=== PATIENT | female | born 1955 | race African-American/Black ===

== ENCOUNTER 2020-07-01 09:44 | Inpatient (IN) | payer MEDICARE, OTHER ==
--- NOTE | 2020-07-01 10:01 | BHS.RME ---
Substance Use & Tx History - Substance Use History Alcohol Substance amount: 2 pints liquor and 5 beers Frequency of use: Daily Substance route: Oral Date of Last Use: 07/01/20 Marijuana/Hashish Substance amount: $40 Frequency of use: Daily Substance route: Smoking Date of Last Use: 06/30/20 Nicotine Substance amount: 1 pack Frequency of use: Daily Substance route: Smoking Date of Last Use: 07/01/20 Physical/Psych/Mental Status - Behavior General Behavior: Increased activity (restlessness, agitation) Eye Contact: Normal - Cooperativeness Cooperativeness: Cooperative - Thinking Thought Processes: Tight, Logical, Goal Directed - Physical Health Problems Is patient presently having any pain?: No Does patient presently have any injuries (include location): No Does patient currently have a fever: No Is patient : No CIWA Nausea/Vomitin Muscle Tremors: 2 Anxiety: 2 Agitation: 2 Paroxysmal Sweats: 2 Orientation: 0-Oriented Tacttile Disturbances: 0-None Auditory Disturbances: 0-None Visual Disturbances: 0-None Headache: 2-Mild CIWA-Ar Total Score: 12
--- NOTE | 2020-07-01 12:49 | HP ---
CIWA Score Nausea/Vomitin Muscle Tremors: 2 Anxiety: 2 Agitation: 2 Paroxysmal Sweats: 2 Orientation: 0-Oriented Tacttile Disturbances: 0-None Auditory Disturbances: 0-None Visual Disturbances: 0-None Headache: 2-Mild CIWA-Ar Total Score: 12 - Admission Criteria OASAS Guidelines: Admission for Medically Managed Detox: Requires at least one of the followin. CIWA greater than 12 2. Seizures within the past 24 hours 3. Delirium tremens within the past 24 hours 4. Hallucinations within the past 24 hours 5. Acute intervention needed for co occurring medical disorder 6. Acute intervention needed for co occurring psychiatric disorder 7. Severe withdrawal that cannot be handled at a lower level of care (continued vomiting, continued diarrhea, abnormal vital signs) requiring intravenous medication and/or fluids 8. Admitting History and Physical - Admission Chief Complaint: Ms. Sanchez presents to [facility] stating "I need help, I'm drinking myself to ". History of Present Illness: Ms. Sanchez presents to [facility] stating "I need help, I'm drinking myself to ". She was last here in 2011. Her longest sobriety was less than one week. PMH: DM, hypothyroid, COPD PSH: ovarian tumor Psych: bipolar on gabapentin, risperdone and Seroquel SOC: own place in [place] Legal: none - Substance Use History Alcohol Substance amount: 2 pints liquor and 5 beers Frequency of use: Daily Substance route: Oral Date of Last Use: 07/01/20 First use age 14 y No seizure Blackouts: yes, last was 2 mos ago Admits to an eye printer machine Marijuana/Hashish Substance amount: $40 Frequency of use: Daily Substance route: Smoking Date of Last Use: 06/30/20 First use age 13 y Nicotine Substance amount: 1 pack Frequency of use: Daily Substance route: Smoking Date of Last Use: 07/01/20 First use age 13 y History Source: Patient Limitations to Obtaining History: No Limitations - Past Medical History ...LMP: 07/31/95 - Smoking History Smoking history: Current every day smoker Have you smoked in the past 12 months: Yes Aproximately how many cigarettes per day: 20 - Alcohol/Substance Use Hx Alcohol Use: Yes Admission ROS S - HPI Allergies/Adverse Reactions: Allergies Allergy/AdvReac Type Severity Reaction Status Date / Time chlorpromazine HCl Allergy Severe Verified 10/08/12 17:11 [From Thorazine] haloperidol [From Haldol] Allergy Severe Verified 10/08/12 17:11 haloperidol lactate Allergy Severe Verified 10/08/12 17:11 [From Haldol] thioridazine HCl Allergy Severe Verified 10/08/12 17:11 [From Mellaril] Exam Limitations: No Limitations - Ebola screening Have you traveled outside of the country in the last 21 days: No Have you been sick,other than usual withdrawal symptoms: No Do you have a fever: No - Review of Systems Constitutional: Unintentional Wgt. Loss (15 lbs in the past few mos she attributes to drinking alcohol) EENT: reports: No Symptoms Reported Respiratory: reports: No Symptoms reported Cardiac: reports: No Symptoms Reported GI: reports: No Symptoms Reported : reports: No Symptoms Reported Musculoskeletal: reports: No Symptoms Reported Integumentary: reports: No Symptoms Reported Neuro: reports: No Symptoms reported Endocrine: reports: Other (has DM, home glucose avg am glucose is 215) Psychiatric: reports: Anxious Patient History - Patient Medical History Hx Anemia: No Hx Asthma: No Hx Chronic Obstructive Pulmonary Disease (COPD): No Hx Cancer: No Hx Cardiac Disorders: Yes (UNSTABLE ANGINA) Hx Congestive Heart Failure: No Hx Hypertension: Yes (on medication) Hx Hypercholesterolemia: Yes (on medication) Hx Pacemaker: No HX Cerebrovascular Accident: No Hx Seizures: No Hx Dementia: No Hx Diabetes: Yes (on Insulin) Hx Gastrointestinal Disorders: Yes (Acid Reflux) Hx Genitourinary Disorders: No Hx Sexually Transmitted Disorders: Yes (unsure of name of disease) Hx Renal Disease (ESRD): No Hx Thyroid Disease: Yes (hypothyroidism) Hx Human Immunodeficiency Virus (HIV): No Hx Hepatitis C: No Hx Depression: Yes Hx Suicide Attempt: No Hx Bipolar Disorder: Yes (on medication) Hx Schizophrenia: No - Patient Surgical History Past Surgical History: Yes Hx Neurologic Surgery: No Hx Cataract Extraction: No Hx Cardiac Surgery: No Hx Lung Surgery: No Hx Breast Surgery: No Hx Breast Biopsy: No Hx Abdominal Surgery: No Hx Appendectomy: No Hx Cholecystectomy: No Hx Genitourinary Surgery: No Hx Section: No Hx Orthopedic Surgery: No Other Surgical History: Cyst removed from both ovaries in 1991 Anesthesia Reaction: No - PPD History Date: 08/02/12 - Reproductive History Last Menstrual Period: 07/31/95 - Smoking Cessation Smoking history: Current every day smoker Have you smoked in the past 12 months: Yes Aproximately how many cigarettes per day: 20 Hx Chewing Tobacco Use: No Initiated information on smoking cessation: Yes 'Breaking Loose' booklet given: 07/01/20 Admission Physical Exam [facility] - Vital Signs Vital Signs: 119/78, HR 124, RR 19, temp 97.0 - Physical General Appearance: Yes: No Apparent Distress, Nourished HEENTM: Yes: EOMI, Hearing grossly Normal, Normocephalic, Normal Voice Respiratory: Yes: Lungs Clear, Normal Breath Sounds, No Respiratory Distress, No Accessory Muscle Use Neck: Yes: Within Normal Limits, Supple Breast: Yes: Breast Exam Deferred Cardiology: Yes: Regular Rhythm, Regular Rate, S1, S2 Abdominal: Yes: Normal Bowel Sounds, Non Tender, Soft, Protuberent Back: Yes: Normal Inspection Musculoskeletal: Yes: full range of Motion, Gait Steady Extremities: Yes: Normal Inspection, Non-Tender Neurological: Yes: Alert, Normal Response Integumentary: Yes: Normal Color, Dry, Warm - Diagnostic (1) Alcohol dependence with withdrawal, uncomplicated Current Visit: Yes Status: Acute (2) Cannabis abuse Current Visit: Yes Status: Acute (3) Nicotine dependence Current Visit: Yes Status: Acute Qualifiers: Nicotine product type: cigarettes Substance use status: uncomplicated Qualified Code(s): F17.210 - Nicotine dependence, cigarettes, uncomplicated (4) Bipolar 1 disorder Current Visit: Yes Status: Chronic (5) DM Diabetes mellitus type 2 Current Visit: Yes Status: Acute (6) Hypothyroidism Current Visit: No Status: Chronic Cleared for Admission [facility] - Detox or Rehab [facility] Level of Care: Medically Managed Detox Regimen/Protocol: Librium Breathalyzer - Breathalyzer Breathalyzer: 0 Urine Drug Screen - Test Device Lot number: [id number] Expiration date: 06/28/22 - Control Is test valid?: Yes - Results Drug screen NEGATIVE: No Urine drug screen results: THC-Marijuana Inpatient Rehab Admission - Rehab Decision to Admit Inpatient rehab admission?: No
[2020-07-01] MEDS ORDERED: ASPIRIN COATED PO SCH (13:00)
[2020-07-01] MEDS ORDERED: LEVOTHYROXINE PO SCH (13:00)
[2020-07-01] MEDS ORDERED: ENALAPRIL MALEATE PO SCH (13:00)
[2020-07-01] MEDS ORDERED: MAGNESIUM CITRATE 300 ML BOTTLE PO PRN (13:01)
[2020-07-01] MEDS ORDERED: IBUPROFEN 400 MG TABLET (FP) PO PRN (13:01)
[2020-07-01] MEDS ORDERED: ACETAMINOPHEN 325 MG TABLET (FP) PO PRN (13:01)
[2020-07-01] MEDS ORDERED: METHOCARBAMOL 500 MG TABLET PO PRN (13:01)
[2020-07-01] MEDS ORDERED: NICOTINE POLACRILEX 2 MG GUM BUC PRN (13:01)
[2020-07-01] MEDS ORDERED: BISMUTH SUBSALICYLATE 262 MG/15 ML BTL PO PRN (13:01)
[2020-07-01] MEDS ORDERED: ONDANSETRON *ODT* 4 MG TABLET SL ONE (13:01)
[2020-07-01] MEDS ORDERED: MENTHOL/PHENOL 1 EACH UD MM PRN (13:01)
[2020-07-01] MEDS ORDERED: chlordiazePOXIDE HCL 25 MG CAPSULE PO PRN (13:01)
[2020-07-01 13:35] VITALS: BMI 29.5
[2020-07-01] MEDS: ENALAPRIL MALEATE 10 MG TABLET (FP) PO SCH (15:07)
[2020-07-01] MEDS: hydrOXYzine PAMOATE 25 MG CAPSULE (FP) PO SCH ×3 (15:07→22:25)
[2020-07-01] MEDS ORDERED: INSULIN SLIDING SCALE (NOVOLOG) 1 VIAL SQ ONE (16:58)
[2020-07-01 17:02] LABS: HEMATOCRIT 46.2 % (32.4-45.2); HEMOGLOBIN 15.6 GM/dL (10.7-15.3); MCHC 33.7 g/dl (32.0-36.0); PLATELET COUNT 303 K/MM3 (134-434); RBC 5.18 M/mm3 (3.60-5.2); RDW 15.1 % (11.6-15.6); WHITE BLOOD COUNT 9.4 K/mm3 (4.0-10.0)
[2020-07-01] MEDS: chlordiazePOXIDE HCL 25 MG CAPSULE PO SCH ×2 (17:24→22:26)
[2020-07-01] MEDS: INSULIN SLIDING SCALE (NOVOLOG) 1 VIAL SQ SCH ×2 (17:25→22:31)
[2020-07-01 17:33] LABS: ALBUMIN 3.4 g/dl (3.4-5.0); BILIRUBIN,TOTAL 0.6 mg/dL (0.2-1); CALCIUM 9.2 mg/dL (8.5-10.1); CREATININE 0.8 mg/dL (0.55-1.3); POTASSIUM 4.2 mmol/L (3.5-5.1); TOT PROT 7.4 g/dl (6.4-8.2)
[2020-07-01] MEDS: ATORVASTATIN CA 10 MG TABLET (FP) PO SCH (22:25)
[2020-07-01] MEDS: metFORMIN HCL 500 MG TABLET (FP) PO SCH (22:26)
[2020-07-01] MEDS: MELATONIN 5 MG TABLETS PO SCH (22:26)
[2020-07-01] MEDS: MAG HYDROX/AL HYDROX/SIMETH 30 ML UNIT-DOSE CUP PO PRN (22:26)
[2020-07-01] MEDS: INSULIN (LEVEMIR) 100 UNITS/ML UNITS SQ SCH (22:30)
[2020-07-01] MEDS: THIAMINE HCL 100 MG TABLET (FP) PO SCH (22:32)
[2020-07-02] MEDS: hydrOXYzine PAMOATE 25 MG CAPSULE (FP) PO SCH ×5 (05:39→22:37)
[2020-07-02] MEDS: chlordiazePOXIDE HCL 25 MG CAPSULE PO SCH ×4 (05:39→22:37)
[2020-07-02] MEDS: metFORMIN HCL 500 MG TABLET (FP) PO SCH ×3 (06:24→22:43)
[2020-07-02] MEDS: INSULIN SLIDING SCALE (NOVOLOG) 1 VIAL SQ SCH ×4 (07:02→22:43)
[2020-07-02] MEDS: LEVOTHYROXINE NA 25 MCG TABLET (FP) PO SCH (07:06)
[2020-07-02] MEDS ORDERED: PATIENT'S OWN MEDICATION (NON-FORMULARY) (Simvastatin [Zocor] 20 MG) PO SCH (10:00)
[2020-07-02] MEDS: PRENATAL VITAMINS W/ FOLIC ACID TABLET (FP) PO SCH (10:04)
[2020-07-02] MEDS: ENALAPRIL MALEATE 10 MG TABLET (FP) PO SCH (10:04)
[2020-07-02] MEDS: NICOTINE 7 MG/24 HOURS TOPICAL PATCH TD SCH (10:04)
[2020-07-02] MEDS: ASPIRIN COATED 81 MG TABLET.EC PO SCH (10:04)
--- NOTE | 2020-07-02 11:10 | CONSULT ---
[facility] Psychiatric Consult - Data Date of interview: 07/02/20 Admission source: [facility] Identifying data: Revisit to [facility] and admission to [address] [place] [address] for this 65 y/o AA female self-referred for detoxification treatment. SHAKIRA issues : alcohol, cannabis, nicotine. Patient is , mother of two, domiciled, unemployed and supported on SSI benefits. Substance Abuse History: Discussed with the patient. SHAKIRA profile as follows : Alcohol. Substance amount: 2 pints liquor and 5 beers. Frequency of use: Daily. Substance route: Oral. Date of Last Use: 07/01/20. First use age 14 y. No seizure. Blackouts: yes, last was 2 mos ago. 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 Marijuana/Hashish. Substance amount: $40. Frequency of use: Daily. Substance route: Smoking. Date of Last Use: 06/30/20. First use age 13 y. Nicotine. Substance amount: 1 pack. Frequency of use: Daily. Substance route: Smoking. Date of Last Use: 07/01/20. First use age 13 y. History Source: Patient. Limitations to Obtaining History: No Limitations Medical History: Medical profile is remarkable for hypothyroidism, dyslipidemia, diabetes mellitus, COPD, hypertension and history of surgery (excision of ovarian cysts : both ovaries). Psychiatric History: Patient presents with a history of multiple psychiatric hospitalizations ([facility] + [facility] + [facility] + [facility] + [facility]). Onset of psychiatric disturbances : age 14. Diagnosed with Bipolar Disorder. Ms Sanchez states that she sees a psychiatrist for medication management at the [facility] in [facility]. She endorses compliance with her medications and she insists on their continuation dyring this hospital course. Patient admits to a distant history of two suicide attempts (hanging + overdose with pills). Physical/Sexual Abuse/Trauma History: Not discussed. Patient declines. Additional Comment: Urine drug screen results: THC-Marijuana. Noted. Mental Status Exam - Mental Status Exam Alert and Oriented to: Time, Place, Person Cognitive Function: Good Patient Appearance: Disheveled Mood: Nervous, Withdrawn Affect: Mood Congruent, Constricted Patient Behavior: Fatigued, Appropriate, Cooperative Speech Pattern: Clear, Appropriate Voice Loudness: Normal Thought Process: Goal Oriented Thought Disorder: Not Present Hallucinations: Denies Suicidal Ideation: Denies Homicidal Ideation: Denies Insight/Judgement: Poor Sleep: Poorly, Difficulty falling asleep Appetite: Good Gait/Station: Other (not observed; in bed during interview) Psychiatric Findings - Problem List ([place] 1, 2,3) (1) Alcohol dependence with withdrawal, uncomplicated Current Visit: Yes Status: Acute (2) Cannabis abuse Current Visit: Yes Status: Chronic (3) Nicotine dependence Current Visit: Yes Status: Chronic Qualifiers: Nicotine product type: cigarettes Substance use status: uncomplicated Qualified Code(s): F17.210 - Nicotine dependence, cigarettes, uncomplicated (4) History of bipolar disorder Current Visit: Yes Status: Chronic (5) Substance induced mood disorder Current Visit: Yes Status: Chronic (6) Insomnia Current Visit: Yes Status: Chronic - Initial Treatment Plan Initial Treatment Plan: Psychoeducation. Sleep hygiene. Support. Detoxification in progress. Contact made with pharmacist, at [facility] ([phone]), for verification of medications : refills on file for seroquel 50 mg/am and 300 mg/hs + gabapentin 400 mg/bid + risperdal 3 mg/hs + vistaril 25 mg prn (picked up on 06/22/20). As per pharmacist, the patient will not need refills at discharge from [facility] (she has refills already available from [facility] provider). Will resume medications as follows (doses reduced in view of potential for oversedation + falls) : seroquel 50 mg po daily + 100 mg po hs + risperdal 1 mg po hs. Side effects/benefits of these molecules are discussed with the patient. Full doses to be restored upon completion of detoxification treatment. Patient is in agreement with this plan of care. Informed consent (verbal) granted to MD. Summers.
--- NOTE | 2020-07-02 12:59 | PN ---
[facility] CIWA - CIWA Score Nausea/Vomitin-No Nausea/No Vomiting Muscle Tremors: 2 Anxiety: 3 Agitation: 1-Slight > Activity Paroxysmal Sweats: 3 Orientation: 0-Oriented Tacttile Disturbances: 0-None Auditory Disturbances: 0-None Visual Disturbances: 0-None Headache: 0-None Present CIWA-Ar Total Score: 9 S Progress Note (SOAP) Subjective: c/o sweats, shakes, anxiety, headache, and irritability. Objective: 07/02/20 12:57 Vital Signs 07/02/20 07/02/20 06:49 08:40 Temperature 97.1 F L 98.4 F Pulse Rate 96 H 92 H Respiratory 16 18 Rate Blood Pressure 108/76 122/81 O2 Sat by Pulse 99 99 Oximetry (%) Laboratory Last Values WBC 9.4 K/mm3 (4.0-10.0) 07/01/20 12:15 RBC 5.18 M/mm3 (3.60-5.2) 07/01/20 12:15 Hgb 15.6 GM/dL (10.7-15.3) H 07/01/20 12:15 Hct 46.2 % (32.4-45.2) H D 07/01/20 12:15 MCV 89.0 fl (80-96) 07/01/20 12:15 MCH 30.0 pg (25.7-33.7) 07/01/20 12:15 MCHC 33.7 g/dl (32.0-36.0) 07/01/20 12:15 RDW 15.1 % (11.6-15.6) 07/01/20 12:15 Plt Count 303 K/MM3 (134-434) 07/01/20 12:15 MPV 10.0 fl (7.5-11.1) 07/01/20 12:15 Sodium 141 mmol/L (136-145) 07/01/20 12:15 Potassium 4.2 mmol/L (3.5-5.1) 07/01/20 12:15 Chloride 106 mmol/L (98-107) 07/01/20 12:15 Carbon Dioxide 23 mmol/L (21-32) 07/01/20 12:15 Anion Gap 12 MMOL/L (8-16) 07/01/20 12:15 BUN 4.0 mg/dL (7-18) L 07/01/20 12:15 Creatinine 0.8 mg/dL (0.55-1.3) 07/01/20 12:15 Est GFR (CKD-EPI)AfAm 88.42 07/01/20 12:15 Est GFR (CKD-EPI)NonAf 76.29 07/01/20 12:15 POC Glucometer 319 UNITS (80-120) 07/02/20 11:22 Random Glucose 114 mg/dL (74-106) H 07/01/20 12:15 Calcium 9.2 mg/dL (8.5-10.1) 07/01/20 12:15 Total Bilirubin 0.6 mg/dL (0.2-1) 07/01/20 12:15 AST 36 U/L (15-37) 07/01/20 12:15 ALT 30 U/L (13-61) 07/01/20 12:15 Alkaline Phosphatase 123 U/L (45-117) H 07/01/20 12:15 Total Protein 7.4 g/dl (6.4-8.2) 07/01/20 12:15 Albumin 3.4 g/dl (3.4-5.0) 07/01/20 12:15 Syphilis Serology Non-reactive (NONREACTIVE) 07/01/20 12:15 Labs noted. Assessment: 07/02/20 12:58 AOX3 and in no acute respiratory distress. Full ROM, ambulating in the unit. Withdrawal symptoms. Plan: continue detox.
[2020-07-02] MEDS ORDERED: INSULIN SLIDING SCALE (NOVOLOG) 1 VIAL SQ ONE ×2 (17:50→22:18)
[2020-07-02] MEDS: MAG HYDROX/AL HYDROX/SIMETH 30 ML UNIT-DOSE CUP PO PRN (18:19)
[2020-07-02] MEDS: THIAMINE HCL 100 MG TABLET (FP) PO SCH (22:37)
[2020-07-02] MEDS: QUEtiapine FUMARATE 100 MG TABLET (FP) PO SCH (22:37)
[2020-07-02] MEDS: ATORVASTATIN CA 10 MG TABLET (FP) PO SCH (22:37)
[2020-07-02] MEDS: MELATONIN 5 MG TABLETS PO SCH (22:38)
[2020-07-02] MEDS: risperiDONE 1 MG TABLET PO SCH (22:38)
[2020-07-02] MEDS: INSULIN (LEVEMIR) 100 UNITS/ML UNITS SQ SCH (22:43)
[2020-07-03] MEDS: chlordiazePOXIDE HCL 25 MG CAPSULE PO SCH ×2 (05:40→10:06)
[2020-07-03] MEDS: hydrOXYzine PAMOATE 25 MG CAPSULE (FP) PO SCH ×2 (05:40→10:05)
[2020-07-03] MEDS: INSULIN SLIDING SCALE (NOVOLOG) 1 VIAL SQ SCH ×4 (06:00→21:43)
[2020-07-03] MEDS ORDERED: INSULIN SLIDING SCALE (NOVOLOG) 1 VIAL SQ ONE ×2 (06:01→10:57)
[2020-07-03] MEDS: LEVOTHYROXINE NA 25 MCG TABLET (FP) PO SCH (06:06)
[2020-07-03] MEDS: metFORMIN HCL 500 MG TABLET (FP) PO SCH ×2 (06:06→21:42)
[2020-07-03] MEDS ORDERED: MASKS NR ONE (08:23)
[2020-07-03] MEDS: QUEtiapine FUMARATE 25 MG TABLET PO SCH (10:06)
[2020-07-03] MEDS: PRENATAL VITAMINS W/ FOLIC ACID TABLET (FP) PO SCH (10:07)
[2020-07-03] MEDS: ENALAPRIL MALEATE 10 MG TABLET (FP) PO SCH (10:07)
[2020-07-03] MEDS: NICOTINE 7 MG/24 HOURS TOPICAL PATCH TD SCH (10:08)
[2020-07-03] MEDS: ASPIRIN COATED 81 MG TABLET.EC PO SCH (10:08)
--- NOTE | 2020-07-03 11:33 | PN ---
[facility] CIWA - CIWA Score Nausea/Vomitin-No Nausea/No Vomiting Muscle Tremors: 3 Anxiety: 1-Mildly Anxious Agitation: 1-Slight > Activity Paroxysmal Sweats: 1-Minimal Palms Moist Orientation: 2-Disoriented Date<2 days (to days of month) Tacttile Disturbances: 0-None Auditory Disturbances: 0-None Visual Disturbances: 0-None Headache: 0-None Present CIWA-Ar Total Score: 8 BHS Progress Note (SOAP) Subjective: 65 years old obese female admitted on 07/01/20 for alcohol withdrawal sx management treating with librium detox regiment sitting on the edge of the bed eating breakfast no trouble chewing or swallowing slow self feeding hand to mouth motion speech slow disoriented to days of month discontinue vistaril ammonia level hcv tsh papcid 20 mg po bid discontinue motrin cane for ambulation Objective: 07/03/20 11:33 Vital Signs - 24 hr 07/02/20 07/02/20 07/02/20 13:00 16:52 20:35 Temperature 96.8 F L 96.9 F L 97.3 F L Pulse Rate 60 88 100 H Respiratory 18 18 16 Rate Blood Pressure 100/65 108/89 109/68 O2 Sat by Pulse 99 98 Oximetry (%) 07/03/20 07/03/20 05:43 08:35 Temperature 96.8 F L 96.1 F L Pulse Rate 88 90 Respiratory 20 18 Rate Blood Pressure 114/75 111/77 O2 Sat by Pulse 98 98 Oximetry (%) Laboratory Tests 07/01/20 07/01/20 07/01/20 12:15 12:15 12:15 WBC 9.4 RBC 5.18 Hgb 15.6 H Hct 46.2 H D MCV 89.0 MCH 30.0 MCHC 33.7 RDW 15.1 Plt Count 303 MPV 10.0 Sodium 141 Potassium 4.2 Chloride 106 Carbon Dioxide 23 Anion Gap 12 BUN 4.0 L Creatinine 0.8 Est GFR (CKD-EPI)AfAm 88.42 Est GFR (CKD-EPI)NonAf 76.29 POC Glucometer Random Glucose 114 H Calcium 9.2 Total Bilirubin 0.6 AST 36 ALT 30 Alkaline Phosphatase 123 H Total Protein 7.4 Albumin 3.4 Syphilis Serology Non-reactive COVID-19 (DAIJA) 07/01/20 07/01/2020 13:55 14:00 16:39 WBC RBC Hgb Hct MCV MCH MCHC RDW Plt Count MPV Sodium Potassium Chloride Carbon Dioxide Anion Gap BUN Creatinine Est GFR (CKD-EPI)AfAm Est GFR (CKD-EPI)NonAf POC Glucometer 131 211 Random Glucose Calcium Total Bilirubin AST ALT Alkaline Phosphatase Total Protein Albumin Syphilis Serology COVID-19 (DAIJA) Not detected 07/01/20 07/02/20 07/02/20 21:08 05:38 11:22 WBC RBC Hgb Hct MCV MCH MCHC RDW Plt Count MPV Sodium Potassium Chloride Carbon Dioxide Anion Gap BUN Creatinine Est GFR (CKD-EPI)AfAm Est GFR (CKD-EPI)NonAf POC Glucometer 88 103 319 Random Glucose Calcium Total Bilirubin AST ALT Alkaline Phosphatase Total Protein Albumin Syphilis Serology COVID-19 (DAIJA) 07/02/20 07/02/20 07/03/20 16:31 20:43 05:39 WBC RBC Hgb Hct MCV MCH MCHC RDW Plt Count MPV Sodium Potassium Chloride Carbon Dioxide Anion Gap BUN Creatinine Est GFR (CKD-EPI)AfAm Est GFR (CKD-EPI)NonAf POC Glucometer 106 217 248 Random Glucose Calcium Total Bilirubin AST ALT Alkaline Phosphatase Total Protein Albumin Syphilis Serology COVID-19 (DAIJA) 07/03/20 10:44 WBC RBC Hgb Hct MCV MCH MCHC RDW Plt Count MPV Sodium Potassium Chloride Carbon Dioxide Anion Gap BUN Creatinine Est GFR (CKD-EPI)AfAm Est GFR (CKD-EPI)NonAf POC Glucometer 168 Random Glucose Calcium Total Bilirubin AST ALT Alkaline Phosphatase Total Protein Albumin Syphilis Serology COVID-19 (DAIJA) 07/03/20 11:33 hold lisinopril if systolic below 110 insulin dependent diabetes II with insulin coverage Assessment: 07/03/20 11:35 alcohol withdrawal 07/03/20 11:35 hypothyroidism Plan: librium regiment
[2020-07-03] MEDS: FAMOTIDINE 20 MG TABLET PO SCH ×2 (12:06→21:43)
[2020-07-03] MEDS: MAG HYDROX/AL HYDROX/SIMETH 30 ML UNIT-DOSE CUP PO PRN (13:50)
[2020-07-03] MEDS ORDERED: ONDANSETRON *ODT* 4 MG TABLET SL ONE (15:02)
[2020-07-03] MEDS ORDERED: DICYCLOMINE HCL 20 MG TABLET PO ONE (15:04)
[2020-07-03] MEDS ORDERED: DICYCLOMINE HCL 10 MG CAPSULE PO ONE (16:00)
[2020-07-03] MEDS: chlordiazePOXIDE HCL 10 MG CAPSULE PO SCH ×2 (16:37→22:38)
[2020-07-03] MEDS: INSULIN (LEVEMIR) 100 UNITS/ML UNITS SQ SCH (21:42)
[2020-07-03] MEDS: THIAMINE HCL 100 MG TABLET (FP) PO SCH (21:42)
[2020-07-03] MEDS: ATORVASTATIN CA 10 MG TABLET (FP) PO SCH (21:42)
[2020-07-03] MEDS: MELATONIN 5 MG TABLETS PO SCH (21:43)
[2020-07-03] MEDS: risperiDONE 1 MG TABLET PO SCH ×2 (21:44→23:31)
[2020-07-03] MEDS: QUEtiapine FUMARATE 100 MG TABLET (FP) PO SCH (21:44)
[2020-07-04] MEDS ORDERED: chlordiazePOXIDE HCL 10 MG CAPSULE PO PRN
[2020-07-04] MEDS: ACETAMINOPHEN 325 MG TABLET (FP) PO PRN (03:52)
[2020-07-04] MEDS ORDERED: chlordiazePOXIDE HCL 10 MG CAPSULE PO SCH (05:00)
[2020-07-04] MEDS: metFORMIN HCL 500 MG TABLET (FP) PO SCH ×2 (06:06→22:14)
[2020-07-04] MEDS: LEVOTHYROXINE NA 25 MCG TABLET (FP) PO SCH (06:06)
[2020-07-04] MEDS: chlordiazePOXIDE 5 MG CAPSULE PO SCH ×3 (06:06→22:14)
[2020-07-04] MEDS ORDERED: INSULIN SLIDING SCALE (NOVOLOG) 1 VIAL SQ ONE ×4 (06:08→16:50)
[2020-07-04] MEDS: INSULIN SLIDING SCALE (NOVOLOG) 1 VIAL SQ SCH ×4 (08:03→22:27)
[2020-07-04] MEDS: QUEtiapine FUMARATE 25 MG TABLET PO SCH (09:35)
[2020-07-04] MEDS: PRENATAL VITAMINS W/ FOLIC ACID TABLET (FP) PO SCH (09:35)
[2020-07-04] MEDS: NICOTINE 7 MG/24 HOURS TOPICAL PATCH TD SCH (09:35)
[2020-07-04] MEDS: ENALAPRIL MALEATE 10 MG TABLET (FP) PO SCH (09:36)
[2020-07-04] MEDS: FAMOTIDINE 20 MG TABLET PO SCH ×2 (09:36→22:15)
[2020-07-04] MEDS: ASPIRIN COATED 81 MG TABLET.EC PO SCH (09:36)
--- NOTE | 2020-07-04 12:19 | PN ---
S CIWA - CIWA Score Nausea/Vomitin-Mild Nausea/No Vomiting Muscle Tremors: 2 Anxiety: 1-Mildly Anxious Agitation: 0-Normal Activity Paroxysmal Sweats: 1-Minimal Palms Moist Orientation: 0-Oriented Tacttile Disturbances: 0-None Auditory Disturbances: 0-None Visual Disturbances: 0-None Headache: 0-None Present CIWA-Ar Total Score: 5 BHS Progress Note (SOAP) Subjective: 65 years old female admitted on 07/01/20 for alcohol withdrawal sx management treating with librium detox regiment ms paulson is chronic alcoholism states that feeling dizziness and incoordination denies visual field loss but tired prefers to close eyes and resting in bed pupils size regular, equal, reaction to light, unable to complete accommodation weak masseter muscles clenches upper and lower eye lids edematous ms rodriguez seems sedated psychiatric referral for possible seroquel dosage adjustment Objective: 07/04/20 15:17 Vital Signs - 24 hr 07/03/20 07/03/20 07/04/20 16:49 21:10 07:37 Temperature 97.3 F L 97.1 F L 98 F Pulse Rate 98 H 101 H 88 Respiratory 16 16 18 Rate Blood Pressure 122/64 136/84 133/85 O2 Sat by Pulse 95 97 Oximetry (%) 07/04/20 07/04/20 07/04/20 08:40 12:35 14:52 Temperature 96.8 F L 96.8 F L Pulse Rate 89 102 H 94 H Respiratory 16 16 Rate Blood Pressure 128/78 162/96 120/76 O2 Sat by Pulse 98 Oximetry (%) Laboratory Tests 07/01/20 07/01/20 07/01/20 12:15 12:15 12:15 WBC 9.4 RBC 5.18 Hgb 15.6 H Hct 46.2 H D MCV 89.0 MCH 30.0 MCHC 33.7 RDW 15.1 Plt Count 303 MPV 10.0 Sodium 141 Potassium 4.2 Chloride 106 Carbon Dioxide 23 Anion Gap 12 BUN 4.0 L Creatinine 0.8 Est GFR (CKD-EPI)AfAm 88.42 Est GFR (CKD-EPI)NonAf 76.29 POC Glucometer Random Glucose 114 H Calcium 9.2 Total Bilirubin 0.6 AST 36 ALT 30 Alkaline Phosphatase 123 H Ammonia Total Protein 7.4 Albumin 3.4 Syphilis Serology Non-reactive COVID-19 (DAIJA) 07/01/20 07/01/20 07/01/20 13:55 14:00 16:39 WBC RBC Hgb Hct MCV MCH MCHC RDW Plt Count MPV Sodium Potassium Chloride Carbon Dioxide Anion Gap BUN Creatinine Est GFR (CKD-EPI)AfAm Est GFR (CKD-EPI)NonAf POC Glucometer 131 211 Random Glucose Calcium Total Bilirubin AST ALT Alkaline Phosphatase Ammonia Total Protein Albumin Syphilis Serology COVID-19 (DAIJA) Not detected 07/01/20 07/02/20 07/02/20 21:08 05:38 11:22 WBC RBC Hgb Hct MCV MCH MCHC RDW Plt Count MPV Sodium Potassium Chloride Carbon Dioxide Anion Gap BUN Creatinine Est GFR (CKD-EPI)AfAm Est GFR (CKD-EPI)NonAf POC Glucometer 88 103 319 Random Glucose Calcium Total Bilirubin AST ALT Alkaline Phosphatase Ammonia Total Protein Albumin Syphilis Serology COVID-19 (DAIJA) 07/02/20 07/02/20 07/03/20 16:31 20:43 05:39 WBC RBC Hgb Hct MCV MCH MCHC RDW Plt Count MPV Sodium Potassium Chloride Carbon Dioxide Anion Gap BUN Creatinine Est GFR (CKD-EPI)AfAm Est GFR (CKD-EPI)NonAf POC Glucometer 106 217 248 Random Glucose Calcium Total Bilirubin AST ALT Alkaline Phosphatase Ammonia Total Protein Albumin Syphilis Serology COVID-19 (DAIJA) 07/03/20 07/03/20 07/03/20 10:44 16:40 21:12 WBC RBC Hgb Hct MCV MCH MCHC RDW Plt Count MPV Sodium Potassium Chloride Carbon Dioxide Anion Gap BUN Creatinine Est GFR (CKD-EPI)AfAm Est GFR (CKD-EPI)NonAf POC Glucometer 168 216 206 Random Glucose Calcium Total Bilirubin AST ALT Alkaline Phosphatase Ammonia Total Protein Albumin Syphilis Serology COVID-19 (DAIJA) 07/04/20 07/04/20 07/04/20 06:05 08:30 11:50 WBC RBC Hgb Hct MCV MCH MCHC RDW Plt Count MPV Sodium Potassium Chloride Carbon Dioxide Anion Gap BUN Creatinine Est GFR (CKD-EPI)AfAm Est GFR (CKD-EPI)NonAf POC Glucometer 276 260 Random Glucose Calcium Total Bilirubin AST ALT Alkaline Phosphatase Ammonia 71.90 H Total Protein Albumin Syphilis Serology COVID-19 (DAIJA) ammonia level elevation lactulose 20 grams po repeat ammonia Assessment: 07/04/20 15:25 alcohol withdrawal hyperammonia Plan: librium regiment lactulose 20 grams repeat ammonia serum level
[2020-07-04] MEDS ORDERED: LACTULOSE 20 GM/30 ML UDC (FOR ORAL USE ONLY) PO ONE (14:18)
[2020-07-04] MEDS ORDERED: ALBUTEROL SO4 HFA INHALER IH PRN (14:32)
--- NOTE | 2020-07-04 14:57 | PN ---
Psychiatric Progress Note Vital Signs: Vital Signs Period Temp Pulse Resp BP Sys/Hinkle Pulse Ox Last 24 Hr 96.8 F-98 F 88-102 16-18 122-162/64-96 95-98 Date of Session: 07/04/20 Chief Complaint:: " I feel better today than yesterday. " HPI: Seen by Psychiatry on 07/02/20. Patient is a 65 y/o AA female with Bipolar Disorder co-morbid with SHAKIRA issues (alcohol + cannabis). Sedation is the reason for this psychiatric re-evaluation. ROS: Patient is alert and fully oriented on examination. Conversant. Admits to feeling less drowsy today than yesterday. Current Medications: Active Medications Generic Name Dose Route Start Last Admin Trade Name Freq PRN Reason Stop Dose Admin Acetaminophen 650 mg 07/01/20 13:01 07/04/20 03:52 Tylenol - PO 650 mg Q6H PRN Administration PAIN LEVEL 4 - 6 Acetaminophen 650 mg 07/01/20 13:01 Tylenol - PO Q6H PRN FEVER Al Hydroxide/Mg Hydroxide 30 ml 07/01/20 13:01 07/03/20 13:50 Mylanta Oral Suspension - PO 30 ml Q6H PRN Administration DYSPEPSIA Albuterol Sulfate 2 puff 07/04/20 14:32 Ventolin Hfa Inhaler - IH Q4H PRN SHORT OF BREATH/WHEEZING Aspirin 81 mg 07/02/20 10:00 07/04/20 09:36 Ecotrin - PO 81 mg DAILY JANELL Administration Atorvastatin Calcium 10 mg 07/01/20 22:00 07/03/20 21:42 Lipitor - PO 10 mg HS JANELL Administration Bismuth Subsalicylate 30 ml 07/01/20 13:01 Pepto-Bismol Liquid - PO Q1H PRN DIARRHEA Chlordiazepoxide HCl 10 mg 07/04/20 00:00 Librium - PO 07/05/20 00:00 Q4H PRN WITHDRAWAL(CONT SUBST) Chlordiazepoxide HCl 5 mg 07/06/20 05:00 Librium - PO 07/06/20 05:01 ONCE@0500 ONE Chlordiazepoxide HCl 5 mg 07/05/20 05:00 Librium - PO 07/05/20 17:01 Q12H JANELL Chlordiazepoxide HCl 5 mg 07/04/20 05:00 07/04/20 13:48 Librium - PO 07/04/20 21:01 5 mg Q8H JANELL Administration Enalapril Maleate 10 mg 07/03/20 11:33 07/04/20 09:36 Vasotec - PO 10 mg DAILY JANELL Administration Eucalyptus/Menthol/Phenol/Sorbitol 1 each 07/01/20 13:01 Cepastat Lozenge - MM 07/07/20 13:01 Q4H PRN SORE THROAT Famotidine 20 mg 07/03/20 11:30 07/04/20 09:36 Pepcid - PO 20 mg BID JANELL Administration Insulin Aspart 0 vial 07/01/20 16:30 07/04/20 11:53 Novolog Vial Sliding Scale - SQ 6 units ACHS [facility] Administration Protocol Insulin Detemir 50 units 07/01/20 22:00 07/03/20 21:42 Levemir Vial SQ Not Given HS [facility] Lactulose 20 gm 07/04/20 18:00 Cephulac (Oral Use) PO QID [facility] Levothyroxine Sodium 25 mcg 07/02/20 07:00 07/04/20 06:06 Synthroid - PO 25 mcg ACBK [facility] Administration Magnesium Citrate 300 ml 07/01/20 13:01 Citroma - PO Q48H PRN CONSTIPATION Magnesium Hydroxide 30 ml 07/01/20 13:01 Milk Of Magnesia - PO PRN PRN CONSTIPATION Melatonin 5 mg 07/01/20 22:00 07/03/20 21:43 Melatonin PO Not Given HS [facility] Metformin HCl 500 mg 07/01/20 22:00 07/04/20 06:06 Glucophage - PO 500 mg BID@0700,2200 [facility] Administration Methocarbamol 500 mg 07/01/20 13:01 Robaxin - PO 07/07/20 13:01 Q6H PRN MUSCLE SPASMS Nicotine 7 mg 07/02/20 10:00 07/04/20 09:35 Nicoderm Patch - TD 7 mg DAILY JANELL Administration Nicotine Polacrilex 2 mg 07/01/20 13:01 07/02/20 05:45 Nicorette Gum - BUC 2 mg Q2H PRN Administration NICOTINE REPLACEMENT RX Multivit/Folic Acid/Iron 1 tab 07/02/20 10:00 07/04/20 09:35 Vitamins (Sjr) - PO 1 tab DAILY JANELL Administration Thiamine HCl 100 mg 07/01/20 22:00 07/03/20 21:42 Vitamin B1 - PO 100 mg HS JANELL Administration Medication(s) Change(s): Seroquel + risperdal are discontinued until further orders. Psychiatry-Liaison will follow. Current Side Effect: Yes (oversedation reported over past two days; improved mentation today) Lab tests ordered: No Lab tests reviewed: Yes (elevated ammonia level : 71.9) Provider note:: Chart reviewed. Case discussed with referring source, Isabelle Wright. Patient has been observed as sedated, unsteady in the course of the preceding two days. Consequently, some medications were put on hold (seroquel, librium). Labs reveal hyperammonemia (71.9). On this examination, the patient is more related, alert, fully aware of her surroundings and cooperative. She is coherent and goal-directed. " I am feeling much beter today and I hope that they will get me a bed in rehab. I am tired of running in the streets after drugs and alcohol. I am spending so much money on these things." Personal hygiene is adequate. Mentation has significantly improved. Seroquel and risperdal are temporarily held. Psychiatry-Liaison will follow. Mental status is stable. Refer to MSE report for details. Recommend falls precautions and close observation for safety. Total face to face time:: 35 Mental Status Exam - Mental Status Exam Alert and Oriented to: Time, Place, Person Cognitive Function: Good Patient Appearance: Well Groomed Mood: Withdrawn Affect: Appropriate, Normal Range Patient Behavior: Fatigued, Appropriate, Cooperative Speech Pattern: Clear, Appropriate Voice Loudness: Normal Thought Process: Goal Oriented Thought Disorder: Not Present Hallucinations: Denies Suicidal Ideation: Denies Homicidal Ideation: Denies Insight/Judgement: Fair Sleep: Well Appetite: Fair, Weight loss Gait/Station: Other (unsteady) Psychiatric Treatment Plan - Problem List (1) Alcohol dependence with withdrawal, uncomplicated Current Visit: Yes Comment: . (2) Cannabis abuse Current Visit: Yes Comment: . (3) Nicotine dependence Current Visit: Yes Qualifiers: Nicotine product type: cigarettes Substance use status: uncomplicated Qualified Code(s): F17.210 - Nicotine dependence, cigarettes, uncomplicated Comment: . (4) History of bipolar disorder Current Visit: Yes Comment: . (5) Substance induced mood disorder Current Visit: Yes Comment: . (6) Insomnia Current Visit: Yes Comment: .
[2020-07-04] MEDS: LACTULOSE 20 GM/30 ML UDC (FOR ORAL USE ONLY) PO SCH ×2 (17:11→22:15)
[2020-07-04] MEDS: THIAMINE HCL 100 MG TABLET (FP) PO SCH (22:14)
[2020-07-04] MEDS: ATORVASTATIN CA 10 MG TABLET (FP) PO SCH (22:14)
[2020-07-04] MEDS: MELATONIN 5 MG TABLETS PO SCH (22:15)
[2020-07-04] MEDS: INSULIN (LEVEMIR) 100 UNITS/ML UNITS SQ SCH (22:26)
[2020-07-05] MEDS ORDERED: chlordiazePOXIDE HCL 10 MG CAPSULE PO SCH (05:00)
[2020-07-05] MEDS: chlordiazePOXIDE 5 MG CAPSULE PO SCH ×2 (05:41→16:37)
[2020-07-05] MEDS: metFORMIN HCL 500 MG TABLET (FP) PO SCH ×2 (06:14→21:48)
[2020-07-05] MEDS: LEVOTHYROXINE NA 25 MCG TABLET (FP) PO SCH (06:14)
[2020-07-05] MEDS ORDERED: INSULIN SLIDING SCALE (NOVOLOG) 1 VIAL SQ ONE ×3 (06:15→22:45)
[2020-07-05] MEDS: INSULIN SLIDING SCALE (NOVOLOG) 1 VIAL SQ SCH ×4 (07:06→21:48)
--- NOTE | 2020-07-05 08:37 | PN ---
S CIWA - CIWA Score Nausea/Vomitin-No Nausea/No Vomiting Muscle Tremors: 1-None Visible, but [place] Anxiety: 1-Mildly Anxious Agitation: 0-Normal Activity Paroxysmal Sweats: No Perspiration Orientation: 0-Oriented Tacttile Disturbances: 0-None Auditory Disturbances: 0-None Visual Disturbances: 0-None Headache: 0-None Present CIWA-Ar Total Score: 2 [facility] Progress Note (SOAP) Subjective: 65 years old female admitted on 07/01/20 for alcohol withdrawal sx management treating with librium detox regiment feeling better today ambulating with cane slow steady from room to day room to counselor's office and nurse's station ms paulson states that she is allergic to thorazine currently, denies trouble breathing no shortness of breath her edematous of facial soft tissue is gradually subsided cause is unknown however, ms paulson dose not please about the swelling of the face one dose prednision 20mg po x 1 no added salt + no concentrated sugar diet as per school transportation director recommended Objective: 07/05/20 10:59 Vital Signs - 24 hr 07/04/20 07/04/20 07/04/20 12:35 14:52 16:21 Temperature 96.8 F L 97.4 F L Pulse Rate 102 H 94 H 95 H Respiratory 16 18 Rate Blood Pressure 162/96 120/76 125/79 O2 Sat by Pulse 98 96 Oximetry (%) 07/04/20 07/05/20 07/05/20 20:29 06:22 08:42 Temperature 97.1 F L 97.5 F L 97.1 F L Pulse Rate 86 100 H 88 Respiratory 18 18 20 Rate Blood Pressure 116/71 140/90 140/83 O2 Sat by Pulse 100 96 Oximetry (%) Laboratory Tests 07/01/20 07/01/20 07/01/20 12:15 12:15 12:15 WBC 9.4 RBC 5.18 Hgb 15.6 H Hct 46.2 H D MCV 89.0 MCH 30.0 MCHC 33.7 RDW 15.1 Plt Count 303 MPV 10.0 Sodium 141 Potassium 4.2 Chloride 106 Carbon Dioxide 23 Anion Gap 12 BUN 4.0 L Creatinine 0.8 Est GFR (CKD-EPI)AfAm 88.42 Est GFR (CKD-EPI)NonAf 76.29 POC Glucometer Random Glucose 114 H Calcium 9.2 Total Bilirubin 0.6 AST 36 ALT 30 Alkaline Phosphatase 123 H Ammonia Total Protein 7.4 Albumin 3.4 TSH Syphilis Serology Non-reactive COVID-19 (DAIJA) 07/01/20 07/01/20 07/01/20 13:55 14:00 16:39 WBC RBC Hgb Hct MCV MCH MCHC RDW Plt Count MPV Sodium Potassium Chloride Carbon Dioxide Anion Gap BUN Creatinine Est GFR (CKD-EPI)AfAm Est GFR (CKD-EPI)NonAf POC Glucometer 131 211 Random Glucose Calcium Total Bilirubin AST ALT Alkaline Phosphatase Ammonia Total Protein Albumin TSH Syphilis Serology COVID-19 (DAIJA) Not detected 07/01/20 07/02/20 07/02/20 21:08 05:38 11:22 WBC RBC Hgb Hct MCV MCH MCHC RDW Plt Count MPV Sodium Potassium Chloride Carbon Dioxide Anion Gap BUN Creatinine Est GFR (CKD-EPI)AfAm Est GFR (CKD-EPI)NonAf POC Glucometer 88 103 319 Random Glucose Calcium Total Bilirubin AST ALT Alkaline Phosphatase Ammonia Total Protein Albumin TSH Syphilis Serology COVID-19 (DAIJA) 07/02/20 07/02/20 07/03/20 16:31 20:43 05:39 WBC RBC Hgb Hct MCV MCH MCHC RDW Plt Count MPV Sodium Potassium Chloride Carbon Dioxide Anion Gap BUN Creatinine Est GFR (CKD-EPI)AfAm Est GFR (CKD-EPI)NonAf POC Glucometer 106 217 248 Random Glucose Calcium Total Bilirubin AST ALT Alkaline Phosphatase Ammonia Total Protein Albumin TSH Syphilis Serology COVID-19 (DAIJA) 07/03/20 07/03/20 07/03/20 10:44 16:40 21:12 WBC RBC Hgb Hct MCV MCH MCHC RDW Plt Count MPV Sodium Potassium Chloride Carbon Dioxide Anion Gap BUN Creatinine Est GFR (CKD-EPI)AfAm Est GFR (CKD-EPI)NonAf POC Glucometer 168 216 206 Random Glucose Calcium Total Bilirubin AST ALT Alkaline Phosphatase Ammonia Total Protein Albumin TSH Syphilis Serology COVID-19 (DAIJA) 07/04/20 07/04/20 07/04/20 06:05 08:30 08:30 WBC RBC Hgb Hct MCV MCH MCHC RDW Plt Count MPV Sodium Potassium Chloride Carbon Dioxide Anion Gap BUN Creatinine Est GFR (CKD-EPI)AfAm Est GFR (CKD-EPI)NonAf POC Glucometer 276 Random Glucose Calcium Total Bilirubin AST ALT Alkaline Phosphatase Ammonia 71.90 H Total Protein Albumin TSH 2.55 Syphilis Serology COVID-19 (DAIJA) 07/04/20 07/04/20 07/04/20 11:50 16:28 20:39 WBC RBC Hgb Hct MCV MCH MCHC RDW Plt Count MPV Sodium Potassium Chloride Carbon Dioxide Anion Gap BUN Creatinine Est GFR (CKD-EPI)AfAm Est GFR (CKD-EPI)NonAf POC Glucometer 260 239 116 Random Glucose Calcium Total Bilirubin AST ALT Alkaline Phosphatase Ammonia Total Protein Albumin TSH Syphilis Serology COVID-19 (DAIJA) 07/05/20 07/05/20 05:40 07:50 WBC RBC Hgb Hct MCV MCH MCHC RDW Plt Count MPV Sodium Potassium Chloride Carbon Dioxide Anion Gap BUN Creatinine Est GFR (CKD-EPI)AfAm Est GFR (CKD-EPI)NonAf POC Glucometer 263 Random Glucose Calcium Total Bilirubin AST ALT Alkaline Phosphatase Ammonia 61.10 H Total Protein Albumin TSH Syphilis Serology COVID-19 (DAIJA) ammonia serum reduction through lactulose appears to be effective continue lactulose 07/05/20 11:02 repeat ammonia Assessment: 07/05/20 11:02 alcohol withdrawal Plan: librium regiment
[2020-07-05] MEDS ORDERED: predniSONE 20 MG TABLET (UD) PO ONE (09:52)
[2020-07-05] MEDS: PRENATAL VITAMINS W/ FOLIC ACID TABLET (FP) PO SCH (10:05)
[2020-07-05] MEDS: LACTULOSE 20 GM/30 ML UDC (FOR ORAL USE ONLY) PO SCH ×4 (10:06→21:47)
[2020-07-05] MEDS: FAMOTIDINE 20 MG TABLET PO SCH ×2 (10:06→21:50)
[2020-07-05] MEDS: NICOTINE 7 MG/24 HOURS TOPICAL PATCH TD SCH (10:06)
[2020-07-05] MEDS: ENALAPRIL MALEATE 10 MG TABLET (FP) PO SCH (10:06)
[2020-07-05] MEDS: ASPIRIN COATED 81 MG TABLET.EC PO SCH (10:06)
[2020-07-05] MEDS: ACETAMINOPHEN 325 MG TABLET (FP) PO PRN ×2 (10:10→20:08)
--- NOTE | 2020-07-05 10:26 | EKG ---
Test Reason : Blood Pressure : / mmHG Vent. Rate : 089 BPM Atrial Rate : 089 BPM P-R Int : 152 ms QRS Dur : 066 ms QT Int : 356 ms P-R-T Axes : -10 044 029 degrees QTc Int : 433 ms NORMAL SINUS RHYTHM LOW VOLTAGE QRS BORDERLINE ECG WHEN COMPARED WITH ECG OF 04-JUL-2020 08:26, NO SIGNIFICANT CHANGE WAS FOUND Confirmed by MD North Edward ([id number]) on 07/05/2020 10:26:08 AM Referred By: Confirmed By:Bharathi North MD
--- NOTE | 2020-07-05 10:28 | EKG ---
Test Reason : Blood Pressure : / mmHG Vent. Rate : 088 BPM Atrial Rate : 088 BPM P-R Int : 150 ms QRS Dur : 064 ms QT Int : 358 ms P-R-T Axes : 073 019 029 degrees QTc Int : 433 ms NORMAL SINUS RHYTHM LOW VOLTAGE QRS BORDERLINE ECG NO PREVIOUS ECGS AVAILABLE Confirmed by MD Mary Anne, Bharathi ([id number]) on 07/05/2020 10:28:32 AM Referred By: Confirmed By:Bharathi North MD
--- NOTE | 2020-07-05 17:55 | PN ---
[facility] Progress Note Note: Psychiatry Attending's note : Hatchery Laborer went to see patient. Follow-up visit. With HALIE Amanda. In attendance. Patient found asleep. No evidence of distress. Examination deferred.
[2020-07-05] MEDS: THIAMINE HCL 100 MG TABLET (FP) PO SCH (21:47)
[2020-07-05] MEDS: INSULIN (LEVEMIR) 100 UNITS/ML UNITS SQ SCH (21:48)
[2020-07-05] MEDS: ATORVASTATIN CA 10 MG TABLET (FP) PO SCH (21:48)
[2020-07-05] MEDS: MELATONIN 5 MG TABLETS PO SCH (21:50)
[2020-07-06] MEDS ORDERED: chlordiazePOXIDE 5 MG CAPSULE PO ONE (05:00)
[2020-07-06] MEDS ORDERED: chlordiazePOXIDE HCL 10 MG CAPSULE PO ONE (05:00)
[2020-07-06] MEDS: metFORMIN HCL 500 MG TABLET (FP) PO SCH ×2 (06:23→21:04)
[2020-07-06] MEDS: LEVOTHYROXINE NA 25 MCG TABLET (FP) PO SCH (06:23)
[2020-07-06] MEDS: INSULIN SLIDING SCALE (NOVOLOG) 1 VIAL SQ SCH ×4 (06:27→21:11)
--- NOTE | 2020-07-06 09:01 | HP ---
[facility] Rehab Assess/Revision - Admission History Admitted to Rehab from: [facility] Date of Admission to Rehab: 07/06/20 - Vital signs Vital Signs: Vital Signs Period Temp Pulse Resp BP Sys/Hinkle Pulse Ox Last 24 Hr 97.1 F-97.7 F 92-95 16-20 118-164/80-97 95-99 - Findings Detox History & Physical reviewed: Yes Concur with findings: Yes Comments/Additional Findings: transferred from detox to rehab admission as per protocol Inpatient Rehab Admission - Rehab Decision to Admit Inpatient rehab admission?: Yes - Initial Determination Are CD services needed?: Yes Free of communicable disease: Yes Not in need of hospitalization: Yes - Rehab Admission Criteria Previous failed treatment: Yes Poor recovery environment: Yes Comorbidities: Yes Lacks judgement: Yes Patient is meeting Inpatient Rehab admission criteria:: Yes
[2020-07-06] MEDS: PRENATAL VITAMINS W/ FOLIC ACID TABLET (FP) PO SCH (10:04)
[2020-07-06] MEDS: FAMOTIDINE 20 MG TABLET PO SCH ×2 (10:04→21:04)
[2020-07-06] MEDS: LACTULOSE 20 GM/30 ML UDC (FOR ORAL USE ONLY) PO SCH ×4 (10:04→21:04)
[2020-07-06] MEDS: NICOTINE 7 MG/24 HOURS TOPICAL PATCH TD SCH (10:04)
[2020-07-06] MEDS: ASPIRIN COATED 81 MG TABLET.EC PO SCH (10:04)
[2020-07-06] MEDS: ENALAPRIL MALEATE 10 MG TABLET (FP) PO SCH (10:04)
--- NOTE | 2020-07-06 15:33 | CONSULT ---
[facility] Psychiatric Consult - Data Date of interview: 07/06/20 Admission source: Transfer from [address] [place] [address]. Identifying data: Detoxification completed at [address] [place] [address]. Patient has just entered rehabilitation treatment at [facility] for maintenance of sobriety + management of co-morbid schizoaffective disorder, bipolar type. Patient is a 65 y/o AA female, , mother of two, domiciled, unemployed and supported on SSI benefits. Substance Abuse History: Re-discussed with the patient. SHAKIRA profile as follows : Alcohol. Substance amount: 2 pints liquor and 5 beers. Frequency of use: Daily. Substance route: Oral. Date of Last Use: 07/01/20. First use age 14 y. No seizure. Blackouts: yes, last was 2 mos ago. Admits to an eye price clerk. Marijuana/Hashish. Substance amount: $40. Frequency of use: Daily. Substance route: Smoking. Date of Last Use: 06/30/20. First use age 13 y. Nicotine. Substance amount: 1 pack. Frequency of use: Daily. Substance route: Smoking. Date of Last Use: 07/01/20. First use age 13 y. History Source: Patient. Limitations to Obtaining History: No Limitations. Medical History: Medical profile is remarkable for hypothyroidism, dyslipidemia, diabetes mellitus, COPD, hypertension and history of surgery (excision of ovarian cysts : both ovaries). Psychiatric History: No change in longitudinal history since encounter at [address] [place] [address]. History as follows : antecedent of multiple psychiatric hospitalizations ([facility] + [facility] + [facility] + [facility] + [facility]). Onset of psychiatric disturbances : age 14. Diagnosed with Bipolar Disorder. Ms Sanchez states that she sees a psychiatrist for medication management at the [facility] in [facility]. She endorses compliance with her medications and she insists on their continuation dyring this hospital course. Patient admits to a distant history of two suicide attempts (hanging + overdose with pills). Physical/Sexual Abuse/Trauma History: Patient denies. Additional Comment: Urine drug screen results: THC-Marijuana. Noted. Mental Status Exam - Mental Status Exam Alert and Oriented to: Time, Place, Person Cognitive Function: Good Patient Appearance: Well Groomed Mood: Hopeful, Euthymic Affect: Appropriate, Normal Range Patient Behavior: Appropriate, Cooperative Speech Pattern: Clear, Appropriate Voice Loudness: Normal Thought Process: Intact, Goal Oriented Thought Disorder: Not Present Hallucinations: Denies Suicidal Ideation: Denies Homicidal Ideation: Denies Insight/Judgement: Fair Sleep: Well Appetite: Good Gait/Station: Normal Psychiatric Findings - Problem List ([place] 1, 2,3) (1) Alcohol use disorder Current Visit: Yes Status: Chronic Comment: . (2) Cannabis abuse Current Visit: Yes Status: Chronic Comment: . (3) Nicotine dependence Current Visit: Yes Status: Chronic Qualifiers: Nicotine product type: cigarettes Substance use status: uncomplicated Qualified Code(s): F17.210 - Nicotine dependence, cigarettes, uncomplicated Comment: . (4) History of bipolar disorder Current Visit: Yes Status: Chronic Comment: . (5) Substance induced mood disorder Current Visit: Yes Status: Chronic Comment: . (6) Insomnia Current Visit: Yes Status: Chronic Comment: . - Initial Treatment Plan Initial Treatment Plan: Continue psychoeducation. Sleep hygiene. Support. Resumed : seroquel 100 mg po hs + risperdal 1 mg po daily. Hold gabapentin for now (risk of falls). Met with the patient and discussed side effects/benefits. Consent (verbal) granted to MD. Summers.
[2020-07-06] MEDS: ATORVASTATIN CA 10 MG TABLET (FP) PO SCH (21:04)
[2020-07-06] MEDS: MELATONIN 5 MG TABLETS PO SCH (21:04)
[2020-07-06] MEDS: THIAMINE HCL 100 MG TABLET (FP) PO SCH (21:04)
[2020-07-06] MEDS: QUEtiapine FUMARATE 100 MG TABLET (FP) PO SCH (21:06)
[2020-07-06] MEDS ORDERED: INSULIN SLIDING SCALE (NOVOLOG) 1 VIAL SQ ONE (21:08)
[2020-07-06] MEDS: INSULIN (LEVEMIR) 100 UNITS/ML UNITS SQ SCH (21:11)
[2020-07-07] MEDS: LEVOTHYROXINE NA 25 MCG TABLET (FP) PO SCH (06:29)
[2020-07-07] MEDS: metFORMIN HCL 500 MG TABLET (FP) PO SCH ×2 (06:29→21:03)
[2020-07-07] MEDS: INSULIN SLIDING SCALE (NOVOLOG) 1 VIAL SQ SCH ×4 (06:30→21:00)
[2020-07-07] MEDS: ASPIRIN COATED 81 MG TABLET.EC PO SCH (09:28)
[2020-07-07] MEDS: FAMOTIDINE 20 MG TABLET PO SCH ×2 (09:28→21:03)
[2020-07-07] MEDS: PRENATAL VITAMINS W/ FOLIC ACID TABLET (FP) PO SCH (09:28)
[2020-07-07] MEDS: LACTULOSE 20 GM/30 ML UDC (FOR ORAL USE ONLY) PO SCH ×4 (09:28→21:02)
[2020-07-07] MEDS: ENALAPRIL MALEATE 10 MG TABLET (FP) PO SCH (09:28)
[2020-07-07] MEDS: NICOTINE 7 MG/24 HOURS TOPICAL PATCH TD SCH (09:29)
[2020-07-07] MEDS ORDERED: risperiDONE 1 MG TABLET PO SCH (10:00)
[2020-07-07] MEDS ORDERED: INSULIN SLIDING SCALE (NOVOLOG) 1 VIAL SQ ONE ×2 (11:34→18:50)
--- NOTE | 2020-07-07 15:10 | PN ---
[facility] Progress Note Note: Patient with elevated ammonia level. On Lactulose. Patient is stable, oriented x4, with steady gait. Ammonia level ordered for 07/08/20
[2020-07-07] MEDS: INSULIN (LEVEMIR) 100 UNITS/ML UNITS SQ SCH (21:01)
[2020-07-07] MEDS: THIAMINE HCL 100 MG TABLET (FP) PO SCH (21:03)
[2020-07-07] MEDS: MELATONIN 5 MG TABLETS PO SCH (21:03)
[2020-07-07] MEDS: QUEtiapine FUMARATE 100 MG TABLET (FP) PO SCH (21:03)
[2020-07-07] MEDS: ATORVASTATIN CA 10 MG TABLET (FP) PO SCH (21:03)
[2020-07-08] MEDS: LEVOTHYROXINE NA 25 MCG TABLET (FP) PO SCH (06:02)
[2020-07-08] MEDS: INSULIN SLIDING SCALE (NOVOLOG) 1 VIAL SQ SCH ×4 (07:04→22:06)
[2020-07-08] MEDS: metFORMIN HCL 500 MG TABLET (FP) PO SCH ×2 (07:04→22:02)
[2020-07-08] MEDS: ENALAPRIL MALEATE 10 MG TABLET (FP) PO SCH (09:39)
[2020-07-08] MEDS: ASPIRIN COATED 81 MG TABLET.EC PO SCH (09:39)
[2020-07-08] MEDS: PRENATAL VITAMINS W/ FOLIC ACID TABLET (FP) PO SCH (09:39)
[2020-07-08] MEDS: FAMOTIDINE 20 MG TABLET PO SCH ×2 (09:39→22:04)
[2020-07-08] MEDS: NICOTINE 7 MG/24 HOURS TOPICAL PATCH TD SCH (09:40)
[2020-07-08] MEDS: LACTULOSE 20 GM/30 ML UDC (FOR ORAL USE ONLY) PO SCH ×4 (09:40→22:02)
--- NOTE | 2020-07-08 15:51 | PN ---
[facility] Progress Note Note: Laboratory Tests 07/01/20 07/01/20 07/01/20 12:15 12:15 12:15 WBC 9.4 RBC 5.18 Hgb 15.6 H Hct 46.2 H D MCV 89.0 MCH 30.0 MCHC 33.7 RDW 15.1 Plt Count 303 MPV 10.0 Sodium 141 Potassium 4.2 Chloride 106 Carbon Dioxide 23 Anion Gap 12 BUN 4.0 L Creatinine 0.8 Est GFR (CKD-EPI)AfAm 88.42 Est GFR (CKD-EPI)NonAf 76.29 POC Glucometer Random Glucose 114 H Calcium 9.2 Total Bilirubin 0.6 AST 36 ALT 30 Alkaline Phosphatase 123 H Ammonia Total Protein 7.4 Albumin 3.4 TSH Syphilis Serology Non-reactive COVID-19 (DAIJA) Hep C Ab Diagnostic HCV RNA PCR w/Genot Rflx Liver Fibrosis Interp 07/01/20 07/01/20 07/01/20 13:55 14:00 16:39 WBC RBC Hgb Hct MCV MCH MCHC RDW Plt Count MPV Sodium Potassium Chloride Carbon Dioxide Anion Gap BUN Creatinine Est GFR (CKD-EPI)AfAm Est GFR (CKD-EPI)NonAf POC Glucometer 131 211 Random Glucose Calcium Total Bilirubin AST ALT Alkaline Phosphatase Ammonia Total Protein Albumin TSH Syphilis Serology COVID-19 (DAIJA) Not detected Hep C Ab Diagnostic HCV RNA PCR w/Genot Rflx Liver Fibrosis Interp 07/01/20 07/02/20 07/02/20 21:08 05:38 11:22 WBC RBC Hgb Hct MCV MCH MCHC RDW Plt Count MPV Sodium Potassium Chloride Carbon Dioxide Anion Gap BUN Creatinine Est GFR (CKD-EPI)AfAm Est GFR (CKD-EPI)NonAf POC Glucometer 88 103 319 Random Glucose Calcium Total Bilirubin AST ALT Alkaline Phosphatase Ammonia Total Protein Albumin TSH Syphilis Serology COVID-19 (DAIJA) Hep C Ab Diagnostic HCV RNA PCR w/Genot Rflx Liver Fibrosis Interp 07/02/20 07/02/20 07/03/20 16:31 20:43 05:39 WBC RBC Hgb Hct MCV MCH MCHC RDW Plt Count MPV Sodium Potassium Chloride Carbon Dioxide Anion Gap BUN Creatinine Est GFR (CKD-EPI)AfAm Est GFR (CKD-EPI)NonAf POC Glucometer 106 217 248 Random Glucose Calcium Total Bilirubin AST ALT Alkaline Phosphatase Ammonia Total Protein Albumin TSH Syphilis Serology COVID-19 (DAIJA) Hep C Ab Diagnostic HCV RNA PCR w/Genot Rflx Liver Fibrosis Interp 07/03/20 07/03/20 07/03/20 10:44 16:40 21:12 WBC RBC Hgb Hct MCV MCH MCHC RDW Plt Count MPV Sodium Potassium Chloride Carbon Dioxide Anion Gap BUN Creatinine Est GFR (CKD-EPI)AfAm Est GFR (CKD-EPI)NonAf POC Glucometer 168 216 206 Random Glucose Calcium Total Bilirubin AST ALT Alkaline Phosphatase Ammonia Total Protein Albumin TSH Syphilis Serology COVID-19 (DAIJA) Hep C Ab Diagnostic HCV RNA PCR w/Genot Rflx Liver Fibrosis Interp 07/04/20 07/04/20 07/04/20 06:05 07:50 08:30 WBC RBC Hgb Hct MCV MCH MCHC RDW Plt Count MPV Sodium Potassium Chloride Carbon Dioxide Anion Gap BUN Creatinine Est GFR (CKD-EPI)AfAm Est GFR (CKD-EPI)NonAf POC Glucometer 276 Random Glucose Calcium Total Bilirubin AST ALT Alkaline Phosphatase Ammonia 71.90 H Total Protein Albumin TSH Syphilis Serology COVID-19 (DAIJA) Hep C Ab Diagnostic 3.1 H HCV RNA PCR w/Genot Rflx Hcv not detected Liver Fibrosis Interp 07/04/20 07/04/20 07/04/20 08:30 11:50 16:28 WBC RBC Hgb Hct MCV MCH MCHC RDW Plt Count MPV Sodium Potassium Chloride Carbon Dioxide Anion Gap BUN Creatinine Est GFR (CKD-EPI)AfAm Est GFR (CKD-EPI)NonAf POC Glucometer 260 239 Random Glucose Calcium Total Bilirubin AST ALT Alkaline Phosphatase Ammonia Total Protein Albumin TSH 2.55 Syphilis Serology COVID-19 (DAIJA) Hep C Ab Diagnostic HCV RNA PCR w/Genot Rflx Liver Fibrosis Interp 07/04/20 07/05/20 07/05/20 20:39 05:40 07:50 WBC RBC Hgb Hct MCV MCH MCHC RDW Plt Count MPV Sodium Potassium Chloride Carbon Dioxide Anion Gap BUN Creatinine Est GFR (CKD-EPI)AfAm Est GFR (CKD-EPI)NonAf POC Glucometer 116 263 Random Glucose Calcium Total Bilirubin AST ALT Alkaline Phosphatase Ammonia 61.10 H Total Protein Albumin TSH Syphilis Serology COVID-19 (DAIJA) Hep C Ab Diagnostic HCV RNA PCR w/Genot Rflx Liver Fibrosis Interp 07/05/20 07/05/20 07/05/20 11:47 16:33 21:27 WBC RBC Hgb Hct MCV MCH MCHC RDW Plt Count MPV Sodium Potassium Chloride Carbon Dioxide Anion Gap BUN Creatinine Est GFR (CKD-EPI)AfAm Est GFR (CKD-EPI)NonAf POC Glucometer 233 267 285 Random Glucose Calcium Total Bilirubin AST ALT Alkaline Phosphatase Ammonia Total Protein Albumin TSH Syphilis Serology COVID-19 (DAIJA) Hep C Ab Diagnostic HCV RNA PCR w/Genot Rflx Liver Fibrosis Interp 07/06/20 07/06/20 07/06/20 06:25 08:10 12:10 WBC RBC Hgb Hct MCV MCH MCHC RDW Plt Count MPV Sodium Potassium Chloride Carbon Dioxide Anion Gap BUN Creatinine Est GFR (CKD-EPI)AfAm Est GFR (CKD-EPI)NonAf POC Glucometer 79 106 Random Glucose Calcium Total Bilirubin AST ALT Alkaline Phosphatase Ammonia 50.90 H Total Protein Albumin TSH Syphilis Serology COVID-19 (DAIJA) Hep C Ab Diagnostic HCV RNA PCR w/Genot Rflx Liver Fibrosis Interp 07/06/20 07/06/20 07/07/20 16:23 21:07 06:28 WBC RBC Hgb Hct MCV MCH MCHC RDW Plt Count MPV Sodium Potassium Chloride Carbon Dioxide Anion Gap BUN Creatinine Est GFR (CKD-EPI)AfAm Est GFR (CKD-EPI)NonAf POC Glucometer 133 275 84 Random Glucose Calcium Total Bilirubin AST ALT Alkaline Phosphatase Ammonia Total Protein Albumin TSH Syphilis Serology COVID-19 (DAIJA) Hep C Ab Diagnostic HCV RNA PCR w/Genot Rflx Liver Fibrosis Interp 07/07/20 07/07/20 07/07/20 11:31 16:17 20:57 WBC RBC Hgb Hct MCV MCH MCHC RDW Plt Count MPV Sodium Potassium Chloride Carbon Dioxide Anion Gap BUN Creatinine Est GFR (CKD-EPI)AfAm Est GFR (CKD-EPI)NonAf POC Glucometer 198 143 289 Random Glucose Calcium Total Bilirubin AST ALT Alkaline Phosphatase Ammonia Total Protein Albumin TSH Syphilis Serology COVID-19 (DAIJA) Hep C Ab Diagnostic HCV RNA PCR w/Genot Rflx Liver Fibrosis Interp 07/08/20 07/08/20 07/08/20 06:01 08:00 11:45 WBC RBC Hgb Hct MCV MCH MCHC RDW Plt Count MPV Sodium Potassium Chloride Carbon Dioxide Anion Gap BUN Creatinine Est GFR (CKD-EPI)AfAm Est GFR (CKD-EPI)NonAf POC Glucometer 119 94 Random Glucose Calcium Total Bilirubin AST ALT Alkaline Phosphatase Ammonia 74.40 H Total Protein Albumin TSH Syphilis Serology COVID-19 (DAIJA) Hep C Ab Diagnostic HCV RNA PCR w/Genot Rflx Liver Fibrosis Interp Vital Signs Temperature 97.7 F 07/08/20 08:30 Pulse Rate 93 H 07/08/20 08:30 Respiratory Rate 18 07/08/20 08:30 Blood Pressure 148/85 07/08/20 08:30 O2 Sat by Pulse Oximetry (%) 95 07/08/20 15:12 Patient continues with Lactulose QID. Ammonia level toda 74.40. Will continue same dose and repeat ammonia level 07/11/2020.
[2020-07-08] MEDS: QUEtiapine FUMARATE 100 MG TABLET (FP) PO SCH (22:03)
[2020-07-08] MEDS: ATORVASTATIN CA 10 MG TABLET (FP) PO SCH (22:04)
[2020-07-08] MEDS: THIAMINE HCL 100 MG TABLET (FP) PO SCH (22:04)
[2020-07-08] MEDS: MELATONIN 5 MG TABLETS PO SCH (22:04)
[2020-07-08] MEDS ORDERED: INSULIN SLIDING SCALE (NOVOLOG) 1 VIAL SQ ONE (22:06)
[2020-07-08] MEDS: INSULIN (LEVEMIR) 100 UNITS/ML UNITS SQ SCH (22:08)
[2020-07-09] MEDS: INSULIN SLIDING SCALE (NOVOLOG) 1 VIAL SQ SCH ×4 (06:19→21:03)
[2020-07-09] MEDS: metFORMIN HCL 500 MG TABLET (FP) PO SCH ×2 (06:20→21:07)
[2020-07-09] MEDS: LEVOTHYROXINE NA 25 MCG TABLET (FP) PO SCH (06:21)
[2020-07-09] MEDS: ENALAPRIL MALEATE 10 MG TABLET (FP) PO SCH (10:23)
[2020-07-09] MEDS: NICOTINE 7 MG/24 HOURS TOPICAL PATCH TD SCH (10:23)
[2020-07-09] MEDS: PRENATAL VITAMINS W/ FOLIC ACID TABLET (FP) PO SCH (10:23)
[2020-07-09] MEDS: LACTULOSE 20 GM/30 ML UDC (FOR ORAL USE ONLY) PO SCH ×4 (10:23→21:06)
[2020-07-09] MEDS: FAMOTIDINE 20 MG TABLET PO SCH ×2 (10:23→21:07)
[2020-07-09] MEDS: ASPIRIN COATED 81 MG TABLET.EC PO SCH (10:23)
[2020-07-09] MEDS ORDERED: INSULIN SLIDING SCALE (NOVOLOG) 1 VIAL SQ ONE ×2 (11:52→19:49)
[2020-07-09] MEDS: INSULIN (LEVEMIR) 100 UNITS/ML UNITS SQ SCH (21:05)
[2020-07-09] MEDS: QUEtiapine FUMARATE 100 MG TABLET (FP) PO SCH (21:06)
[2020-07-09] MEDS: THIAMINE HCL 100 MG TABLET (FP) PO SCH (21:06)
[2020-07-09] MEDS: MELATONIN 5 MG TABLETS PO SCH (21:07)
[2020-07-09] MEDS: ATORVASTATIN CA 10 MG TABLET (FP) PO SCH (21:08)
[2020-07-10] MEDS: LEVOTHYROXINE NA 25 MCG TABLET (FP) PO SCH (06:35)
[2020-07-10] MEDS: INSULIN SLIDING SCALE (NOVOLOG) 1 VIAL SQ SCH ×4 (06:36→21:55)
[2020-07-10] MEDS: metFORMIN HCL 500 MG TABLET (FP) PO SCH ×2 (06:36→21:44)
[2020-07-10] MEDS: ENALAPRIL MALEATE 10 MG TABLET (FP) PO SCH (10:53)
[2020-07-10] MEDS: LACTULOSE 20 GM/30 ML UDC (FOR ORAL USE ONLY) PO SCH ×4 (10:53→21:44)
[2020-07-10] MEDS: ASPIRIN COATED 81 MG TABLET.EC PO SCH (10:53)
[2020-07-10] MEDS: PRENATAL VITAMINS W/ FOLIC ACID TABLET (FP) PO SCH (10:53)
[2020-07-10] MEDS: FAMOTIDINE 20 MG TABLET PO SCH ×2 (10:53→21:45)
[2020-07-10] MEDS: NICOTINE 7 MG/24 HOURS TOPICAL PATCH TD SCH (10:54)
[2020-07-10] MEDS ORDERED: INSULIN SLIDING SCALE (NOVOLOG) 1 VIAL SQ ONE (11:49)
[2020-07-10] MEDS: ATORVASTATIN CA 10 MG TABLET (FP) PO SCH (21:44)
[2020-07-10] MEDS: THIAMINE HCL 100 MG TABLET (FP) PO SCH (21:44)
[2020-07-10] MEDS: MELATONIN 5 MG TABLETS PO SCH (21:44)
[2020-07-10] MEDS: QUEtiapine FUMARATE 100 MG TABLET (FP) PO SCH (21:45)
[2020-07-10] MEDS: INSULIN (LEVEMIR) 100 UNITS/ML UNITS SQ SCH (21:50)
[2020-07-11] MEDS: LEVOTHYROXINE NA 25 MCG TABLET (FP) PO SCH (06:43)
[2020-07-11] MEDS: INSULIN SLIDING SCALE (NOVOLOG) 1 VIAL SQ SCH ×4 (07:30→21:27)
[2020-07-11] MEDS: metFORMIN HCL 500 MG TABLET (FP) PO SCH ×2 (07:30→21:24)
[2020-07-11] MEDS: PRENATAL VITAMINS W/ FOLIC ACID TABLET (FP) PO SCH (10:39)
[2020-07-11] MEDS: FAMOTIDINE 20 MG TABLET PO SCH ×2 (10:39→21:23)
[2020-07-11] MEDS: ENALAPRIL MALEATE 10 MG TABLET (FP) PO SCH (10:39)
[2020-07-11] MEDS: ASPIRIN COATED 81 MG TABLET.EC PO SCH (10:40)
[2020-07-11] MEDS: LACTULOSE 20 GM/30 ML UDC (FOR ORAL USE ONLY) PO SCH ×4 (10:40→21:21)
[2020-07-11] MEDS: NICOTINE 7 MG/24 HOURS TOPICAL PATCH TD SCH (10:40)
--- NOTE | 2020-07-11 10:45 | PN ---
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 Patient has alcohol dependence and hx of DM. She is currently on Levemir 50 Units SQ HS, Metformin 500mg BID. ROS: patient denies shakes, sweats, headache and anxiety Laboratory Tests 07/01/20 07/01/20 07/01/20 12:15 12:15 12:15 WBC 9.4 RBC 5.18 Hgb 15.6 H Hct 46.2 H D MCV 89.0 MCH 30.0 MCHC 33.7 RDW 15.1 Plt Count 303 MPV 10.0 Sodium 141 Potassium 4.2 Chloride 106 Carbon Dioxide 23 Anion Gap 12 BUN 4.0 L Creatinine 0.8 Est GFR (CKD-EPI)AfAm 88.42 Est GFR (CKD-EPI)NonAf 76.29 POC Glucometer Random Glucose 114 H Calcium 9.2 Total Bilirubin 0.6 AST 36 ALT 30 Alkaline Phosphatase 123 H Ammonia Total Protein 7.4 Albumin 3.4 TSH Syphilis Serology Non-reactive COVID-19 (DAIJA) Hep C Ab Diagnostic HCV RNA PCR w/Genot Rflx Liver Fibrosis Interp 07/01/20 07/01/20 07/01/20 13:55 14:00 16:39 WBC RBC Hgb Hct MCV MCH MCHC RDW Plt Count MPV Sodium Potassium Chloride Carbon Dioxide Anion Gap BUN Creatinine Est GFR (CKD-EPI)AfAm Est GFR (CKD-EPI)NonAf POC Glucometer 131 211 Random Glucose Calcium Total Bilirubin AST ALT Alkaline Phosphatase Ammonia Total Protein Albumin TSH Syphilis Serology COVID-19 (DAIJA) Not detected Hep C Ab Diagnostic HCV RNA PCR w/Genot Rflx Liver Fibrosis Interp 07/01/20 07/02/20 07/02/20 21:08 05:38 11:22 WBC RBC Hgb Hct MCV MCH MCHC RDW Plt Count MPV Sodium Potassium Chloride Carbon Dioxide Anion Gap BUN Creatinine Est GFR (CKD-EPI)AfAm Est GFR (CKD-EPI)NonAf POC Glucometer 88 103 319 Random Glucose Calcium Total Bilirubin AST ALT Alkaline Phosphatase Ammonia Total Protein Albumin TSH Syphilis Serology COVID-19 (DAIJA) Hep C Ab Diagnostic HCV RNA PCR w/Genot Rflx Liver Fibrosis Interp 07/02/20 07/02/20 07/03/20 16:31 20:43 05:39 WBC RBC Hgb Hct MCV MCH MCHC RDW Plt Count MPV Sodium Potassium Chloride Carbon Dioxide Anion Gap BUN Creatinine Est GFR (CKD-EPI)AfAm Est GFR (CKD-EPI)NonAf POC Glucometer [phone] Random Glucose Calcium Total Bilirubin AST ALT Alkaline Phosphatase Ammonia Total Protein Albumin TSH Syphilis Serology COVID-19 (DAIJA) Hep C Ab Diagnostic HCV RNA PCR w/Genot Rflx Liver Fibrosis Interp 07/03/20 07/03/20 07/03/20 10:44 16:40 21:12 WBC RBC Hgb Hct MCV MCH MCHC RDW Plt Count MPV Sodium Potassium Chloride Carbon Dioxide Anion Gap BUN Creatinine Est GFR (CKD-EPI)AfAm Est GFR (CKD-EPI)NonAf POC Glucometer [phone] Random Glucose Calcium Total Bilirubin AST ALT Alkaline Phosphatase Ammonia Total Protein Albumin TSH Syphilis Serology COVID-19 (DAIJA) Hep C Ab Diagnostic HCV RNA PCR w/Genot Rflx Liver Fibrosis Interp 07/04/20 07/04/20 07/04/20 06:05 07:50 08:30 WBC RBC Hgb Hct MCV MCH MCHC RDW Plt Count MPV Sodium Potassium Chloride Carbon Dioxide Anion Gap BUN Creatinine Est GFR (CKD-EPI)AfAm Est GFR (CKD-EPI)NonAf POC Glucometer 276 Random Glucose Calcium Total Bilirubin AST ALT Alkaline Phosphatase Ammonia 71.90 H Total Protein Albumin TSH Syphilis Serology COVID-19 (DAIJA) Hep C Ab Diagnostic 3.1 H HCV RNA PCR w/Genot Rflx Hcv not detected Liver Fibrosis Interp 07/04/20 07/04/20 07/04/20 08:30 11:50 16:28 WBC RBC Hgb Hct MCV MCH MCHC RDW Plt Count MPV Sodium Potassium Chloride Carbon Dioxide Anion Gap BUN Creatinine Est GFR (CKD-EPI)AfAm Est GFR (CKD-EPI)NonAf POC Glucometer 260 239 Random Glucose Calcium Total Bilirubin AST ALT Alkaline Phosphatase Ammonia Total Protein Albumin TSH 2.55 Syphilis Serology COVID-19 (DAIJA) Hep C Ab Diagnostic HCV RNA PCR w/Genot Rflx Liver Fibrosis Interp 07/04/20 07/05/20 07/05/20 20:39 05:40 07:50 WBC RBC Hgb Hct MCV MCH MCHC RDW Plt Count MPV Sodium Potassium Chloride Carbon Dioxide Anion Gap BUN Creatinine Est GFR (CKD-EPI)AfAm Est GFR (CKD-EPI)NonAf POC Glucometer 116 263 Random Glucose Calcium Total Bilirubin AST ALT Alkaline Phosphatase Ammonia 61.10 H Total Protein Albumin TSH Syphilis Serology COVID-19 (DAIJA) Hep C Ab Diagnostic HCV RNA PCR w/Genot Rflx Liver Fibrosis Interp 07/05/20 07/05/20 07/05/20 11:47 16:33 21:27 WBC RBC Hgb Hct MCV MCH MCHC RDW Plt Count MPV Sodium Potassium Chloride Carbon Dioxide Anion Gap BUN Creatinine Est GFR (CKD-EPI)AfAm Est GFR (CKD-EPI)NonAf POC Glucometer [phone] Random Glucose Calcium Total Bilirubin AST ALT Alkaline Phosphatase Ammonia Total Protein Albumin TSH Syphilis Serology COVID-19 (DAIJA) Hep C Ab Diagnostic HCV RNA PCR w/Genot Rflx Liver Fibrosis Interp 07/06/20 07/06/20 07/06/20 06:25 08:10 12:10 WBC RBC Hgb Hct MCV MCH MCHC RDW Plt Count MPV Sodium Potassium Chloride Carbon Dioxide Anion Gap BUN Creatinine Est GFR (CKD-EPI)AfAm Est GFR (CKD-EPI)NonAf POC Glucometer 79 106 Random Glucose Calcium Total Bilirubin AST ALT Alkaline Phosphatase Ammonia 50.90 H Total Protein Albumin TSH Syphilis Serology COVID-19 (DAIJA) Hep C Ab Diagnostic HCV RNA PCR w/Genot Rflx Liver Fibrosis Interp 07/06/20 07/06/20 07/07/20 16:23 21:07 06:28 WBC RBC Hgb Hct MCV MCH MCHC RDW Plt Count MPV Sodium Potassium Chloride Carbon Dioxide Anion Gap BUN Creatinine Est GFR (CKD-EPI)AfAm Est GFR (CKD-EPI)NonAf POC Glucometer 133 275 84 Random Glucose Calcium Total Bilirubin AST ALT Alkaline Phosphatase Ammonia Total Protein Albumin TSH Syphilis Serology COVID-19 (DAIJA) Hep C Ab Diagnostic HCV RNA PCR w/Genot Rflx Liver Fibrosis Interp 07/07/20 07/07/20 07/07/20 11:31 16:17 20:57 WBC RBC Hgb Hct MCV MCH MCHC RDW Plt Count MPV Sodium Potassium Chloride Carbon Dioxide Anion Gap BUN Creatinine Est GFR (CKD-EPI)AfAm Est GFR (CKD-EPI)NonAf POC Glucometer 198 143 289 Random Glucose Calcium Total Bilirubin AST ALT Alkaline Phosphatase Ammonia Total Protein Albumin TSH Syphilis Serology COVID-19 (DAIJA) Hep C Ab Diagnostic HCV RNA PCR w/Genot Rflx Liver Fibrosis Interp 07/08/20 07/08/20 07/08/20 06:01 08:00 11:45 WBC RBC Hgb Hct MCV MCH MCHC RDW Plt Count MPV Sodium Potassium Chloride Carbon Dioxide Anion Gap BUN Creatinine Est GFR (CKD-EPI)AfAm Est GFR (CKD-EPI)NonAf POC Glucometer 119 94 Random Glucose Calcium Total Bilirubin AST ALT Alkaline Phosphatase Ammonia 74.40 H Total Protein Albumin TSH Syphilis Serology COVID-19 (DAIJA) Hep C Ab Diagnostic HCV RNA PCR w/Genot Rflx Liver Fibrosis Interp 07/08/20 07/08/20 07/09/20 16:54 22:04 06:19 WBC RBC Hgb Hct MCV MCH MCHC RDW Plt Count MPV Sodium Potassium Chloride Carbon Dioxide Anion Gap BUN Creatinine Est GFR (CKD-EPI)AfAm Est GFR (CKD-EPI)NonAf POC Glucometer 100 216 61 Random Glucose Calcium Total Bilirubin AST ALT Alkaline Phosphatase Ammonia Total Protein Albumin TSH Syphilis Serology COVID-19 (DAIJA) Hep C Ab Diagnostic HCV RNA PCR w/Genot Rflx Liver Fibrosis Interp 07/09/20 07/09/20 07/09/20 11:50 16:52 21:02 WBC RBC Hgb Hct MCV MCH MCHC RDW Plt Count MPV Sodium Potassium Chloride Carbon Dioxide Anion Gap BUN Creatinine Est GFR (CKD-EPI)AfAm Est GFR (CKD-EPI)NonAf POC Glucometer 243 114 255 Random Glucose Calcium Total Bilirubin AST ALT Alkaline Phosphatase Ammonia Total Protein Albumin TSH Syphilis Serology COVID-19 (DAIJA) Hep C Ab Diagnostic HCV RNA PCR w/Genot Rflx Liver Fibrosis Interp 07/10/20 07/10/20 07/10/20 05:14 11:46 16:46 WBC RBC Hgb Hct MCV MCH MCHC RDW Plt Count MPV Sodium Potassium Chloride Carbon Dioxide Anion Gap BUN Creatinine Est GFR (CKD-EPI)AfAm Est GFR (CKD-EPI)NonAf POC Glucometer 57 190 92 Random Glucose Calcium Total Bilirubin AST ALT Alkaline Phosphatase Ammonia Total Protein Albumin TSH Syphilis Serology COVID-19 (DAIJA) Hep C Ab Diagnostic HCV RNA PCR w/Genot Rflx Liver Fibrosis Interp 07/10/20 07/11/20 07/11/20 21:48 06:09 07:17 WBC RBC Hgb Hct MCV MCH MCHC RDW Plt Count MPV Sodium Potassium Chloride Carbon Dioxide Anion Gap BUN Creatinine Est GFR (CKD-EPI)AfAm Est GFR (CKD-EPI)NonAf POC Glucometer 289 57 92 Random Glucose Calcium Total Bilirubin AST ALT Alkaline Phosphatase Ammonia Total Protein Albumin TSH Syphilis Serology COVID-19 (DAIJA) Hep C Ab Diagnostic HCV RNA PCR w/Genot Rflx Liver Fibrosis Interp Vital Signs Temperature 96.9 F L 07/11/20 05:53 Pulse Rate 91 H 07/11/20 05:53 Respiratory Rate 18 07/11/20 05:53 Blood Pressure 125/71 07/11/20 05:53 O2 Sat by Pulse Oximetry (%) 97 07/11/20 05:53 PE alert and oriented x 3 skin warm and dry ext no visible tremors exam limited as patient sleeping and uncooperative with exam A/P DM Hypoglycemic episodes in the morning Will reduce Levemir to 40 u sq hs continue metformin NCS diet maintained continue to monitor clinically
[2020-07-11] MEDS ORDERED: INSULIN SLIDING SCALE (NOVOLOG) 1 VIAL SQ ONE ×2 (12:04→22:19)
[2020-07-11] MEDS: THIAMINE HCL 100 MG TABLET (FP) PO SCH (21:18)
[2020-07-11] MEDS: QUEtiapine FUMARATE 100 MG TABLET (FP) PO SCH (21:23)
[2020-07-11] MEDS: ATORVASTATIN CA 10 MG TABLET (FP) PO SCH (21:24)
[2020-07-11] MEDS: INSULIN (LEVEMIR) 100 UNITS/ML UNITS SQ SCH (21:24)
[2020-07-11] MEDS: MELATONIN 5 MG TABLETS PO SCH (21:24)
[2020-07-12] MEDS: LEVOTHYROXINE NA 25 MCG TABLET (FP) PO SCH (06:50)
[2020-07-12] MEDS: INSULIN SLIDING SCALE (NOVOLOG) 1 VIAL SQ SCH ×4 (07:08→21:58)
[2020-07-12] MEDS: metFORMIN HCL 500 MG TABLET (FP) PO SCH ×2 (07:08→22:01)
[2020-07-12] MEDS: ENALAPRIL MALEATE 10 MG TABLET (FP) PO SCH (10:08)
[2020-07-12] MEDS: NICOTINE 7 MG/24 HOURS TOPICAL PATCH TD SCH (10:08)
[2020-07-12] MEDS: PRENATAL VITAMINS W/ FOLIC ACID TABLET (FP) PO SCH (10:08)
[2020-07-12] MEDS: ASPIRIN COATED 81 MG TABLET.EC PO SCH (10:08)
[2020-07-12] MEDS: FAMOTIDINE 20 MG TABLET PO SCH ×2 (10:08→22:01)
[2020-07-12] MEDS: LACTULOSE 20 GM/30 ML UDC (FOR ORAL USE ONLY) PO SCH ×4 (10:08→22:01)
[2020-07-12] MEDS ORDERED: INSULIN SLIDING SCALE (NOVOLOG) 1 VIAL SQ ONE ×3 (12:06→22:20)
[2020-07-12] MEDS ORDERED: PT OWN MED DRAWER 7, Y5N ONE (18:57)
[2020-07-12] MEDS: INSULIN (LEVEMIR) 100 UNITS/ML UNITS SQ SCH (21:59)
[2020-07-12] MEDS: ATORVASTATIN CA 10 MG TABLET (FP) PO SCH (22:01)
[2020-07-12] MEDS: THIAMINE HCL 100 MG TABLET (FP) PO SCH (22:01)
[2020-07-12] MEDS: QUEtiapine FUMARATE 100 MG TABLET (FP) PO SCH (22:01)
[2020-07-12] MEDS: MELATONIN 5 MG TABLETS PO SCH (22:02)
[2020-07-12] MEDS ORDERED: INSULIN (LEVEMIR) 100 UNITS/ML UNITS SQ ONE (22:20)
[2020-07-13] MEDS: LEVOTHYROXINE NA 25 MCG TABLET (FP) PO SCH (06:15)
[2020-07-13] MEDS: metFORMIN HCL 500 MG TABLET (FP) PO SCH ×2 (07:07→21:25)
[2020-07-13] MEDS: INSULIN SLIDING SCALE (NOVOLOG) 1 VIAL SQ SCH ×4 (07:07→21:20)
--- NOTE | 2020-07-13 09:26 | PN ---
[facility] Progress Note Note: patient with low fingersticks in AM. asymptomatic. Adjusted insulin sliding scale and reduced levimir. Will continue to monitor. CBC, BMP 07/01/20 12:15 07/01/20 12:15 Laboratory Last Values WBC 9.4 K/mm3 (4.0-10.0) 07/01/20 12:15 RBC 5.18 M/mm3 (3.60-5.2) 07/01/20 12:15 Hgb 15.6 GM/dL (10.7-15.3) H 07/01/20 12:15 Hct 46.2 % (32.4-45.2) H D 07/01/20 12:15 MCV 89.0 fl (80-96) 07/01/20 12:15 MCH 30.0 pg (25.7-33.7) 07/01/20 12:15 MCHC 33.7 g/dl (32.0-36.0) 07/01/20 12:15 RDW 15.1 % (11.6-15.6) 07/01/20 12:15 Plt Count 303 K/MM3 (134-434) 07/01/20 12:15 MPV 10.0 fl (7.5-11.1) 07/01/20 12:15 Sodium 141 mmol/L (136-145) 07/01/20 12:15 Potassium 4.2 mmol/L (3.5-5.1) 07/01/20 12:15 Chloride 106 mmol/L (98-107) 07/01/20 12:15 Carbon Dioxide 23 mmol/L (21-32) 07/01/20 12:15 Anion Gap 12 MMOL/L (8-16) 07/01/20 12:15 BUN 4.0 mg/dL (7-18) L 07/01/20 12:15 Creatinine 0.8 mg/dL (0.55-1.3) 07/01/20 12:15 Est GFR (CKD-EPI)AfAm 88.42 07/01/20 12:15 Est GFR (CKD-EPI)NonAf 76.29 07/01/20 12:15 POC Glucometer 62 UNITS (80-120) 07/13/20 06:15 Random Glucose 114 mg/dL (74-106) H 07/01/20 12:15 Calcium 9.2 mg/dL (8.5-10.1) 07/01/20 12:15 Total Bilirubin 0.6 mg/dL (0.2-1) 07/01/20 12:15 AST 36 U/L (15-37) 07/01/20 12:15 ALT 30 U/L (13-61) 07/01/20 12:15 Alkaline Phosphatase 123 U/L (45-117) H 07/01/20 12:15 Ammonia 63.70 umol/L (11-32) H 07/11/20 08:30 Total Protein 7.4 g/dl (6.4-8.2) 07/01/20 12:15 Albumin 3.4 g/dl (3.4-5.0) 07/01/20 12:15 TSH 2.55 uIU/ml (0.358-3.74) 07/04/20 08:30 Syphilis Serology Non-reactive (NONREACTIVE) 07/01/20 12:15 COVID-19 (DAIJA) Not detected (Not Detected) 07/01/20 14:00 Hep C Ab Diagnostic 3.1 s/co ratio (0.0-0.9) H 07/04/20 07:50 HCV RNA PCR w/Genot Rflx Hcv not detected IU/mL (.) 07/04/20 07:50 Liver Fibrosis Interp (.) 07/04/20 07:50
[2020-07-13] MEDS: PRENATAL VITAMINS W/ FOLIC ACID TABLET (FP) PO SCH (10:36)
[2020-07-13] MEDS: NICOTINE 7 MG/24 HOURS TOPICAL PATCH TD SCH (10:36)
[2020-07-13] MEDS: ENALAPRIL MALEATE 10 MG TABLET (FP) PO SCH (10:37)
[2020-07-13] MEDS: ASPIRIN COATED 81 MG TABLET.EC PO SCH (10:37)
[2020-07-13] MEDS: LACTULOSE 20 GM/30 ML UDC (FOR ORAL USE ONLY) PO SCH ×4 (10:37→21:24)
[2020-07-13] MEDS: FAMOTIDINE 20 MG TABLET PO SCH ×2 (10:37→21:25)
[2020-07-13] MEDS ORDERED: INSULIN SLIDING SCALE (NOVOLOG) 1 VIAL SQ ONE (12:00)
[2020-07-13] MEDS ORDERED: INSULIN (LEVEMIR) 100 UNITS/ML UNITS SQ ONE (18:50)
[2020-07-13] MEDS: INSULIN (LEVEMIR) 100 UNITS/ML UNITS SQ SCH (21:22)
[2020-07-13] MEDS: THIAMINE HCL 100 MG TABLET (FP) PO SCH (21:25)
[2020-07-13] MEDS: MELATONIN 5 MG TABLETS PO SCH (21:25)
[2020-07-13] MEDS: QUEtiapine FUMARATE 100 MG TABLET (FP) PO SCH (21:25)
[2020-07-13] MEDS: ATORVASTATIN CA 10 MG TABLET (FP) PO SCH (21:25)
[2020-07-14] MEDS: LEVOTHYROXINE NA 25 MCG TABLET (FP) PO SCH (06:16)
[2020-07-14] MEDS: metFORMIN HCL 500 MG TABLET (FP) PO SCH ×2 (06:59→21:16)
[2020-07-14] MEDS: INSULIN SLIDING SCALE (NOVOLOG) 1 VIAL SQ SCH ×4 (07:00→21:47)
[2020-07-14] MEDS: ASPIRIN COATED 81 MG TABLET.EC PO SCH (10:21)
[2020-07-14] MEDS: LACTULOSE 20 GM/30 ML UDC (FOR ORAL USE ONLY) PO SCH ×4 (10:21→21:16)
[2020-07-14] MEDS: PRENATAL VITAMINS W/ FOLIC ACID TABLET (FP) PO SCH (10:21)
[2020-07-14] MEDS: ENALAPRIL MALEATE 10 MG TABLET (FP) PO SCH (10:21)
[2020-07-14] MEDS: FAMOTIDINE 20 MG TABLET PO SCH ×2 (10:22→21:17)
[2020-07-14] MEDS: NICOTINE 7 MG/24 HOURS TOPICAL PATCH TD SCH (10:22)
[2020-07-14] MEDS ORDERED: INSULIN SLIDING SCALE (NOVOLOG) 1 VIAL SQ ONE (12:05)
[2020-07-14] MEDS: MELATONIN 5 MG TABLETS PO SCH (21:17)
[2020-07-14] MEDS: THIAMINE HCL 100 MG TABLET (FP) PO SCH (21:17)
[2020-07-14] MEDS: ATORVASTATIN CA 10 MG TABLET (FP) PO SCH (21:17)
[2020-07-14] MEDS: QUEtiapine FUMARATE 100 MG TABLET (FP) PO SCH (21:17)
[2020-07-14] MEDS ORDERED: INSULIN (NOVOLOG) ASPART 100 UNITS/ML 10ML VIAL ONE (21:45)
[2020-07-14] MEDS: INSULIN (LEVEMIR) 100 UNITS/ML UNITS SQ SCH (21:46)
[2020-07-15] MEDS ORDERED: PT OWN MED DRAWER 7, Y5N ONE ×3 (06:00→15:30)
[2020-07-15] MEDS: metFORMIN HCL 500 MG TABLET (FP) PO SCH ×2 (06:31→21:11)
[2020-07-15] MEDS: INSULIN SLIDING SCALE (NOVOLOG) 1 VIAL SQ SCH ×4 (06:31→21:07)
[2020-07-15] MEDS: LEVOTHYROXINE NA 25 MCG TABLET (FP) PO SCH (07:22)
[2020-07-15] MEDS: LACTULOSE 20 GM/30 ML UDC (FOR ORAL USE ONLY) PO SCH ×4 (09:43→21:11)
[2020-07-15] MEDS: NICOTINE 7 MG/24 HOURS TOPICAL PATCH TD SCH (09:43)
[2020-07-15] MEDS: PRENATAL VITAMINS W/ FOLIC ACID TABLET (FP) PO SCH (09:47)
[2020-07-15] MEDS: FAMOTIDINE 20 MG TABLET PO SCH ×2 (09:47→21:12)
[2020-07-15] MEDS: ENALAPRIL MALEATE 10 MG TABLET (FP) PO SCH (10:33)
[2020-07-15] MEDS: ASPIRIN COATED 81 MG TABLET.EC PO SCH (10:33)
[2020-07-15] MEDS ORDERED: INSULIN (NOVOLOG) ASPART 100 UNITS/ML 10ML VIAL ONE ×2 (12:12→21:09)
[2020-07-15] MEDS: INSULIN (LEVEMIR) 100 UNITS/ML UNITS SQ SCH (21:09)
[2020-07-15] MEDS: MELATONIN 5 MG TABLETS PO SCH (21:11)
[2020-07-15] MEDS: QUEtiapine FUMARATE 100 MG TABLET (FP) PO SCH (21:12)
[2020-07-15] MEDS: ATORVASTATIN CA 10 MG TABLET (FP) PO SCH (21:12)
[2020-07-15] MEDS: THIAMINE HCL 100 MG TABLET (FP) PO SCH (21:12)
[2020-07-16] MEDS ORDERED: PT OWN MED DRAWER 7, Y5N ONE ×2 (03:27→08:18)
[2020-07-16] MEDS: LEVOTHYROXINE NA 25 MCG TABLET (FP) PO SCH (06:26)
[2020-07-16] MEDS: metFORMIN HCL 500 MG TABLET (FP) PO SCH ×2 (06:26→21:07)
[2020-07-16] MEDS: INSULIN SLIDING SCALE (NOVOLOG) 1 VIAL SQ SCH ×4 (06:26→21:01)
[2020-07-16] MEDS: ASPIRIN COATED 81 MG TABLET.EC PO SCH (09:32)
[2020-07-16] MEDS: ENALAPRIL MALEATE 10 MG TABLET (FP) PO SCH (09:32)
[2020-07-16] MEDS: NICOTINE 7 MG/24 HOURS TOPICAL PATCH TD SCH (09:32)
[2020-07-16] MEDS: FAMOTIDINE 20 MG TABLET PO SCH ×2 (09:33→21:07)
[2020-07-16] MEDS: PRENATAL VITAMINS W/ FOLIC ACID TABLET (FP) PO SCH (09:33)
[2020-07-16] MEDS: LACTULOSE 20 GM/30 ML UDC (FOR ORAL USE ONLY) PO SCH ×4 (09:33→21:09)
[2020-07-16] MEDS ORDERED: INSULIN (NOVOLOG) ASPART 100 UNITS/ML 10ML VIAL ONE ×2 (11:29→21:03)
[2020-07-16] MEDS: INSULIN (LEVEMIR) 100 UNITS/ML UNITS SQ SCH (21:05)
[2020-07-16] MEDS: MELATONIN 5 MG TABLETS PO SCH (21:06)
[2020-07-16] MEDS: ATORVASTATIN CA 10 MG TABLET (FP) PO SCH (21:06)
[2020-07-16] MEDS: THIAMINE HCL 100 MG TABLET (FP) PO SCH (21:07)
[2020-07-16] MEDS: QUEtiapine FUMARATE 100 MG TABLET (FP) PO SCH (21:07)
[2020-07-17] MEDS ORDERED: PT OWN MED DRAWER 7, Y5N ONE ×2 (03:08→08:48)
[2020-07-17] MEDS: metFORMIN HCL 500 MG TABLET (FP) PO SCH ×2 (06:20→21:03)
[2020-07-17] MEDS: LEVOTHYROXINE NA 25 MCG TABLET (FP) PO SCH (06:20)
[2020-07-17] MEDS: INSULIN SLIDING SCALE (NOVOLOG) 1 VIAL SQ SCH ×4 (06:21→21:05)
[2020-07-17] MEDS: ASPIRIN COATED 81 MG TABLET.EC PO SCH (09:54)
[2020-07-17] MEDS: NICOTINE 7 MG/24 HOURS TOPICAL PATCH TD SCH (09:54)
[2020-07-17] MEDS: LACTULOSE 20 GM/30 ML UDC (FOR ORAL USE ONLY) PO SCH ×4 (09:54→21:03)
[2020-07-17] MEDS: ENALAPRIL MALEATE 10 MG TABLET (FP) PO SCH (09:54)
[2020-07-17] MEDS: PRENATAL VITAMINS W/ FOLIC ACID TABLET (FP) PO SCH (09:54)
[2020-07-17] MEDS: FAMOTIDINE 20 MG TABLET PO SCH ×2 (09:55→21:07)
[2020-07-17] MEDS ORDERED: INSULIN (NOVOLOG) ASPART 100 UNITS/ML 10ML VIAL ONE ×2 (11:56→21:25)
[2020-07-17] MEDS: QUEtiapine FUMARATE 100 MG TABLET (FP) PO SCH (21:04)
[2020-07-17] MEDS: INSULIN (LEVEMIR) 100 UNITS/ML UNITS SQ SCH (21:04)
[2020-07-17] MEDS: THIAMINE HCL 100 MG TABLET (FP) PO SCH (21:04)
[2020-07-17] MEDS: ATORVASTATIN CA 10 MG TABLET (FP) PO SCH (21:05)
[2020-07-17] MEDS: MELATONIN 5 MG TABLETS PO SCH (21:06)
[2020-07-18] MEDS: metFORMIN HCL 500 MG TABLET (FP) PO SCH ×2 (06:27→21:01)
[2020-07-18] MEDS: INSULIN SLIDING SCALE (NOVOLOG) 1 VIAL SQ SCH ×4 (06:27→21:08)
[2020-07-18] MEDS: LEVOTHYROXINE NA 25 MCG TABLET (FP) PO SCH (06:27)
[2020-07-18] MEDS: FAMOTIDINE 20 MG TABLET PO SCH ×2 (09:34→21:08)
[2020-07-18] MEDS: PRENATAL VITAMINS W/ FOLIC ACID TABLET (FP) PO SCH (09:34)
[2020-07-18] MEDS: NICOTINE 7 MG/24 HOURS TOPICAL PATCH TD SCH (09:34)
[2020-07-18] MEDS: LACTULOSE 20 GM/30 ML UDC (FOR ORAL USE ONLY) PO SCH ×4 (09:34→21:01)
[2020-07-18] MEDS: ASPIRIN COATED 81 MG TABLET.EC PO SCH (09:35)
[2020-07-18] MEDS: ENALAPRIL MALEATE 10 MG TABLET (FP) PO SCH (09:35)
--- NOTE | 2020-07-18 11:40 | PN ---
[facility] Progress Note Note: Lab review for ammonia Laboratory Last Values WBC 9.4 K/mm3 (4.0-10.0) 07/01/20 12:15 RBC 5.18 M/mm3 (3.60-5.2) 07/01/20 12:15 Hgb 15.6 GM/dL (10.7-15.3) H 07/01/20 12:15 Hct 46.2 % (32.4-45.2) H D 07/01/20 12:15 MCV 89.0 fl (80-96) 07/01/20 12:15 MCH 30.0 pg (25.7-33.7) 07/01/20 12:15 MCHC 33.7 g/dl (32.0-36.0) 07/01/20 12:15 RDW 15.1 % (11.6-15.6) 07/01/20 12:15 Plt Count 303 K/MM3 (134-434) 07/01/20 12:15 MPV 10.0 fl (7.5-11.1) 07/01/20 12:15 Sodium 141 mmol/L (136-145) 07/01/20 12:15 Potassium 4.2 mmol/L (3.5-5.1) 07/01/20 12:15 Chloride 106 mmol/L (98-107) 07/01/20 12:15 Carbon Dioxide 23 mmol/L (21-32) 07/01/20 12:15 Anion Gap 12 MMOL/L (8-16) 07/01/20 12:15 BUN 4.0 mg/dL (7-18) L 07/01/20 12:15 Creatinine 0.8 mg/dL (0.55-1.3) 07/01/20 12:15 Est GFR (CKD-EPI)AfAm 88.42 07/01/20 12:15 Est GFR (CKD-EPI)NonAf 76.29 07/01/20 12:15 POC Glucometer 81 UNITS (80-120) 07/18/20 06:26 Random Glucose 114 mg/dL (74-106) H 07/01/20 12:15 Calcium 9.2 mg/dL (8.5-10.1) 07/01/20 12:15 Total Bilirubin 0.6 mg/dL (0.2-1) 07/01/20 12:15 AST 36 U/L (15-37) 07/01/20 12:15 ALT 30 U/L (13-61) 07/01/20 12:15 Alkaline Phosphatase 123 U/L (45-117) H 07/01/20 12:15 Ammonia 63.70 umol/L (11-32) H 07/11/20 08:30 Total Protein 7.4 g/dl (6.4-8.2) 07/01/20 12:15 Albumin 3.4 g/dl (3.4-5.0) 07/01/20 12:15 TSH 2.55 uIU/ml (0.358-3.74) 07/04/20 08:30 Syphilis Serology Non-reactive (NONREACTIVE) 07/01/20 12:15 COVID-19 (DAIJA) Not detected (Not Detected) 07/14/20 17:51 Hep C Ab Diagnostic 3.1 s/co ratio (0.0-0.9) H 07/04/20 07:50 HCV RNA PCR w/Genot Rflx Hcv not detected IU/mL (.) 07/04/20 07:50 Liver Fibrosis Interp (.) 07/04/20 07:50 Ammonia 63.70 on 07/11/20 Repeat Ammonia level today
[2020-07-18] MEDS: MELATONIN 5 MG TABLETS PO SCH (21:00)
[2020-07-18] MEDS: ATORVASTATIN CA 10 MG TABLET (FP) PO SCH (21:00)
[2020-07-18] MEDS ORDERED: PT OWN MED DRAWER 7, Y5N ONE (21:01)
[2020-07-18] MEDS: QUEtiapine FUMARATE 100 MG TABLET (FP) PO SCH (21:02)
[2020-07-18] MEDS: THIAMINE HCL 100 MG TABLET (FP) PO SCH (21:03)
[2020-07-18] MEDS: INSULIN (LEVEMIR) 100 UNITS/ML UNITS SQ SCH (21:08)
[2020-07-19] MEDS ORDERED: PT OWN MED DRAWER 7, Y5N ONE ×3 (04:02→10:05)
[2020-07-19] MEDS: INSULIN SLIDING SCALE (NOVOLOG) 1 VIAL SQ SCH ×4 (06:07→21:12)
[2020-07-19] MEDS: LEVOTHYROXINE NA 25 MCG TABLET (FP) PO SCH (06:07)
[2020-07-19] MEDS: metFORMIN HCL 500 MG TABLET (FP) PO SCH ×2 (06:07→21:10)
[2020-07-19] MEDS: NICOTINE 7 MG/24 HOURS TOPICAL PATCH TD SCH (09:29)
[2020-07-19] MEDS: ENALAPRIL MALEATE 10 MG TABLET (FP) PO SCH (09:29)
[2020-07-19] MEDS: FAMOTIDINE 20 MG TABLET PO SCH ×2 (09:29→21:12)
[2020-07-19] MEDS: LACTULOSE 20 GM/30 ML UDC (FOR ORAL USE ONLY) PO SCH ×4 (09:29→21:10)
[2020-07-19] MEDS: PRENATAL VITAMINS W/ FOLIC ACID TABLET (FP) PO SCH (09:30)
[2020-07-19] MEDS: ASPIRIN COATED 81 MG TABLET.EC PO SCH (09:30)
[2020-07-19] MEDS ORDERED: INSULIN (NOVOLOG) ASPART 100 UNITS/ML 10ML VIAL ONE (21:09)
[2020-07-19] MEDS: QUEtiapine FUMARATE 100 MG TABLET (FP) PO SCH (21:10)
[2020-07-19] MEDS: THIAMINE HCL 100 MG TABLET (FP) PO SCH (21:10)
[2020-07-19] MEDS: MELATONIN 5 MG TABLETS PO SCH (21:10)
[2020-07-19] MEDS: ATORVASTATIN CA 10 MG TABLET (FP) PO SCH (21:10)
[2020-07-19] MEDS: INSULIN (LEVEMIR) 100 UNITS/ML UNITS SQ SCH (21:11)
[2020-07-20] MEDS ORDERED: PT OWN MED DRAWER 7, Y5N ONE ×2 (03:19→08:40)
[2020-07-20] MEDS: metFORMIN HCL 500 MG TABLET (FP) PO SCH ×2 (06:37→21:08)
[2020-07-20] MEDS: INSULIN SLIDING SCALE (NOVOLOG) 1 VIAL SQ SCH ×4 (06:37→21:04)
[2020-07-20] MEDS: LEVOTHYROXINE NA 25 MCG TABLET (FP) PO SCH (06:38)
[2020-07-20] MEDS: ASPIRIN COATED 81 MG TABLET.EC PO SCH (09:20)
[2020-07-20] MEDS: LACTULOSE 20 GM/30 ML UDC (FOR ORAL USE ONLY) PO SCH ×4 (09:20→21:07)
[2020-07-20] MEDS: PRENATAL VITAMINS W/ FOLIC ACID TABLET (FP) PO SCH (09:20)
[2020-07-20] MEDS: ENALAPRIL MALEATE 10 MG TABLET (FP) PO SCH (09:20)
[2020-07-20] MEDS: NICOTINE 7 MG/24 HOURS TOPICAL PATCH TD SCH (09:21)
[2020-07-20] MEDS: FAMOTIDINE 20 MG TABLET PO SCH ×2 (09:21→21:07)
[2020-07-20] MEDS ORDERED: INSULIN (NOVOLOG) ASPART 100 UNITS/ML 10ML VIAL ONE ×2 (11:37→21:05)
[2020-07-20] MEDS: INSULIN (LEVEMIR) 100 UNITS/ML UNITS SQ SCH (21:06)
[2020-07-20] MEDS: ATORVASTATIN CA 10 MG TABLET (FP) PO SCH (21:07)
[2020-07-20] MEDS: QUEtiapine FUMARATE 100 MG TABLET (FP) PO SCH (21:07)
[2020-07-20] MEDS: THIAMINE HCL 100 MG TABLET (FP) PO SCH (21:07)
[2020-07-20] MEDS: MELATONIN 5 MG TABLETS PO SCH (21:08)
[2020-07-21] MEDS ORDERED: PT OWN MED DRAWER 7, Y5N ONE ×2 (03:11→08:41)
[2020-07-21] MEDS: INSULIN SLIDING SCALE (NOVOLOG) 1 VIAL SQ SCH ×4 (06:38→21:11)
[2020-07-21] MEDS: metFORMIN HCL 500 MG TABLET (FP) PO SCH ×2 (06:44→21:10)
[2020-07-21] MEDS: LEVOTHYROXINE NA 25 MCG TABLET (FP) PO SCH (06:44)
[2020-07-21] MEDS: LACTULOSE 20 GM/30 ML UDC (FOR ORAL USE ONLY) PO SCH ×4 (09:33→21:10)
[2020-07-21] MEDS: ASPIRIN COATED 81 MG TABLET.EC PO SCH (09:33)
[2020-07-21] MEDS: FAMOTIDINE 20 MG TABLET PO SCH ×2 (09:33→21:10)
[2020-07-21] MEDS: NICOTINE 7 MG/24 HOURS TOPICAL PATCH TD SCH (09:33)
[2020-07-21] MEDS: ENALAPRIL MALEATE 10 MG TABLET (FP) PO SCH (09:33)
[2020-07-21] MEDS: PRENATAL VITAMINS W/ FOLIC ACID TABLET (FP) PO SCH (09:34)
[2020-07-21] MEDS: MAGNESIUM HYDROX 2400MG/30ML ORAL SUSPENSION 30 ML CUP PO PRN (15:32)
[2020-07-21] MEDS: THIAMINE HCL 100 MG TABLET (FP) PO SCH (21:10)
[2020-07-21] MEDS: ATORVASTATIN CA 10 MG TABLET (FP) PO SCH (21:10)
[2020-07-21] MEDS: QUEtiapine FUMARATE 100 MG TABLET (FP) PO SCH (21:10)
[2020-07-21] MEDS: INSULIN (LEVEMIR) 100 UNITS/ML UNITS SQ SCH (21:12)
[2020-07-21] MEDS: MELATONIN 5 MG TABLETS PO SCH (21:15)
[2020-07-22] MEDS ORDERED: PT OWN MED DRAWER 7, Y5N ONE ×3 (03:22→12:59)
[2020-07-22] MEDS: metFORMIN HCL 500 MG TABLET (FP) PO SCH ×2 (06:30→21:01)
[2020-07-22] MEDS: LEVOTHYROXINE NA 25 MCG TABLET (FP) PO SCH (06:30)
[2020-07-22] MEDS: INSULIN SLIDING SCALE (NOVOLOG) 1 VIAL SQ SCH ×4 (06:30→21:05)
[2020-07-22] MEDS: NICOTINE 7 MG/24 HOURS TOPICAL PATCH TD SCH (09:28)
[2020-07-22] MEDS: LACTULOSE 20 GM/30 ML UDC (FOR ORAL USE ONLY) PO SCH ×4 (09:28→21:01)
[2020-07-22] MEDS: ENALAPRIL MALEATE 10 MG TABLET (FP) PO SCH (09:28)
[2020-07-22] MEDS: ASPIRIN COATED 81 MG TABLET.EC PO SCH (09:28)
[2020-07-22] MEDS: PRENATAL VITAMINS W/ FOLIC ACID TABLET (FP) PO SCH (09:28)
[2020-07-22] MEDS: FAMOTIDINE 20 MG TABLET PO SCH ×2 (09:29→21:04)
[2020-07-22] MEDS ORDERED: INSULIN (NOVOLOG) ASPART 100 UNITS/ML 10ML VIAL ONE (11:50)
[2020-07-22] MEDS: INSULIN (LEVEMIR) 100 UNITS/ML UNITS SQ SCH (21:02)
[2020-07-22] MEDS: MELATONIN 5 MG TABLETS PO SCH (21:03)
[2020-07-22] MEDS: ATORVASTATIN CA 10 MG TABLET (FP) PO SCH (21:03)
[2020-07-22] MEDS: THIAMINE HCL 100 MG TABLET (FP) PO SCH (21:03)
[2020-07-22] MEDS: QUEtiapine FUMARATE 100 MG TABLET (FP) PO SCH (21:04)
[2020-07-23] MEDS ORDERED: PT OWN MED DRAWER 7, Y5N ONE ×2 (05:49→08:48)
[2020-07-23] MEDS: metFORMIN HCL 500 MG TABLET (FP) PO SCH ×2 (06:36→21:04)
[2020-07-23] MEDS: LEVOTHYROXINE NA 25 MCG TABLET (FP) PO SCH (06:36)
[2020-07-23] MEDS: INSULIN SLIDING SCALE (NOVOLOG) 1 VIAL SQ SCH ×4 (06:37→20:59)
[2020-07-23] MEDS: PRENATAL VITAMINS W/ FOLIC ACID TABLET (FP) PO SCH (09:43)
[2020-07-23] MEDS: LACTULOSE 20 GM/30 ML UDC (FOR ORAL USE ONLY) PO SCH ×4 (09:43→21:04)
[2020-07-23] MEDS: FAMOTIDINE 20 MG TABLET PO SCH ×2 (09:43→21:04)
[2020-07-23] MEDS: ASPIRIN COATED 81 MG TABLET.EC PO SCH (09:44)
[2020-07-23] MEDS: ENALAPRIL MALEATE 10 MG TABLET (FP) PO SCH (09:44)
[2020-07-23] MEDS: NICOTINE 7 MG/24 HOURS TOPICAL PATCH TD SCH (09:44)
[2020-07-23] MEDS ORDERED: INSULIN (NOVOLOG) ASPART 100 UNITS/ML 10ML VIAL ONE ×2 (11:47→21:01)
[2020-07-23] MEDS: INSULIN (LEVEMIR) 100 UNITS/ML UNITS SQ SCH (21:03)
[2020-07-23] MEDS: THIAMINE HCL 100 MG TABLET (FP) PO SCH (21:04)
[2020-07-23] MEDS: ATORVASTATIN CA 10 MG TABLET (FP) PO SCH (21:04)
[2020-07-23] MEDS: QUEtiapine FUMARATE 100 MG TABLET (FP) PO SCH (21:04)
[2020-07-23] MEDS: MELATONIN 5 MG TABLETS PO SCH (21:04)
[2020-07-24] MEDS ORDERED: PT OWN MED DRAWER 7, Y5N ONE (05:42)
[2020-07-24] MEDS: LEVOTHYROXINE NA 25 MCG TABLET (FP) PO SCH (06:01)
[2020-07-24] MEDS: metFORMIN HCL 500 MG TABLET (FP) PO SCH ×2 (06:01→21:03)
[2020-07-24] MEDS: INSULIN SLIDING SCALE (NOVOLOG) 1 VIAL SQ SCH ×4 (06:02→21:01)
[2020-07-24] MEDS: NICOTINE 7 MG/24 HOURS TOPICAL PATCH TD SCH (09:33)
[2020-07-24] MEDS: PRENATAL VITAMINS W/ FOLIC ACID TABLET (FP) PO SCH (09:34)
[2020-07-24] MEDS: LACTULOSE 20 GM/30 ML UDC (FOR ORAL USE ONLY) PO SCH ×4 (09:34→21:02)
[2020-07-24] MEDS: ASPIRIN COATED 81 MG TABLET.EC PO SCH (09:34)
[2020-07-24] MEDS: ENALAPRIL MALEATE 10 MG TABLET (FP) PO SCH (09:34)
[2020-07-24] MEDS: FAMOTIDINE 20 MG TABLET PO SCH ×2 (09:35→21:03)
[2020-07-24] MEDS: MAGNESIUM HYDROX 2400MG/30ML ORAL SUSPENSION 30 ML CUP PO PRN (14:18)
[2020-07-24] MEDS ORDERED: INSULIN (NOVOLOG) ASPART 100 UNITS/ML 10ML VIAL ONE (20:59)
[2020-07-24] MEDS: INSULIN (LEVEMIR) 100 UNITS/ML UNITS SQ SCH (21:01)
[2020-07-24] MEDS: QUEtiapine FUMARATE 100 MG TABLET (FP) PO SCH (21:02)
[2020-07-24] MEDS: THIAMINE HCL 100 MG TABLET (FP) PO SCH (21:02)
[2020-07-24] MEDS: MELATONIN 5 MG TABLETS PO SCH (21:03)
[2020-07-24] MEDS: ATORVASTATIN CA 10 MG TABLET (FP) PO SCH (21:03)
[2020-07-25] MEDS ORDERED: PT OWN MED DRAWER 7, Y5N ONE ×2 (06:05→08:21)
[2020-07-25] MEDS: metFORMIN HCL 500 MG TABLET (FP) PO SCH ×2 (06:25→21:17)
[2020-07-25] MEDS: LEVOTHYROXINE NA 25 MCG TABLET (FP) PO SCH (06:25)
[2020-07-25] MEDS: INSULIN SLIDING SCALE (NOVOLOG) 1 VIAL SQ SCH ×4 (06:27→21:18)
[2020-07-25] MEDS: ASPIRIN COATED 81 MG TABLET.EC PO SCH (09:14)
[2020-07-25] MEDS: LACTULOSE 20 GM/30 ML UDC (FOR ORAL USE ONLY) PO SCH ×4 (09:14→21:48)
[2020-07-25] MEDS: ENALAPRIL MALEATE 10 MG TABLET (FP) PO SCH (09:15)
[2020-07-25] MEDS: FAMOTIDINE 20 MG TABLET PO SCH ×2 (09:15→21:18)
[2020-07-25] MEDS: PRENATAL VITAMINS W/ FOLIC ACID TABLET (FP) PO SCH (09:15)
[2020-07-25] MEDS: NICOTINE 7 MG/24 HOURS TOPICAL PATCH TD SCH (09:15)
[2020-07-25] MEDS: MAGNESIUM HYDROX 2400MG/30ML ORAL SUSPENSION 30 ML CUP PO PRN (10:43)
[2020-07-25] MEDS: INSULIN (LEVEMIR) 100 UNITS/ML UNITS SQ SCH (21:17)
[2020-07-25] MEDS: ATORVASTATIN CA 10 MG TABLET (FP) PO SCH (21:17)
[2020-07-25] MEDS: MELATONIN 5 MG TABLETS PO SCH (21:18)
[2020-07-25] MEDS: QUEtiapine FUMARATE 100 MG TABLET (FP) PO SCH (21:18)
[2020-07-25] MEDS: THIAMINE HCL 100 MG TABLET (FP) PO SCH (21:18)
[2020-07-26] MEDS ORDERED: PT OWN MED DRAWER 7, Y5N ONE ×2 (06:24→08:37)
[2020-07-26] MEDS: metFORMIN HCL 500 MG TABLET (FP) PO SCH ×2 (06:40→21:20)
[2020-07-26] MEDS: INSULIN SLIDING SCALE (NOVOLOG) 1 VIAL SQ SCH ×4 (06:40→21:15)
[2020-07-26] MEDS: LEVOTHYROXINE NA 25 MCG TABLET (FP) PO SCH (06:41)
[2020-07-26] MEDS: LACTULOSE 20 GM/30 ML UDC (FOR ORAL USE ONLY) PO SCH ×4 (09:35→21:20)
[2020-07-26] MEDS: ENALAPRIL MALEATE 10 MG TABLET (FP) PO SCH (09:35)
[2020-07-26] MEDS: ASPIRIN COATED 81 MG TABLET.EC PO SCH (09:35)
[2020-07-26] MEDS: NICOTINE 7 MG/24 HOURS TOPICAL PATCH TD SCH (09:36)
[2020-07-26] MEDS: PRENATAL VITAMINS W/ FOLIC ACID TABLET (FP) PO SCH (09:36)
[2020-07-26] MEDS: FAMOTIDINE 20 MG TABLET PO SCH ×2 (09:37→21:21)
--- NOTE | 2020-07-26 17:58 | PN ---
[facility] Progress Note Note: Psychiatry Attending's note (follow-up) : Called earlier by RN to review patient's medications. Chart reviewed. Individual session conducted with patient. In the presence of female staff, nursing consultant Bal Martinez. Patient is cooperative but " upset " because of medications changes. Reasons explained to patient : sedation, cognitive issues, unsteady gait. And hyperammonemia while receiving detoxification treatment at [address] [place] [address]. Ms Sanchez is observed as alert and fully oriented, conversant and appropriate. She is ambulatory. Gait is steady. Patient communicates well. Goal-directed. Patient is well cognizant of her medications. Insists on resuming her usual doses. " I have started to feel irritable and vega. I need to get back on my full medications." She requests resumption of gabapentin + seroquel (at a much higher dose)+ risperdal. Risks versus benefits of these formulations are explained to the patient. Consent granted. Medications were verified by this radio news writer via contact with [facility] (see note of 07/02/20). In view of potential for psychiatric decompensation (impulsivity/jessica/psychosis), will resume : seroquel 200 mg po hs + gabapentin 200 mg po bid + risperdal 1 mg po hs. Close observation. Patient shows good insight into her condition. She is receptive to psychoeducation and counseling. Mood remains stable. Appropriate affect. No hallucinations. No delusion elicited. Coherent thought processes. Patient denies suicidal or homicidal ideation, intent or plan. Mental status is stable at time of this examination. Psychotropics are revisited with patient. Continue to follow ammonia level. Psychiatry-Liaison will follow as indicated.
[2020-07-26] MEDS ORDERED: INSULIN (NOVOLOG) ASPART 100 UNITS/ML 10ML VIAL ONE (21:18)
[2020-07-26] MEDS: THIAMINE HCL 100 MG TABLET (FP) PO SCH (21:20)
[2020-07-26] MEDS: GABAPENTIN 100 MG CAPSULE PO SCH (21:20)
[2020-07-26] MEDS: ATORVASTATIN CA 10 MG TABLET (FP) PO SCH (21:20)
[2020-07-26] MEDS: risperiDONE 1 MG TABLET PO SCH (21:21)
[2020-07-26] MEDS: MELATONIN 5 MG TABLETS PO SCH (21:21)
[2020-07-26] MEDS: QUEtiapine FUMARATE 200 MG TABLET PO SCH (21:21)
[2020-07-26] MEDS: INSULIN (LEVEMIR) 100 UNITS/ML UNITS SQ SCH (21:23)
[2020-07-26] MEDS ORDERED: GABAPENTIN 300 MG CAPSULE PO SCH (22:00)
[2020-07-27] MEDS ORDERED: PT OWN MED DRAWER 7, Y5N ONE ×2 (03:17→22:13)
[2020-07-27] MEDS: LEVOTHYROXINE NA 25 MCG TABLET (FP) PO SCH (06:52)
[2020-07-27] MEDS: metFORMIN HCL 500 MG TABLET (FP) PO SCH ×2 (06:52→21:12)
[2020-07-27] MEDS: INSULIN SLIDING SCALE (NOVOLOG) 1 VIAL SQ SCH ×4 (06:53→21:09)
[2020-07-27] MEDS: NICOTINE 7 MG/24 HOURS TOPICAL PATCH TD SCH (09:54)
[2020-07-27] MEDS: GABAPENTIN 100 MG CAPSULE PO SCH ×2 (09:55→21:12)
[2020-07-27] MEDS: LACTULOSE 20 GM/30 ML UDC (FOR ORAL USE ONLY) PO SCH (09:55)
[2020-07-27] MEDS: FAMOTIDINE 20 MG TABLET PO SCH ×2 (09:55→21:13)
[2020-07-27] MEDS: PRENATAL VITAMINS W/ FOLIC ACID TABLET (FP) PO SCH (09:56)
[2020-07-27] MEDS: ENALAPRIL MALEATE 10 MG TABLET (FP) PO SCH (09:56)
[2020-07-27] MEDS: ASPIRIN COATED 81 MG TABLET.EC PO SCH (09:56)
[2020-07-27] MEDS ORDERED: INSULIN (NOVOLOG) ASPART 100 UNITS/ML 10ML VIAL ONE ×2 (11:48→21:09)
[2020-07-27] MEDS: INSULIN (LEVEMIR) 100 UNITS/ML UNITS SQ SCH (21:11)
[2020-07-27] MEDS: risperiDONE 1 MG TABLET PO SCH (21:12)
[2020-07-27] MEDS: ATORVASTATIN CA 10 MG TABLET (FP) PO SCH (21:12)
[2020-07-27] MEDS: QUEtiapine FUMARATE 200 MG TABLET PO SCH (21:12)
[2020-07-27] MEDS: THIAMINE HCL 100 MG TABLET (FP) PO SCH (21:12)
[2020-07-27] MEDS: MELATONIN 5 MG TABLETS PO SCH (21:13)
[2020-07-27] MEDS: CARBAMIDE PEROXIDE 6.5% OTIC 15 ML BOTTLE AU SCH (22:11)
[2020-07-28] MEDS ORDERED: PT OWN MED DRAWER 7, Y5N ONE ×4 (03:12→22:13)
[2020-07-28] MEDS: metFORMIN HCL 500 MG TABLET (FP) PO SCH ×2 (06:38→21:28)
[2020-07-28] MEDS: LEVOTHYROXINE NA 25 MCG TABLET (FP) PO SCH (06:38)
[2020-07-28] MEDS: INSULIN SLIDING SCALE (NOVOLOG) 1 VIAL SQ SCH ×4 (06:39→22:10)
[2020-07-28] MEDS: CARBAMIDE PEROXIDE 6.5% OTIC 15 ML BOTTLE AU SCH ×2 (09:31→21:31)
[2020-07-28] MEDS: GABAPENTIN 100 MG CAPSULE PO SCH ×2 (09:32→21:28)
[2020-07-28] MEDS: ASPIRIN COATED 81 MG TABLET.EC PO SCH (09:32)
[2020-07-28] MEDS: NICOTINE 7 MG/24 HOURS TOPICAL PATCH TD SCH (09:32)
[2020-07-28] MEDS: FAMOTIDINE 20 MG TABLET PO SCH ×2 (09:33→22:13)
[2020-07-28] MEDS: ENALAPRIL MALEATE 10 MG TABLET (FP) PO SCH (09:33)
[2020-07-28] MEDS: PRENATAL VITAMINS W/ FOLIC ACID TABLET (FP) PO SCH (09:33)
[2020-07-28] MEDS ORDERED: INSULIN (NOVOLOG) ASPART 100 UNITS/ML 10ML VIAL ONE ×3 (11:49→22:10)
[2020-07-28] MEDS: risperiDONE 1 MG TABLET PO SCH (21:29)
[2020-07-28] MEDS: ATORVASTATIN CA 10 MG TABLET (FP) PO SCH (21:29)
[2020-07-28] MEDS: QUEtiapine FUMARATE 200 MG TABLET PO SCH (21:29)
[2020-07-28] MEDS: MELATONIN 5 MG TABLETS PO SCH (21:29)
[2020-07-28] MEDS: THIAMINE HCL 100 MG TABLET (FP) PO SCH (21:29)
[2020-07-28] MEDS: INSULIN (LEVEMIR) 100 UNITS/ML UNITS SQ SCH (22:04)
[2020-07-28] MEDS: MAG HYDROX/AL HYDROX/SIMETH 30 ML UNIT-DOSE CUP PO PRN (22:10)
--- NOTE | 2020-07-29 00:02 | PN ---
[facility] Progress Note Note: lactulose restarted for elevated ammonia level 55.3 from 37.5
[2020-07-29] MEDS ORDERED: PT OWN MED DRAWER 7, Y5N ONE ×4 (05:55→21:00)
[2020-07-29] MEDS: LACTULOSE 20 GM/30 ML UDC (FOR ORAL USE ONLY) PO SCH ×3 (06:11→21:04)
[2020-07-29] MEDS: LEVOTHYROXINE NA 25 MCG TABLET (FP) PO SCH (06:24)
[2020-07-29] MEDS: metFORMIN HCL 500 MG TABLET (FP) PO SCH ×2 (06:24→21:04)
[2020-07-29] MEDS: INSULIN SLIDING SCALE (NOVOLOG) 1 VIAL SQ SCH ×4 (07:06→21:05)
[2020-07-29] MEDS: NICOTINE 7 MG/24 HOURS TOPICAL PATCH TD SCH (09:51)
[2020-07-29] MEDS: PRENATAL VITAMINS W/ FOLIC ACID TABLET (FP) PO SCH (09:51)
[2020-07-29] MEDS: ASPIRIN COATED 81 MG TABLET.EC PO SCH (09:51)
[2020-07-29] MEDS: GABAPENTIN 100 MG CAPSULE PO SCH ×2 (09:51→21:04)
[2020-07-29] MEDS: FAMOTIDINE 20 MG TABLET PO SCH ×2 (09:52→21:05)
[2020-07-29] MEDS: ENALAPRIL MALEATE 10 MG TABLET (FP) PO SCH (09:52)
[2020-07-29] MEDS: CARBAMIDE PEROXIDE 6.5% OTIC 15 ML BOTTLE AU SCH ×2 (09:53→21:08)
[2020-07-29] MEDS ORDERED: INSULIN (NOVOLOG) ASPART 100 UNITS/ML 10ML VIAL ONE ×2 (11:57→16:53)
[2020-07-29] MEDS: ATORVASTATIN CA 10 MG TABLET (FP) PO SCH (21:04)
[2020-07-29] MEDS: risperiDONE 1 MG TABLET PO SCH (21:04)
[2020-07-29] MEDS: QUEtiapine FUMARATE 200 MG TABLET PO SCH (21:04)
[2020-07-29] MEDS: INSULIN (LEVEMIR) 100 UNITS/ML UNITS SQ SCH (21:04)
[2020-07-29] MEDS: THIAMINE HCL 100 MG TABLET (FP) PO SCH (21:05)
[2020-07-29] MEDS: MELATONIN 5 MG TABLETS PO SCH (21:07)
[2020-07-29] MEDS ORDERED: INSULIN (LEVEMIR) 100 UNITS/ML UNITS SQ ONE (21:58)
[2020-07-30] MEDS: LEVOTHYROXINE NA 25 MCG TABLET (FP) PO SCH (06:46)
[2020-07-30] MEDS: INSULIN SLIDING SCALE (NOVOLOG) 1 VIAL SQ SCH ×4 (06:46→21:13)
[2020-07-30] MEDS: metFORMIN HCL 500 MG TABLET (FP) PO SCH ×2 (06:46→21:12)
[2020-07-30] MEDS ORDERED: PT OWN MED DRAWER 7, Y5N ONE ×2 (08:10→21:16)
[2020-07-30] MEDS: CARBAMIDE PEROXIDE 6.5% OTIC 15 ML BOTTLE AU SCH ×2 (09:46→21:16)
[2020-07-30] MEDS: LACTULOSE 20 GM/30 ML UDC (FOR ORAL USE ONLY) PO SCH ×2 (09:46→21:17)
[2020-07-30] MEDS: FAMOTIDINE 20 MG TABLET PO SCH ×2 (09:47→21:13)
[2020-07-30] MEDS: PRENATAL VITAMINS W/ FOLIC ACID TABLET (FP) PO SCH (09:47)
[2020-07-30] MEDS: NICOTINE 7 MG/24 HOURS TOPICAL PATCH TD SCH (09:47)
[2020-07-30] MEDS: ASPIRIN COATED 81 MG TABLET.EC PO SCH (09:47)
[2020-07-30] MEDS: ENALAPRIL MALEATE 10 MG TABLET (FP) PO SCH (09:48)
[2020-07-30] MEDS: GABAPENTIN 100 MG CAPSULE PO SCH ×2 (09:48→21:12)
[2020-07-30] MEDS ORDERED: INSULIN (NOVOLOG) ASPART 100 UNITS/ML 10ML VIAL ONE ×2 (12:05→21:10)
--- NOTE | 2020-07-30 17:55 | PN ---
[facility] Progress Note Note: Psychiatry Attending's note (follow-up) : Chart reviewed. Came to [facility] to evaluate patient. Ms Sanchez met briefly with MD. In the presence of nurse on duty. " I don't need to see the psychiatrist." " I am fine. I am taking my medications." Patient declines to be interviewed. She reports satisfaction on current doses. No adverse effects reported by the patient. Consistent adequate personal hygiene is noted. Baseline functioning. Stable mental status. Recommend monitoring of ammonia level. No need for further psychiatric intervention.
[2020-07-30] MEDS: QUEtiapine FUMARATE 200 MG TABLET PO SCH (21:12)
[2020-07-30] MEDS: THIAMINE HCL 100 MG TABLET (FP) PO SCH (21:12)
[2020-07-30] MEDS: ATORVASTATIN CA 10 MG TABLET (FP) PO SCH (21:12)
[2020-07-30] MEDS: INSULIN (LEVEMIR) 100 UNITS/ML UNITS SQ SCH (21:13)
[2020-07-30] MEDS: risperiDONE 1 MG TABLET PO SCH (21:13)
[2020-07-30] MEDS: MELATONIN 5 MG TABLETS PO SCH (21:13)
[2020-07-31] MEDS ORDERED: PT OWN MED DRAWER 7, Y5N ONE ×2 (03:11→08:30)
[2020-07-31] MEDS: metFORMIN HCL 500 MG TABLET (FP) PO SCH ×2 (06:28→21:21)
[2020-07-31] MEDS: LEVOTHYROXINE NA 25 MCG TABLET (FP) PO SCH (06:28)
[2020-07-31] MEDS: INSULIN SLIDING SCALE (NOVOLOG) 1 VIAL SQ SCH ×4 (06:28→21:22)
[2020-07-31] MEDS: ASPIRIN COATED 81 MG TABLET.EC PO SCH (09:48)
[2020-07-31] MEDS: GABAPENTIN 100 MG CAPSULE PO SCH ×2 (09:48→21:20)
[2020-07-31] MEDS: CARBAMIDE PEROXIDE 6.5% OTIC 15 ML BOTTLE AU SCH ×2 (09:48→21:21)
[2020-07-31] MEDS: FAMOTIDINE 20 MG TABLET PO SCH ×2 (09:48→21:24)
[2020-07-31] MEDS: PRENATAL VITAMINS W/ FOLIC ACID TABLET (FP) PO SCH (09:48)
[2020-07-31] MEDS: NICOTINE 7 MG/24 HOURS TOPICAL PATCH TD SCH (09:48)
[2020-07-31] MEDS: LACTULOSE 20 GM/30 ML UDC (FOR ORAL USE ONLY) PO SCH ×2 (09:48→21:20)
[2020-07-31] MEDS: ENALAPRIL MALEATE 10 MG TABLET (FP) PO SCH (09:48)
[2020-07-31] MEDS ORDERED: INSULIN (NOVOLOG) ASPART 100 UNITS/ML 10ML VIAL ONE ×3 (11:57→21:18)
[2020-07-31] MEDS: THIAMINE HCL 100 MG TABLET (FP) PO SCH (21:20)
[2020-07-31] MEDS: INSULIN (LEVEMIR) 100 UNITS/ML UNITS SQ SCH (21:21)
[2020-07-31] MEDS: risperiDONE 1 MG TABLET PO SCH (21:21)
[2020-07-31] MEDS: QUEtiapine FUMARATE 200 MG TABLET PO SCH (21:21)
[2020-07-31] MEDS: ATORVASTATIN CA 10 MG TABLET (FP) PO SCH (21:22)
[2020-07-31] MEDS: MELATONIN 5 MG TABLETS PO SCH (21:22)
[2020-08-01] MEDS: metFORMIN HCL 500 MG TABLET (FP) PO SCH ×2 (06:39→21:08)
[2020-08-01] MEDS: LEVOTHYROXINE NA 25 MCG TABLET (FP) PO SCH (06:39)
[2020-08-01] MEDS: INSULIN SLIDING SCALE (NOVOLOG) 1 VIAL SQ SCH ×4 (06:40→21:07)
[2020-08-01] MEDS ORDERED: PT OWN MED DRAWER 7, Y5N ONE (08:19)
[2020-08-01] MEDS: CARBAMIDE PEROXIDE 6.5% OTIC 15 ML BOTTLE AU SCH ×2 (09:51→21:09)
[2020-08-01] MEDS: PRENATAL VITAMINS W/ FOLIC ACID TABLET (FP) PO SCH (09:52)
[2020-08-01] MEDS: GABAPENTIN 100 MG CAPSULE PO SCH ×2 (09:52→21:08)
[2020-08-01] MEDS: LACTULOSE 20 GM/30 ML UDC (FOR ORAL USE ONLY) PO SCH ×2 (09:52→21:09)
[2020-08-01] MEDS: ASPIRIN COATED 81 MG TABLET.EC PO SCH (09:52)
[2020-08-01] MEDS: ENALAPRIL MALEATE 10 MG TABLET (FP) PO SCH (09:52)
[2020-08-01] MEDS: NICOTINE 7 MG/24 HOURS TOPICAL PATCH TD SCH (09:52)
[2020-08-01] MEDS: FAMOTIDINE 20 MG TABLET PO SCH ×2 (09:53→21:09)
[2020-08-01] MEDS ORDERED: INSULIN (NOVOLOG) ASPART 100 UNITS/ML 10ML VIAL ONE ×3 (11:51→22:33)
[2020-08-01] MEDS: THIAMINE HCL 100 MG TABLET (FP) PO SCH (21:06)
[2020-08-01] MEDS: INSULIN (LEVEMIR) 100 UNITS/ML UNITS SQ SCH (21:06)
[2020-08-01] MEDS: ATORVASTATIN CA 10 MG TABLET (FP) PO SCH (21:08)
[2020-08-01] MEDS: risperiDONE 1 MG TABLET PO SCH (21:08)
[2020-08-01] MEDS: QUEtiapine FUMARATE 200 MG TABLET PO SCH (21:08)
[2020-08-01] MEDS: MELATONIN 5 MG TABLETS PO SCH (21:09)
[2020-08-02] MEDS ORDERED: PT OWN MED DRAWER 7, Y5N ONE ×2 (05:56→08:44)
[2020-08-02] MEDS: metFORMIN HCL 500 MG TABLET (FP) PO SCH ×2 (06:04→21:05)
[2020-08-02] MEDS: LEVOTHYROXINE NA 25 MCG TABLET (FP) PO SCH (06:04)
[2020-08-02] MEDS: INSULIN SLIDING SCALE (NOVOLOG) 1 VIAL SQ SCH ×4 (06:05→21:03)
[2020-08-02] MEDS: LACTULOSE 20 GM/30 ML UDC (FOR ORAL USE ONLY) PO SCH ×2 (09:44→21:05)
[2020-08-02] MEDS: ASPIRIN COATED 81 MG TABLET.EC PO SCH (09:45)
[2020-08-02] MEDS: GABAPENTIN 100 MG CAPSULE PO SCH ×2 (09:45→21:05)
[2020-08-02] MEDS: NICOTINE 7 MG/24 HOURS TOPICAL PATCH TD SCH (09:45)
[2020-08-02] MEDS: FAMOTIDINE 20 MG TABLET PO SCH ×2 (09:46→21:06)
[2020-08-02] MEDS: ENALAPRIL MALEATE 10 MG TABLET (FP) PO SCH (09:46)
[2020-08-02] MEDS: PRENATAL VITAMINS W/ FOLIC ACID TABLET (FP) PO SCH (09:46)
[2020-08-02] MEDS: CARBAMIDE PEROXIDE 6.5% OTIC 15 ML BOTTLE AU SCH ×2 (10:23→21:05)
--- NOTE | 2020-08-02 11:27 | PN ---
[facility] Progress Note Note: Patient is scheduled for discharge tomorrow. Scripts for 30 days supply of medications(Seroquel 200 mg/hs, Risperdal 1 mg/hs, Gabapentin 200 mg/bid) will be electronically transmitted to [facility], [address] [place] [address]
[2020-08-02] MEDS ORDERED: INSULIN (NOVOLOG) ASPART 100 UNITS/ML 10ML VIAL ONE ×2 (16:55→22:15)
[2020-08-02] MEDS: INSULIN (LEVEMIR) 100 UNITS/ML UNITS SQ SCH (21:04)
[2020-08-02] MEDS: QUEtiapine FUMARATE 200 MG TABLET PO SCH (21:05)
[2020-08-02] MEDS: ATORVASTATIN CA 10 MG TABLET (FP) PO SCH (21:05)
[2020-08-02] MEDS: risperiDONE 1 MG TABLET PO SCH (21:05)
[2020-08-02] MEDS: THIAMINE HCL 100 MG TABLET (FP) PO SCH (21:05)
[2020-08-02] MEDS: MELATONIN 5 MG TABLETS PO SCH (21:06)
[2020-08-02] MEDS ORDERED: INSULIN (LEVEMIR) 100 UNITS/ML UNITS SQ ONE (22:14)
[2020-08-03] MEDS ORDERED: PT OWN MED DRAWER 7, Y5N ONE (03:13)
[2020-08-03] MEDS: INSULIN SLIDING SCALE (NOVOLOG) 1 VIAL SQ SCH (06:25)
[2020-08-03] MEDS: metFORMIN HCL 500 MG TABLET (FP) PO SCH (06:25)
[2020-08-03] MEDS: LEVOTHYROXINE NA 25 MCG TABLET (FP) PO SCH (06:25)
[2020-08-03 06:53] VITALS: BP 125/82; PULSE 92; TEMP 97.5
--- NOTE | 2020-08-03 08:02 | DS ---
[facility] Rehab Discharge Summary - [facility] Rehab Discharge Summary Admission Date: 07/01/20 Discharge Date: 08/03/20 - History Present History: Alcohol dependence Pertinent Past History: Ms. Sanchez presents to [facility] stating "I need help, I'm drinking myself to ". She was last here in 2011. Her longest sobriety was less than one week. PMH: DM, hypothyroid, COPD PSH: ovarian tumor Psych: bipolar on gabapentin, risperdone and Seroquel SOC: own place in [place] Legal: none - Discharge Physical Exam Vital Signs: Vital Signs Temperature 97.5 F L 08/03/20 06:20 Pulse Rate 92 H 08/03/20 06:20 Respiratory Rate 20 08/03/20 06:20 Blood Pressure 125/82 08/03/20 06:20 O2 Sat by Pulse Oximetry (%) 99 08/03/20 06:20 Pertinent Admission Physical Exam Findings: Physical General Appearance: No Apparent Distress, HEENTM: EOMI, Normocephalic, Respiratory: No Respiratory Distress, No Accessory Muscle Use Neck: Supple Abdominal: +Bowel Sounds, Musculoskeletal: full range of Motion, Gait Steady Neurological: No cognitive deficits. - Treatment Discharge Condition: Discharge condition good (medically stable for discharge.), Outpatient referral accepted (Patient will go to [facility].) - Medication Discharge Medications: Ambulatory Orders Insulin Glargine,Hum.rec.anlog [Lantus] 50 unit SQ HS 07/30/12 Simvastatin [Zocor] 20 mg PO DAILY 07/30/12 Albuterol Sulfate Inhaler - [Ventolin HFA Inhaler -] 2 inh PO Q4H PRN #1 inhaler 08/02/20 Aspirin Coated [Ecotrin -] 81 mg PO DAILY #14 tab 08/02/20 Atorvastatin Ca [Lipitor] 10 mg PO HS #14 tablet 08/02/20 Gabapentin [Neurontin] 200 mg PO BID #120 capsule 08/02/20 Insulin Lispro [Humalog Kwikpen U-100] 0 unit SQ BID #7 cartridge 08/02/20 Levothyroxine [Synthroid -] 100 mcg PO DAILY #14 tablet 08/02/20 Metoprolol Tartrate [Lopressor -] 50 mg PO BID #30 tablet 08/02/20 Quetiapine Fumarate [Seroquel -] 200 mg PO HS #30 tablet 08/02/20 Risperidone [Risperdal -] 1 mg PO HS #30 tablet 08/02/20 metFORMIN HCL [Glucophage -] 1,000 mg PO BID #30 tablet 08/02/20 - Medication-Assisted Treatment (MAT) Medication-Assisted Treatment (MAT): No - Discharge Instructions Diet, activity, other medical instructions: Diet: As tolerated Activity: as tolerated Other medical instructions: Please follow up with aftercare referral. - Diagnosis (1) Alcohol dependence with withdrawal, uncomplicated Current Visit: Yes Status: Chronic (2) Cannabis abuse Current Visit: Yes Status: Chronic - Follow-up Referral Minutes to complete discharge: 17 - AMA Did Patient Leave Against Medical Advice: No
== END 2020-08-03 08:18 | disposition home or self-care (01) | DRG 895 ==
LOC: YASAS 09:44 → Y3N 13:28 → Y3W 07-06 11:01 → Y3E 07-14 13:45
PROVIDERS: ADMIT Allergy & Immunology; ATTEND Allergy & Immunology
PROC: HZ2ZZZZ Detoxification Services for Substance Abuse Treatment (ICD-10-PCS; 2020-07-01)
PROC: HZ42ZZZ Group Counseling for Substance Abuse Treatment, Cognitive-Behavioral (ICD-10-PCS; principal; 2020-07-06)
DX: F10.20 Alcohol dependence, uncomplicated (principal); E72.20 Disorder of urea cycle metabolism, unspecified; F12.20 Cannabis dependence, uncomplicated; F17.210 Nicotine dependence, cigarettes, uncomplicated; F19.24 Other psychoactive substance dependence with psychoactive substance-induced mood disorder; F25.0 Schizoaffective disorder, bipolar type; E03.9 Hypothyroidism, unspecified; E78.5 Hyperlipidemia, unspecified; E11.9 Type 2 diabetes mellitus without complications; Z79.4 Long term (current) use of insulin; I10 Essential (primary) hypertension; J44.9 Chronic obstructive pulmonary disease, unspecified; G47.00 Insomnia, unspecified; Z91.5 Personal history of self-harm; Z88.8 Allergy status to other drugs, medicaments and biological substances
CPT/HCPCS: 36415; 80053; 82140; 82962; 84443; 85027; 86780; 86803; 87389; 93005; 93010; J2794; Q0162; U0003

== ENCOUNTER 2022-04-24 13:11 | Inpatient (IN) | payer MEDICARE, OTHER ==
[2022-04-24] MEDS ORDERED: MAG HYDROX/AL HYDROX/SIMETH 30 ML UNIT-DOSE CUP PO PRN (13:36)
[2022-04-24] MEDS ORDERED: METHOCARBAMOL 500 MG TABLET PO PRN (13:36)
[2022-04-24] MEDS ORDERED: BENZOCAINE/MENTHOL (CHLORASEPTIC ) LOZENGE MM PRN (13:36)
[2022-04-24] MEDS ORDERED: BISMUTH SUBSALICYLATE 262 MG/15 ML BTL PO PRN (13:36)
[2022-04-24] MEDS ORDERED: DICYCLOMINE HCL 10 MG CAPSULE PO PRN (13:36)
[2022-04-24] MEDS ORDERED: LOPERAMIDE HCL 2 MG CAPSULE PO PRN (13:36)
[2022-04-24] MEDS ORDERED: IBUPROFEN 400 MG TABLET (FP) PO PRN (13:36)
[2022-04-24] MEDS ORDERED: ACETAMINOPHEN 325 MG TABLET (FP) PO PRN ×2 (13:36)
[2022-04-24] MEDS ORDERED: chlordiazePOXIDE HCL 25 MG CAPSULE PO PRN (13:36)
[2022-04-24] MEDS ORDERED: MAGNESIUM CITRATE 300 ML BOTTLE PO PRN (13:36)
[2022-04-24] MEDS ORDERED: MAGNESIUM HYDROX 2400MG/30ML ORAL SUSPENSION 30 ML CUP PO PRN (13:36)
[2022-04-24] MEDS ORDERED: ONDANSETRON *ODT* 4 MG TABLET SL PRN (13:36)
[2022-04-24] MEDS ORDERED: NICOTINE 10 MG CARTRIDGE (INHALER) IH PRN (13:36)
[2022-04-24] MEDS ORDERED: LORazepam 1 MG TABLET PO PRN (13:49)
[2022-04-24] MEDS ORDERED: hydrOXYzine PAMOATE 25 MG CAPSULE (FP) PO PRN (14:00)
[2022-04-24 14:28] VITALS: BMI 29.8
[2022-04-24] MEDS ORDERED: chlordiazePOXIDE HCL 25 MG CAPSULE PO SCH (17:00)
[2022-04-24] MEDS: metFORMIN HCL 500 MG TABLET (FP) PO SCH (17:40)
[2022-04-24] MEDS: LORazepam 2 MG TABLET PO SCH ×2 (17:40→22:10)
[2022-04-24] MEDS: INSULIN SLIDING SCALE (NOVOLOG) 1 VIAL SQ SCH (17:41)
[2022-04-24] MEDS: PRENATAL VITAMINS W/ FOLIC ACID TABLET (FP) PO SCH (17:45)
[2022-04-24] MEDS: NICOTINE 21 MG/24 HOURS TOPICAL PATCH TD SCH (17:45)
[2022-04-24] MEDS ORDERED: MELATONIN 5 MG TABLETS PO SCH (22:00)
[2022-04-24] MEDS: INSULIN (LEVEMIR) 100 UNITS/ML UNITS SQ SCH (22:10)
[2022-04-24] MEDS: THIAMINE HCL 100 MG TABLET (FP) PO SCH (22:10)
[2022-04-24] MEDS: METOPROLOL TARTRATE 50 MG TABLET (FP) PO SCH (22:10)
[2022-04-25] MEDS: LORazepam 2 MG TABLET PO SCH ×4 (06:02→22:35)
[2022-04-25] MEDS: metFORMIN HCL 500 MG TABLET (FP) PO SCH ×2 (06:03→16:57)
[2022-04-25] MEDS: LEVOTHYROXINE NA 100 MCG TABLET (FP) PO SCH (06:04)
[2022-04-25] MEDS: INSULIN SLIDING SCALE (NOVOLOG) 1 VIAL SQ SCH ×2 (08:10→17:55)
[2022-04-25] MEDS: METOPROLOL TARTRATE 50 MG TABLET (FP) PO SCH ×2 (10:12→22:34)
[2022-04-25] MEDS: ASPIRIN COATED 81 MG TABLET.EC PO SCH (10:13)
[2022-04-25] MEDS: PRENATAL VITAMINS W/ FOLIC ACID TABLET (FP) PO SCH (10:13)
[2022-04-25] MEDS: ATORVASTATIN CA 10 MG TABLET (FP) PO SCH (10:13)
[2022-04-25] MEDS: NICOTINE 21 MG/24 HOURS TOPICAL PATCH TD SCH (10:14)
[2022-04-25] MEDS ORDERED: BISMUTH SUBSALICYLATE 262 MG/15 ML BTL PO ONE (10:16)
[2022-04-25] MEDS: GABAPENTIN 400 MG CAPSULE PO SCH ×2 (11:00→22:35)
[2022-04-25] MEDS: LIDOCAINE 5% TOPICAL PATCH TP SCH (11:04)
[2022-04-25] MEDS ORDERED: QUEtiapine FUMARATE 50 MG TABLET ONE (21:15)
[2022-04-25] MEDS ORDERED: QUEtiapine FUMARATE 100 MG TABLET (FP) ONE (21:15)
[2022-04-25] MEDS ORDERED: QUEtiapine FUMARATE 100 MG TABLET (FP) PO SCH (22:00)
[2022-04-25] MEDS: THIAMINE HCL 100 MG TABLET (FP) PO SCH (22:34)
[2022-04-25] MEDS: QUETIAPINE FUMARATE 300 MG, QUETIAPINE FUMARATE 50 MG PO SCH (22:34)
[2022-04-25] MEDS: risperiDONE 1 MG TABLET PO SCH (22:34)
[2022-04-25] MEDS: INSULIN (LEVEMIR) 100 UNITS/ML UNITS SQ SCH (22:35)
[2022-04-25] MEDS: ALBUTEROL SO4 HFA INHALER IH PRN (22:50)
[2022-04-25] MEDS: LIDOCAINE PATCH REMOVAL MC SCH (22:54)
[2022-04-26] MEDS ORDERED: chlordiazePOXIDE HCL 25 MG CAPSULE PO SCH (05:00)
[2022-04-26] MEDS ORDERED: INSULIN (NOVOLOG) ASPART 100 UNITS/ML 10ML VIAL ONE ×2 (06:51→17:26)
[2022-04-26] MEDS: LEVOTHYROXINE NA 100 MCG TABLET (FP) PO SCH (07:19)
[2022-04-26] MEDS: metFORMIN HCL 500 MG TABLET (FP) PO SCH ×2 (07:19→17:00)
[2022-04-26] MEDS: INSULIN SLIDING SCALE (NOVOLOG) 1 VIAL SQ SCH ×2 (07:26→16:48)
[2022-04-26] MEDS: LORazepam 1 MG TABLET PO SCH ×4 (07:30→23:29)
[2022-04-26] MEDS: PRENATAL VITAMINS W/ FOLIC ACID TABLET (FP) PO SCH (09:59)
[2022-04-26] MEDS: ASPIRIN COATED 81 MG TABLET.EC PO SCH (10:00)
[2022-04-26] MEDS: METOPROLOL TARTRATE 50 MG TABLET (FP) PO SCH ×2 (10:00→21:52)
[2022-04-26] MEDS: ATORVASTATIN CA 10 MG TABLET (FP) PO SCH (10:00)
[2022-04-26] MEDS: LIDOCAINE 5% TOPICAL PATCH TP SCH (10:00)
[2022-04-26] MEDS: GABAPENTIN 400 MG CAPSULE PO SCH ×2 (10:00→21:52)
[2022-04-26] MEDS: NICOTINE 21 MG/24 HOURS TOPICAL PATCH TD SCH (10:02)
[2022-04-26] MEDS: INSULIN (LEVEMIR) 100 UNITS/ML UNITS SQ SCH (21:34)
[2022-04-26] MEDS ORDERED: QUEtiapine FUMARATE 100 MG TABLET (FP) ONE (21:35)
[2022-04-26] MEDS ORDERED: QUEtiapine FUMARATE 50 MG TABLET ONE (21:36)
[2022-04-26] MEDS: ALBUTEROL SO4 HFA INHALER IH PRN (21:51)
[2022-04-26] MEDS: QUETIAPINE FUMARATE 300 MG, QUETIAPINE FUMARATE 50 MG PO SCH (21:51)
[2022-04-26] MEDS: risperiDONE 1 MG TABLET PO SCH (21:52)
[2022-04-26] MEDS: THIAMINE HCL 100 MG TABLET (FP) PO SCH (21:52)
[2022-04-26] MEDS: LIDOCAINE PATCH REMOVAL MC SCH (23:03)
[2022-04-27] MEDS ORDERED: chlordiazePOXIDE HCL 10 MG CAPSULE PO PRN
[2022-04-27] MEDS ORDERED: LORazepam 0.5 MG TABLET PO PRN
[2022-04-27] MEDS ORDERED: chlordiazePOXIDE HCL 10 MG CAPSULE PO SCH (05:00)
[2022-04-27] MEDS: LORazepam 0.5 MG TABLET PO SCH ×4 (06:43→22:00)
[2022-04-27] MEDS: LEVOTHYROXINE NA 100 MCG TABLET (FP) PO SCH (06:44)
[2022-04-27] MEDS: metFORMIN HCL 500 MG TABLET (FP) PO SCH ×2 (06:44→17:07)
[2022-04-27] MEDS: INSULIN SLIDING SCALE (NOVOLOG) 1 VIAL SQ SCH ×2 (07:28→16:55)
[2022-04-27] MEDS: GABAPENTIN 400 MG CAPSULE PO SCH ×2 (11:37→21:56)
[2022-04-27] MEDS: PRENATAL VITAMINS W/ FOLIC ACID TABLET (FP) PO SCH (11:37)
[2022-04-27] MEDS: ASPIRIN COATED 81 MG TABLET.EC PO SCH (11:37)
[2022-04-27] MEDS: ATORVASTATIN CA 10 MG TABLET (FP) PO SCH (11:37)
[2022-04-27] MEDS: LIDOCAINE 5% TOPICAL PATCH TP SCH (11:37)
[2022-04-27] MEDS: METOPROLOL TARTRATE 50 MG TABLET (FP) PO SCH ×2 (11:38→21:57)
[2022-04-27] MEDS: NICOTINE 21 MG/24 HOURS TOPICAL PATCH TD SCH (11:38)
[2022-04-27] MEDS ORDERED: INSULIN (NOVOLOG) ASPART 100 UNITS/ML 10ML VIAL ONE (17:06)
[2022-04-27] MEDS ORDERED: QUEtiapine FUMARATE 100 MG TABLET (FP) ONE (21:06)
[2022-04-27] MEDS ORDERED: QUEtiapine FUMARATE 50 MG TABLET ONE (21:06)
[2022-04-27] MEDS: THIAMINE HCL 100 MG TABLET (FP) PO SCH (21:56)
[2022-04-27] MEDS: ALBUTEROL SO4 HFA INHALER IH PRN (21:56)
[2022-04-27] MEDS: INSULIN (LEVEMIR) 100 UNITS/ML UNITS SQ SCH (21:57)
[2022-04-27] MEDS: QUETIAPINE FUMARATE 300 MG, QUETIAPINE FUMARATE 50 MG PO SCH (22:00)
[2022-04-27] MEDS: risperiDONE 1 MG TABLET PO SCH (22:02)
[2022-04-27] MEDS: LIDOCAINE PATCH REMOVAL MC SCH (23:27)
[2022-04-28] MEDS ORDERED: LORazepam 0.5 MG TABLET PO ONE (05:00)
[2022-04-28] MEDS ORDERED: chlordiazePOXIDE HCL 10 MG CAPSULE PO SCH (05:00)
[2022-04-28] MEDS: LEVOTHYROXINE NA 100 MCG TABLET (FP) PO SCH (06:15)
[2022-04-28] MEDS: metFORMIN HCL 500 MG TABLET (FP) PO SCH (06:15)
[2022-04-28] MEDS: INSULIN SLIDING SCALE (NOVOLOG) 1 VIAL SQ SCH (06:18)
[2022-04-28 09:56] VITALS: BP 109/72; PULSE 80; TEMP 96.9
[2022-04-28] MEDS: PRENATAL VITAMINS W/ FOLIC ACID TABLET (FP) PO SCH (10:06)
[2022-04-28] MEDS: ATORVASTATIN CA 10 MG TABLET (FP) PO SCH (10:06)
[2022-04-28] MEDS: METOPROLOL TARTRATE 50 MG TABLET (FP) PO SCH (10:07)
[2022-04-28] MEDS: ASPIRIN COATED 81 MG TABLET.EC PO SCH (10:07)
[2022-04-28] MEDS: GABAPENTIN 400 MG CAPSULE PO SCH (10:07)
[2022-04-28] MEDS: ALBUTEROL SO4 HFA INHALER IH PRN (10:08)
[2022-04-28] MEDS: NICOTINE 21 MG/24 HOURS TOPICAL PATCH TD SCH (10:09)
[2022-04-28] MEDS: LIDOCAINE 5% TOPICAL PATCH TP SCH (10:10)
[2022-04-29] MEDS ORDERED: chlordiazePOXIDE HCL 10 MG CAPSULE PO ONE (05:00)
== END 2022-04-28 12:18 | disposition other institution (70) | DRG 897 ==
LOC: YASAS 13:11 → Y6N 15:51
PROVIDERS: ADMIT Allergy & Immunology; ATTEND Surgery
PROC: HZ2ZZZZ Detoxification Services for Substance Abuse Treatment (ICD-10-PCS; principal; 2022-04-24)
DX: F10.230 Alcohol dependence with withdrawal, uncomplicated (principal); F19.282 Other psychoactive substance dependence with psychoactive substance-induced sleep disorder; F12.20 Cannabis dependence, uncomplicated; F17.210 Nicotine dependence, cigarettes, uncomplicated; F19.24 Other psychoactive substance dependence with psychoactive substance-induced mood disorder; F31.9 Bipolar disorder, unspecified; I25.10 Atherosclerotic heart disease of native coronary artery without angina pectoris; I10 Essential (primary) hypertension; Z95.5 Presence of coronary angioplasty implant and graft; E03.9 Hypothyroidism, unspecified; E78.5 Hyperlipidemia, unspecified; E11.9 Type 2 diabetes mellitus without complications; Z79.4 Long term (current) use of insulin; Z99.89 Dependence on other enabling machines and devices; Z88.8 Allergy status to other drugs, medicaments and biological substances; W19.XXXA Unspecified fall, initial encounter; Y92.238 Other place in hospital as the place of occurrence of the external cause
CPT/HCPCS: 82962; 93005; 93010; C9803-CS; J2794; U0003; U0005

== ENCOUNTER 2022-04-28 12:23 | Inpatient (IN) | payer MEDICARE, OTHER ==
[2022-04-28] MEDS ORDERED: MAGNESIUM CITRATE 300 ML BOTTLE PO PRN (15:05)
[2022-04-28] MEDS ORDERED: MAGNESIUM HYDROX 2400MG/30ML ORAL SUSPENSION 30 ML CUP PO PRN (15:05)
[2022-04-28] MEDS ORDERED: P-EPHED 60MG/TRIPROLIDI 2.5MG TABLET PO PRN (15:05)
[2022-04-28] MEDS ORDERED: LOPERAMIDE HCL 2 MG CAPSULE PO PRN (15:05)
[2022-04-28] MEDS ORDERED: hydrOXYzine PAMOATE 25 MG CAPSULE (FP) PO PRN (15:05)
[2022-04-28] MEDS ORDERED: ACETAMINOPHEN 325 MG TABLET (FP) PO PRN (15:05)
[2022-04-28] MEDS ORDERED: IBUPROFEN 400 MG TABLET (FP) PO PRN (15:05)
[2022-04-28] MEDS ORDERED: guaiFENesin 200 MG/10 ML 10 ML UNIT-DOSE CUPS PO PRN (15:05)
[2022-04-28] MEDS ORDERED: MAG HYDROX/AL HYDROX/SIMETH 30 ML UNIT-DOSE CUP PO PRN (15:05)
[2022-04-28] MEDS: ALBUTEROL SO4 HFA INHALER IH PRN ×2 (16:53→21:31)
[2022-04-28] MEDS: metFORMIN HCL 500 MG TABLET (FP) PO SCH (16:58)
[2022-04-28] MEDS: INSULIN SLIDING SCALE (NOVOLOG) 1 VIAL SQ SCH (16:59)
[2022-04-28] MEDS: NICOTINE 10 MG CARTRIDGE (INHALER) IH PRN (16:59)
[2022-04-28] MEDS ORDERED: QUEtiapine FUMARATE 50 MG TABLET ONE (20:54)
[2022-04-28] MEDS ORDERED: QUEtiapine FUMARATE 300 MG TABLET ONE (20:54)
[2022-04-28] MEDS: QUETIAPINE FUMARATE 300 MG, QUETIAPINE FUMARATE 50 MG PO SCH (21:32)
[2022-04-28] MEDS: GABAPENTIN 400 MG CAPSULE PO SCH (21:33)
[2022-04-28] MEDS: MELATONIN 5 MG TABLETS PO SCH (21:33)
[2022-04-28] MEDS: THIAMINE HCL 100 MG TABLET (FP) PO SCH (21:33)
[2022-04-28] MEDS: risperiDONE 1 MG TABLET PO SCH (21:33)
[2022-04-28] MEDS: ATORVASTATIN CA 40 MG TABLET (FP) PO SCH (21:33)
[2022-04-28] MEDS: METOPROLOL TARTRATE 25 MG TABLET (FP) PO SCH (21:34)
[2022-04-28] MEDS ORDERED: QUEtiapine FUMARATE 100 MG TABLET (FP) PO SCH (22:00)
[2022-04-29] MEDS ORDERED: INSULIN (NOVOLOG) ASPART 100 UNITS/ML 10ML VIAL ONE ×2 (06:40→18:10)
[2022-04-29] MEDS: metFORMIN HCL 500 MG TABLET (FP) PO SCH ×2 (06:40→18:15)
[2022-04-29] MEDS: LEVOTHYROXINE NA 100 MCG TABLET (FP) PO SCH (06:41)
[2022-04-29] MEDS: INSULIN SLIDING SCALE (NOVOLOG) 1 VIAL SQ SCH ×2 (06:42→18:13)
[2022-04-29] MEDS: GABAPENTIN 400 MG CAPSULE PO SCH ×2 (10:41→22:32)
[2022-04-29] MEDS: PRENATAL VITAMINS W/ FOLIC ACID TABLET (FP) PO SCH (10:41)
[2022-04-29] MEDS: METOPROLOL TARTRATE 25 MG TABLET (FP) PO SCH ×2 (10:41→22:31)
[2022-04-29] MEDS: NICOTINE 7 MG/24 HOURS TOPICAL PATCH TD SCH (10:41)
[2022-04-29] MEDS: NICOTINE 10 MG CARTRIDGE (INHALER) IH PRN (18:21)
[2022-04-29] MEDS ORDERED: QUEtiapine FUMARATE 100 MG TABLET (FP) ONE (20:28)
[2022-04-29] MEDS ORDERED: QUEtiapine FUMARATE 50 MG TABLET ONE (20:29)
[2022-04-29] MEDS: ATORVASTATIN CA 40 MG TABLET (FP) PO SCH (22:31)
[2022-04-29] MEDS: QUETIAPINE FUMARATE 300 MG, QUETIAPINE FUMARATE 50 MG PO SCH (22:32)
[2022-04-29] MEDS: THIAMINE HCL 100 MG TABLET (FP) PO SCH (22:32)
[2022-04-29] MEDS: MELATONIN 5 MG TABLETS PO SCH (22:32)
[2022-04-29] MEDS: risperiDONE 1 MG TABLET PO SCH (22:35)
[2022-04-30] MEDS: metFORMIN HCL 500 MG TABLET (FP) PO SCH ×2 (06:21→16:47)
[2022-04-30] MEDS: LEVOTHYROXINE NA 100 MCG TABLET (FP) PO SCH (06:21)
[2022-04-30] MEDS ORDERED: INSULIN (NOVOLOG) ASPART 100 UNITS/ML 10ML VIAL ONE (07:03)
[2022-04-30] MEDS: INSULIN SLIDING SCALE (NOVOLOG) 1 VIAL SQ SCH ×2 (07:05→17:01)
[2022-04-30] MEDS: PRENATAL VITAMINS W/ FOLIC ACID TABLET (FP) PO SCH (10:39)
[2022-04-30] MEDS: GABAPENTIN 400 MG CAPSULE PO SCH ×2 (10:39→21:44)
[2022-04-30] MEDS: METOPROLOL TARTRATE 25 MG TABLET (FP) PO SCH ×2 (10:39→21:45)
[2022-04-30] MEDS: NICOTINE 7 MG/24 HOURS TOPICAL PATCH TD SCH (10:40)
[2022-04-30] MEDS ORDERED: COLLOIDAL OATMEAL 1 BAR EACH TP PRN (10:46)
[2022-04-30] MEDS ORDERED: QUEtiapine FUMARATE 50 MG TABLET ONE (19:15)
[2022-04-30] MEDS ORDERED: QUEtiapine FUMARATE 300 MG TABLET ONE (19:16)
[2022-04-30] MEDS: THIAMINE HCL 100 MG TABLET (FP) PO SCH (21:44)
[2022-04-30] MEDS: ATORVASTATIN CA 40 MG TABLET (FP) PO SCH (21:44)
[2022-04-30] MEDS: QUETIAPINE FUMARATE 300 MG, QUETIAPINE FUMARATE 50 MG PO SCH (21:44)
[2022-04-30] MEDS: MELATONIN 5 MG TABLETS PO SCH (21:45)
[2022-04-30] MEDS: risperiDONE 1 MG TABLET PO SCH (21:45)
[2022-05-01] MEDS: LEVOTHYROXINE NA 100 MCG TABLET (FP) PO SCH (06:30)
[2022-05-01] MEDS: metFORMIN HCL 500 MG TABLET (FP) PO SCH ×2 (06:30→16:50)
[2022-05-01] MEDS ORDERED: INSULIN (NOVOLOG) ASPART 100 UNITS/ML 10ML VIAL ONE ×2 (07:37→16:52)
[2022-05-01] MEDS: INSULIN SLIDING SCALE (NOVOLOG) 1 VIAL SQ SCH ×2 (07:45→16:53)
[2022-05-01] MEDS: PRENATAL VITAMINS W/ FOLIC ACID TABLET (FP) PO SCH (10:48)
[2022-05-01] MEDS: GABAPENTIN 400 MG CAPSULE PO SCH ×2 (10:48→21:48)
[2022-05-01] MEDS: METOPROLOL TARTRATE 25 MG TABLET (FP) PO SCH ×2 (10:48→21:46)
[2022-05-01] MEDS: NICOTINE 7 MG/24 HOURS TOPICAL PATCH TD SCH (10:48)
[2022-05-01 10:53] LABS: EPI CELLS 16 /uL (0-25.1); HYALINE CASTS 1 /uL (0-3.1); URINE APPEARANCE CLEAR; URINE BACTERIA 2154 /uL (0-1359); URINE BILIRUBIN NEGATIVE (NEGATIVE); URINE COLOR YELLOW; URINE GLUCOSE (UA) 3+ (NEGATIVE); URINE KETONE TRACE (NEGATIVE); URINE LEUK ESTERASE TRACE (NEGATIVE); URINE NITRITE NEGATIVE (NEGATIVE); URINE PROTEIN NEGATIVE (NEGATIVE); URINE RBC 9 /uL (0-23.9); URINE WBC 19 /uL (0-25.8)
[2022-05-01] MEDS ORDERED: QUEtiapine FUMARATE 300 MG TABLET ONE (19:48)
[2022-05-01] MEDS ORDERED: QUEtiapine FUMARATE 50 MG TABLET ONE (19:48)
[2022-05-01] MEDS: THIAMINE HCL 100 MG TABLET (FP) PO SCH (21:46)
[2022-05-01] MEDS: ATORVASTATIN CA 40 MG TABLET (FP) PO SCH (21:46)
[2022-05-01] MEDS: QUETIAPINE FUMARATE 300 MG, QUETIAPINE FUMARATE 50 MG PO SCH (21:47)
[2022-05-01] MEDS: risperiDONE 1 MG TABLET PO SCH (21:47)
[2022-05-01] MEDS: MELATONIN 5 MG TABLETS PO SCH (21:47)
[2022-05-02] MEDS: metFORMIN HCL 500 MG TABLET (FP) PO SCH (06:37)
[2022-05-02] MEDS: LEVOTHYROXINE NA 100 MCG TABLET (FP) PO SCH (06:38)
[2022-05-02 08:00] VITALS: BP 146/77; PULSE 81; TEMP 97.8
[2022-05-02] MEDS: INSULIN SLIDING SCALE (NOVOLOG) 1 VIAL SQ SCH (08:01)
[2022-05-02] MEDS: PRENATAL VITAMINS W/ FOLIC ACID TABLET (FP) PO SCH (10:21)
[2022-05-02] MEDS: GABAPENTIN 400 MG CAPSULE PO SCH (10:22)
[2022-05-02] MEDS: METOPROLOL TARTRATE 25 MG TABLET (FP) PO SCH (10:22)
[2022-05-02] MEDS: NICOTINE 7 MG/24 HOURS TOPICAL PATCH TD SCH (10:22)
== END 2022-05-02 11:10 | disposition home or self-care (01) | DRG 895 ==
LOC: YASAS 12:23 → Y5N 12:24
PROVIDERS: ADMIT Allergy & Immunology; ATTEND Psychiatry & Neurology Pain Medicine
PROC: HZ42ZZZ Group Counseling for Substance Abuse Treatment, Cognitive-Behavioral (ICD-10-PCS; principal; 2022-04-28)
DX: F10.20 Alcohol dependence, uncomplicated (principal); F12.20 Cannabis dependence, uncomplicated; I10 Essential (primary) hypertension; E11.9 Type 2 diabetes mellitus without complications; E78.5 Hyperlipidemia, unspecified; E03.9 Hypothyroidism, unspecified; J44.9 Chronic obstructive pulmonary disease, unspecified; Z79.4 Long term (current) use of insulin; Z79.84 Long term (current) use of oral hypoglycemic drugs; Z95.5 Presence of coronary angioplasty implant and graft
CPT/HCPCS: 81003; 82962; 93005; 93010; J2794

== ENCOUNTER 2022-06-27 10:18 | Inpatient (IN) | payer MEDICARE, OTHER ==
[2022-06-27] MEDS ORDERED: chlordiazePOXIDE HCL 25 MG CAPSULE PO SCH (11:00)
[2022-06-27 11:41] VITALS: BMI 30.2
[2022-06-27] MEDS ORDERED: NICOTINE 10 MG CARTRIDGE (INHALER) IH PRN (11:43)
[2022-06-27] MEDS ORDERED: BENZOCAINE/MENTHOL (CHLORASEPTIC ) LOZENGE MM PRN (11:43)
[2022-06-27] MEDS ORDERED: ACETAMINOPHEN 325 MG TABLET (FP) PO PRN ×2 (11:43)
[2022-06-27] MEDS ORDERED: chlordiazePOXIDE HCL 25 MG CAPSULE PO PRN (11:43)
[2022-06-27] MEDS ORDERED: DICYCLOMINE HCL 10 MG CAPSULE PO PRN (11:43)
[2022-06-27] MEDS ORDERED: MAGNESIUM HYDROX 2400MG/30ML ORAL SUSPENSION 30 ML CUP PO PRN (11:43)
[2022-06-27] MEDS ORDERED: MAGNESIUM CITRATE 300 ML BOTTLE PO PRN (11:43)
[2022-06-27] MEDS ORDERED: BISMUTH SUBSALICYLATE 262 MG/15 ML BTL PO PRN (11:43)
[2022-06-27] MEDS ORDERED: IBUPROFEN 400 MG TABLET (FP) PO PRN (11:43)
[2022-06-27] MEDS ORDERED: LOPERAMIDE HCL 2 MG CAPSULE PO PRN (11:43)
[2022-06-27] MEDS ORDERED: IBUPROFEN 600 MG TABLET (FP) PO PRN (11:43)
[2022-06-27] MEDS ORDERED: ONDANSETRON *ODT* 4 MG TABLET SL PRN (11:43)
[2022-06-27] MEDS ORDERED: ALBUTEROL SO4 HFA INHALER IH PRN (11:48)
[2022-06-27] MEDS ORDERED: chlordiazePOXIDE HCL 25 MG CAPSULE ONE (12:18)
[2022-06-27] MEDS ORDERED: diazePAM 5 MG TABLET PO PRN (12:23)
[2022-06-27] MEDS ORDERED: diazePAM 5 MG TABLET ONE (12:30)
[2022-06-27] MEDS: diazePAM 5 MG TABLET PO SCH ×3 (12:31→22:36)
[2022-06-27] MEDS: PRENATAL VITAMINS W/ FOLIC ACID TABLET (FP) PO SCH (13:12)
[2022-06-27 13:53] LABS: HEMATOCRIT 43.9 % (32.4-45.2); MCH 28.9 pg (25.7-33.7); MCHC 34.2 g/dl (32.0-36.0); MEAN CELL VOLUME 84.5 fl (80-96); MEAN PLT VOLUME 8.8 fl (7.5-11.1); PLATELET COUNT 372 10^3/uL (134-434); RBC 5.19 M/mm3 (3.60-5.2); RDW 15.4 % (11.6-15.6); WHITE BLOOD COUNT 6.7 K/mm3 (4.0-10.0)
[2022-06-27] MEDS ORDERED: METOPROLOL TARTRATE 50 MG TABLET (FP) PO ONE (14:03)
[2022-06-27 14:04] LABS: CALCIUM 9.4 mg/dL (8.5-10.1)
[2022-06-27 14:05] LABS: BLOOD UREA NITROGEN 3.5 mg/dL (7-18)
[2022-06-27 14:06] LABS: CREATININE 0.6 mg/dL (0.55-1.3)
[2022-06-27 14:08] LABS: BILIRUBIN,TOTAL 0.6 mg/dL (0.2-1)
[2022-06-27] MEDS: hydrOXYzine PAMOATE 25 MG CAPSULE (FP) PO PRN ×2 (14:20→17:53)
[2022-06-27] MEDS: INSULIN SLIDING SCALE (NOVOLOG) 1 VIAL SQ SCH (16:56)
[2022-06-27] MEDS: METHOCARBAMOL 500 MG TABLET PO PRN (17:54)
[2022-06-27] MEDS: metFORMIN HCL 500 MG TABLET (FP) PO SCH (17:54)
[2022-06-27] MEDS ORDERED: INSULIN (NOVOLOG) ASPART 100 UNITS/ML 10ML VIAL ONE (17:56)
[2022-06-27] MEDS ORDERED: INSULIN (NOVOLOG MIX 70/30) 100 UNITS/ML MDV SQ ONE (17:56)
[2022-06-27] MEDS ORDERED: MELATONIN 5 MG TABLETS PO SCH (22:00)
[2022-06-27] MEDS: THIAMINE HCL 100 MG TABLET (FP) PO SCH (22:37)
[2022-06-27] MEDS: METOPROLOL TARTRATE 50 MG TABLET (FP) PO SCH (22:37)
[2022-06-27] MEDS: GABAPENTIN 400 MG CAPSULE PO SCH (22:37)
[2022-06-27] MEDS: INSULIN (LEVEMIR) 100 UNITS/ML UNITS SQ SCH (22:38)
[2022-06-28] MEDS: diazePAM 5 MG TABLET PO SCH ×4 (05:22→23:04)
[2022-06-28] MEDS: INSULIN SLIDING SCALE (NOVOLOG) 1 VIAL SQ SCH ×4 (06:39→17:00)
[2022-06-28] MEDS: metFORMIN HCL 500 MG TABLET (FP) PO SCH ×3 (06:39→17:29)
[2022-06-28] MEDS: LEVOTHYROXINE NA 100 MCG TABLET (FP) PO SCH (06:40)
[2022-06-28] MEDS ORDERED: INSULIN (NOVOLOG) ASPART 100 UNITS/ML 10ML VIAL ONE ×4 (07:41→18:17)
[2022-06-28] MEDS: ASPIRIN COATED 81 MG TABLET.EC PO SCH (10:28)
[2022-06-28] MEDS: hydrOXYzine PAMOATE 25 MG CAPSULE (FP) PO PRN ×3 (10:28→23:04)
[2022-06-28] MEDS: GABAPENTIN 400 MG CAPSULE PO SCH ×2 (10:28→23:04)
[2022-06-28] MEDS: METOPROLOL TARTRATE 50 MG TABLET (FP) PO SCH ×2 (10:28→23:04)
[2022-06-28] MEDS: PRENATAL VITAMINS W/ FOLIC ACID TABLET (FP) PO SCH (10:28)
[2022-06-28] MEDS: NICOTINE 14 MG/24 HOURS TOPICAL PATCH TD SCH (10:29)
[2022-06-28] MEDS: QUEtiapine FUMARATE 50 MG TABLET PO SCH (12:04)
[2022-06-28] MEDS: METHOCARBAMOL 500 MG TABLET PO PRN (18:29)
[2022-06-28 19:48] LABS: HIV INTERPRETATION NEGATIVE (NEGATIVE)
[2022-06-28] MEDS: ATORVASTATIN CA 10 MG TABLET (FP) PO SCH (23:03)
[2022-06-28] MEDS: risperiDONE 3 MG TABLET PO SCH (23:04)
[2022-06-28] MEDS: QUEtiapine FUMARATE 300 MG TABLET PO SCH (23:04)
[2022-06-28] MEDS: THIAMINE HCL 100 MG TABLET (FP) PO SCH (23:04)
[2022-06-28] MEDS: INSULIN (LEVEMIR) 100 UNITS/ML UNITS SQ SCH (23:06)
[2022-06-29] MEDS ORDERED: chlordiazePOXIDE HCL 25 MG CAPSULE PO SCH (05:00)
[2022-06-29] MEDS: LEVOTHYROXINE NA 100 MCG TABLET (FP) PO SCH (06:34)
[2022-06-29] MEDS: diazePAM 5 MG TABLET PO SCH ×3 (06:34→21:10)
[2022-06-29] MEDS: INSULIN SLIDING SCALE (NOVOLOG) 1 VIAL SQ SCH ×3 (08:01→17:50)
[2022-06-29] MEDS: metFORMIN HCL 500 MG TABLET (FP) PO SCH ×2 (08:01→17:50)
[2022-06-29] MEDS: ASPIRIN COATED 81 MG TABLET.EC PO SCH (10:27)
[2022-06-29] MEDS: hydrOXYzine PAMOATE 25 MG CAPSULE (FP) PO PRN ×3 (10:27→21:08)
[2022-06-29] MEDS: PRENATAL VITAMINS W/ FOLIC ACID TABLET (FP) PO SCH (10:27)
[2022-06-29] MEDS: QUEtiapine FUMARATE 50 MG TABLET PO SCH (10:27)
[2022-06-29] MEDS: METOPROLOL TARTRATE 50 MG TABLET (FP) PO SCH ×2 (10:27→21:07)
[2022-06-29] MEDS: GABAPENTIN 400 MG CAPSULE PO SCH ×2 (10:27→21:07)
[2022-06-29] MEDS: NICOTINE 14 MG/24 HOURS TOPICAL PATCH TD SCH (10:28)
[2022-06-29] MEDS ORDERED: INSULIN (NOVOLOG) ASPART 100 UNITS/ML 10ML VIAL ONE (12:44)
[2022-06-29] MEDS: MAG HYDROX/AL HYDROX/SIMETH 30 ML UNIT-DOSE CUP PO PRN ×2 (19:39→21:07)
[2022-06-29] MEDS: ATORVASTATIN CA 10 MG TABLET (FP) PO SCH (21:07)
[2022-06-29] MEDS: QUEtiapine FUMARATE 300 MG TABLET PO SCH (21:07)
[2022-06-29] MEDS: risperiDONE 3 MG TABLET PO SCH (21:07)
[2022-06-29] MEDS: THIAMINE HCL 100 MG TABLET (FP) PO SCH (21:07)
[2022-06-29] MEDS: INSULIN (LEVEMIR) 100 UNITS/ML UNITS SQ SCH (22:35)
[2022-06-30] MEDS ORDERED: chlordiazePOXIDE HCL 10 MG CAPSULE PO PRN
[2022-06-30] MEDS ORDERED: chlordiazePOXIDE HCL 10 MG CAPSULE PO SCH (05:00)
[2022-06-30] MEDS: diazePAM 5 MG TABLET PO SCH ×2 (06:24→17:41)
[2022-06-30] MEDS: LEVOTHYROXINE NA 100 MCG TABLET (FP) PO SCH (06:24)
[2022-06-30] MEDS: metFORMIN HCL 500 MG TABLET (FP) PO SCH ×2 (06:25→17:41)
[2022-06-30] MEDS: INSULIN SLIDING SCALE (NOVOLOG) 1 VIAL SQ SCH ×3 (06:25→18:05)
[2022-06-30] MEDS: PRENATAL VITAMINS W/ FOLIC ACID TABLET (FP) PO SCH (10:21)
[2022-06-30] MEDS: GABAPENTIN 400 MG CAPSULE PO SCH ×2 (10:21→22:36)
[2022-06-30] MEDS: QUEtiapine FUMARATE 50 MG TABLET PO SCH (10:22)
[2022-06-30] MEDS: hydrOXYzine PAMOATE 25 MG CAPSULE (FP) PO PRN ×3 (10:22→22:36)
[2022-06-30] MEDS: ASPIRIN COATED 81 MG TABLET.EC PO SCH (10:22)
[2022-06-30] MEDS: METHOCARBAMOL 500 MG TABLET PO PRN ×2 (10:22→17:41)
[2022-06-30] MEDS: METOPROLOL TARTRATE 50 MG TABLET (FP) PO SCH ×2 (10:22→22:37)
[2022-06-30] MEDS: NICOTINE 14 MG/24 HOURS TOPICAL PATCH TD SCH (10:22)
[2022-06-30] MEDS ORDERED: INSULIN (NOVOLOG) ASPART 100 UNITS/ML 10ML VIAL ONE (17:25)
[2022-06-30] MEDS: MAG HYDROX/AL HYDROX/SIMETH 30 ML UNIT-DOSE CUP PO PRN (18:07)
[2022-06-30] MEDS: THIAMINE HCL 100 MG TABLET (FP) PO SCH (22:36)
[2022-06-30] MEDS: ATORVASTATIN CA 10 MG TABLET (FP) PO SCH (22:36)
[2022-06-30] MEDS: QUEtiapine FUMARATE 300 MG TABLET PO SCH (22:36)
[2022-06-30] MEDS: risperiDONE 3 MG TABLET PO SCH (22:37)
[2022-06-30] MEDS: INSULIN (LEVEMIR) 100 UNITS/ML UNITS SQ SCH (22:37)
[2022-07-01] MEDS ORDERED: chlordiazePOXIDE HCL 10 MG CAPSULE PO SCH (05:00)
[2022-07-01] MEDS ORDERED: diazePAM 5 MG TABLET PO ONE (06:00)
[2022-07-01] MEDS: LEVOTHYROXINE NA 100 MCG TABLET (FP) PO SCH (06:12)
[2022-07-01] MEDS: metFORMIN HCL 500 MG TABLET (FP) PO SCH (06:30)
[2022-07-01] MEDS: INSULIN SLIDING SCALE (NOVOLOG) 1 VIAL SQ SCH ×2 (06:31→12:10)
[2022-07-01] MEDS ORDERED: QUEtiapine FUMARATE 25 MG TABLET ONE (09:12)
[2022-07-01] MEDS: GABAPENTIN 400 MG CAPSULE PO SCH (10:44)
[2022-07-01] MEDS: PRENATAL VITAMINS W/ FOLIC ACID TABLET (FP) PO SCH (10:44)
[2022-07-01] MEDS: ASPIRIN COATED 81 MG TABLET.EC PO SCH (10:44)
[2022-07-01] MEDS: METOPROLOL TARTRATE 50 MG TABLET (FP) PO SCH (10:44)
[2022-07-01] MEDS: NICOTINE 14 MG/24 HOURS TOPICAL PATCH TD SCH (10:45)
[2022-07-01] MEDS: QUEtiapine FUMARATE 50 MG TABLET PO SCH (10:45)
[2022-07-01 11:15] VITALS: BP 111/60; PULSE 67; RESP 18; TEMP 97
[2022-07-02] MEDS ORDERED: chlordiazePOXIDE HCL 10 MG CAPSULE PO ONE (05:00)
== END 2022-07-01 11:55 | disposition home or self-care (01) | DRG 897 ==
LOC: YASAS 10:18 → Y6N 12:07
PROVIDERS: ADMIT Allergy & Immunology; ATTEND Surgery
PROC: HZ2ZZZZ Detoxification Services for Substance Abuse Treatment (ICD-10-PCS; principal; 2022-06-27)
DX: F10.230 Alcohol dependence with withdrawal, uncomplicated (principal); F19.282 Other psychoactive substance dependence with psychoactive substance-induced sleep disorder; F19.280 Other psychoactive substance dependence with psychoactive substance-induced anxiety disorder; F12.20 Cannabis dependence, uncomplicated; F19.24 Other psychoactive substance dependence with psychoactive substance-induced mood disorder; F31.9 Bipolar disorder, unspecified; I10 Essential (primary) hypertension; E03.9 Hypothyroidism, unspecified; E11.9 Type 2 diabetes mellitus without complications; E78.5 Hyperlipidemia, unspecified; M79.2 Neuralgia and neuritis, unspecified; I25.10 Atherosclerotic heart disease of native coronary artery without angina pectoris; J43.9 Emphysema, unspecified; G47.00 Insomnia, unspecified; Z88.8 Allergy status to other drugs, medicaments and biological substances; Z79.4 Long term (current) use of insulin; Z95.5 Presence of coronary angioplasty implant and graft; Z79.84 Long term (current) use of oral hypoglycemic drugs; Z79.82 Long term (current) use of aspirin; Z91.51 Personal history of suicidal behavior; Z56.0 Unemployment, unspecified
CPT/HCPCS: 36415; 80053; 82962; 85027; 86780; 87389; 87811; 93005; 93010; C9803-CS; U0003; U0005

== ENCOUNTER 2022-07-08 14:46 | Inpatient (IN) | payer MEDICARE, OTHER ==
[2022-07-08] MEDS ORDERED: ACETAMINOPHEN 325 MG TABLET (FP) PO PRN (20:36)
[2022-07-08] MEDS ORDERED: MAGNESIUM CITRATE 300 ML BOTTLE PO PRN (20:36)
[2022-07-08] MEDS ORDERED: NICOTINE POLACRILEX 2 MG GUM BC PRN (20:36)
[2022-07-08] MEDS ORDERED: guaiFENesin 200 MG/10 ML 10 ML UNIT-DOSE CUPS PO PRN (20:36)
[2022-07-08] MEDS ORDERED: P-EPHED 60MG/TRIPROLIDI 2.5MG TABLET PO PRN (20:36)
[2022-07-08] MEDS ORDERED: MAGNESIUM HYDROX 2400MG/30ML ORAL SUSPENSION 30 ML CUP PO PRN (20:36)
[2022-07-08] MEDS ORDERED: IBUPROFEN 400 MG TABLET (FP) PO PRN (20:36)
[2022-07-08] MEDS ORDERED: LOPERAMIDE HCL 2 MG CAPSULE PO PRN (20:36)
[2022-07-08] MEDS ORDERED: ALBUTEROL SO4 HFA INHALER IH PRN (20:54)
[2022-07-08] MEDS: ATORVASTATIN CA 10 MG TABLET (FP) PO SCH (22:34)
[2022-07-08] MEDS: THIAMINE HCL 100 MG TABLET (FP) PO SCH (22:34)
[2022-07-08] MEDS: METOPROLOL TARTRATE 25 MG TABLET (FP) PO SCH (22:34)
[2022-07-08] MEDS: MELATONIN 5 MG TABLETS PO SCH (22:36)
[2022-07-08] MEDS: INSULIN (LEVEMIR) 100 UNITS/ML UNITS SQ SCH (22:38)
[2022-07-09] MEDS: LEVOTHYROXINE NA 100 MCG TABLET (FP) PO SCH (07:13)
[2022-07-09] MEDS: metFORMIN HCL 500 MG TABLET (FP) PO SCH ×2 (07:44→17:05)
[2022-07-09 10:37] LABS: PH,URINE 5.5 (5.0-8.0); URINE APPEARANCE CLEAR; URINE BILIRUBIN NEGATIVE (NEGATIVE); URINE COLOR YELLOW; URINE GLUCOSE (UA) NEGATIVE (NEGATIVE); URINE KETONE TRACE (NEGATIVE); URINE LEUK ESTERASE NEGATIVE (NEGATIVE); URINE NITRITE NEGATIVE (NEGATIVE); URINE PROTEIN NEGATIVE (NEGATIVE); URINE UROBILINOGEN 0.2 mg/dL (0.2-1.0)
[2022-07-09] MEDS: ASPIRIN 81 MG CHEWABLE TABLETS PO SCH (10:38)
[2022-07-09] MEDS: METOPROLOL TARTRATE 25 MG TABLET (FP) PO SCH ×2 (10:38→21:41)
[2022-07-09] MEDS: NICOTINE 21 MG/24 HOURS TOPICAL PATCH TD SCH (10:38)
[2022-07-09] MEDS: PRENATAL VITAMINS W/ FOLIC ACID TABLET (FP) PO SCH (10:38)
[2022-07-09 11:03] LABS: CALCIUM 9.5 mg/dL (8.5-10.1)
[2022-07-09 11:04] LABS: ALBUMIN 3.5 g/dl (3.4-5.0); BLOOD UREA NITROGEN 11.3 mg/dL (7-18)
[2022-07-09 11:07] LABS: CREATININE 0.7 mg/dL (0.55-1.3)
[2022-07-09 11:08] LABS: BILIRUBIN,TOTAL 0.3 mg/dL (0.2-1); TOT PROT 7.1 g/dl (6.4-8.2)
[2022-07-09] MEDS ORDERED: hydrOXYzine PAMOATE 25 MG CAPSULE (FP) PO PRN (13:13)
[2022-07-09] MEDS: GABAPENTIN 400 MG CAPSULE PO SCH ×2 (14:00→21:40)
[2022-07-09] MEDS: QUEtiapine FUMARATE 50 MG TABLET PO SCH (14:00)
[2022-07-09] MEDS: THIAMINE HCL 100 MG TABLET (FP) PO SCH (21:40)
[2022-07-09] MEDS: MELATONIN 5 MG TABLETS PO SCH (21:40)
[2022-07-09] MEDS: ATORVASTATIN CA 10 MG TABLET (FP) PO SCH (21:41)
[2022-07-09] MEDS: risperiDONE 3 MG TABLET PO SCH (21:44)
[2022-07-09] MEDS: INSULIN (LEVEMIR) 100 UNITS/ML UNITS SQ SCH (21:48)
[2022-07-09] MEDS: QUEtiapine FUMARATE 300 MG TABLET PO SCH (21:54)
[2022-07-10] MEDS: LEVOTHYROXINE NA 100 MCG TABLET (FP) PO SCH (06:41)
[2022-07-10] MEDS: metFORMIN HCL 500 MG TABLET (FP) PO SCH ×2 (06:41→16:59)
[2022-07-10] MEDS: PRENATAL VITAMINS W/ FOLIC ACID TABLET (FP) PO SCH (10:22)
[2022-07-10] MEDS: QUEtiapine FUMARATE 50 MG TABLET PO SCH (10:22)
[2022-07-10] MEDS: ASPIRIN 81 MG CHEWABLE TABLETS PO SCH (10:22)
[2022-07-10] MEDS: METOPROLOL TARTRATE 25 MG TABLET (FP) PO SCH ×2 (10:23→21:03)
[2022-07-10] MEDS: GABAPENTIN 400 MG CAPSULE PO SCH ×2 (10:23→21:03)
[2022-07-10] MEDS: NICOTINE 21 MG/24 HOURS TOPICAL PATCH TD SCH (10:24)
[2022-07-10] MEDS: THIAMINE HCL 100 MG TABLET (FP) PO SCH (21:03)
[2022-07-10] MEDS: risperiDONE 3 MG TABLET PO SCH (21:03)
[2022-07-10] MEDS: QUEtiapine FUMARATE 300 MG TABLET PO SCH (21:03)
[2022-07-10] MEDS: ATORVASTATIN CA 10 MG TABLET (FP) PO SCH (21:03)
[2022-07-10] MEDS: INSULIN (LEVEMIR) 100 UNITS/ML UNITS SQ SCH (21:05)
[2022-07-10] MEDS: MELATONIN 5 MG TABLETS PO SCH (21:46)
[2022-07-11] MEDS: LEVOTHYROXINE NA 100 MCG TABLET (FP) PO SCH (06:27)
[2022-07-11] MEDS: metFORMIN HCL 500 MG TABLET (FP) PO SCH ×2 (07:15→16:51)
[2022-07-11] MEDS: ASPIRIN 81 MG CHEWABLE TABLETS PO SCH (10:20)
[2022-07-11] MEDS: QUEtiapine FUMARATE 50 MG TABLET PO SCH (10:20)
[2022-07-11] MEDS: GABAPENTIN 400 MG CAPSULE PO SCH ×2 (10:20→21:25)
[2022-07-11] MEDS: METOPROLOL TARTRATE 25 MG TABLET (FP) PO SCH ×2 (10:20→21:25)
[2022-07-11] MEDS: PRENATAL VITAMINS W/ FOLIC ACID TABLET (FP) PO SCH (10:20)
[2022-07-11] MEDS: NICOTINE 21 MG/24 HOURS TOPICAL PATCH TD SCH (10:21)
[2022-07-11] MEDS: QUEtiapine FUMARATE 300 MG TABLET PO SCH (21:25)
[2022-07-11] MEDS: risperiDONE 3 MG TABLET PO SCH (21:25)
[2022-07-11] MEDS: ATORVASTATIN CA 10 MG TABLET (FP) PO SCH (21:25)
[2022-07-11] MEDS: THIAMINE HCL 100 MG TABLET (FP) PO SCH (21:25)
[2022-07-11] MEDS: MELATONIN 5 MG TABLETS PO SCH (21:26)
[2022-07-11] MEDS: INSULIN (LEVEMIR) 100 UNITS/ML UNITS SQ SCH (21:33)
[2022-07-11] MEDS: MAG HYDROX/AL HYDROX/SIMETH 30 ML UNIT-DOSE CUP PO PRN (23:09)
[2022-07-12] MEDS: metFORMIN HCL 500 MG TABLET (FP) PO SCH ×2 (07:33→16:28)
[2022-07-12] MEDS: LEVOTHYROXINE NA 100 MCG TABLET (FP) PO SCH (07:33)
[2022-07-12] MEDS: GABAPENTIN 400 MG CAPSULE PO SCH ×2 (10:17→21:28)
[2022-07-12] MEDS: NICOTINE 21 MG/24 HOURS TOPICAL PATCH TD SCH (10:17)
[2022-07-12] MEDS: ASPIRIN 81 MG CHEWABLE TABLETS PO SCH (10:17)
[2022-07-12] MEDS: QUEtiapine FUMARATE 50 MG TABLET PO SCH (10:17)
[2022-07-12] MEDS: METOPROLOL TARTRATE 25 MG TABLET (FP) PO SCH ×2 (10:17→21:28)
[2022-07-12] MEDS: PRENATAL VITAMINS W/ FOLIC ACID TABLET (FP) PO SCH (10:17)
[2022-07-12] MEDS: NICOTINE 10 MG CARTRIDGE (INHALER) IH PRN (10:18)
[2022-07-12] MEDS: ATORVASTATIN CA 10 MG TABLET (FP) PO SCH (21:28)
[2022-07-12] MEDS: risperiDONE 3 MG TABLET PO SCH (21:28)
[2022-07-12] MEDS: THIAMINE HCL 100 MG TABLET (FP) PO SCH (21:28)
[2022-07-12] MEDS: QUEtiapine FUMARATE 300 MG TABLET PO SCH (21:28)
[2022-07-12] MEDS: MELATONIN 5 MG TABLETS PO SCH (21:29)
[2022-07-12] MEDS: MAG HYDROX/AL HYDROX/SIMETH 30 ML UNIT-DOSE CUP PO PRN (21:30)
[2022-07-12] MEDS: INSULIN (LEVEMIR) 100 UNITS/ML UNITS SQ SCH (21:31)
[2022-07-13] MEDS: LEVOTHYROXINE NA 100 MCG TABLET (FP) PO SCH (06:32)
[2022-07-13] MEDS: metFORMIN HCL 500 MG TABLET (FP) PO SCH ×2 (06:32→16:33)
[2022-07-13] MEDS: QUEtiapine FUMARATE 50 MG TABLET PO SCH (10:23)
[2022-07-13] MEDS: GABAPENTIN 400 MG CAPSULE PO SCH ×2 (10:23→21:34)
[2022-07-13] MEDS: METOPROLOL TARTRATE 25 MG TABLET (FP) PO SCH ×2 (10:23→21:33)
[2022-07-13] MEDS: ASPIRIN 81 MG CHEWABLE TABLETS PO SCH (10:23)
[2022-07-13] MEDS: PRENATAL VITAMINS W/ FOLIC ACID TABLET (FP) PO SCH (10:24)
[2022-07-13] MEDS: NICOTINE 21 MG/24 HOURS TOPICAL PATCH TD SCH (10:24)
[2022-07-13] MEDS: NICOTINE 10 MG CARTRIDGE (INHALER) IH PRN (12:39)
[2022-07-13] MEDS: MAG HYDROX/AL HYDROX/SIMETH 30 ML UNIT-DOSE CUP PO PRN ×2 (14:19→21:39)
[2022-07-13] MEDS: QUEtiapine FUMARATE 300 MG TABLET PO SCH (21:33)
[2022-07-13] MEDS: MELATONIN 5 MG TABLETS PO SCH (21:34)
[2022-07-13] MEDS: ATORVASTATIN CA 10 MG TABLET (FP) PO SCH (21:34)
[2022-07-13] MEDS: risperiDONE 3 MG TABLET PO SCH (21:34)
[2022-07-13] MEDS: THIAMINE HCL 100 MG TABLET (FP) PO SCH (21:34)
[2022-07-13] MEDS: INSULIN (LEVEMIR) 100 UNITS/ML UNITS SQ SCH (21:54)
[2022-07-14] MEDS: metFORMIN HCL 500 MG TABLET (FP) PO SCH ×2 (06:51→16:40)
[2022-07-14] MEDS: LEVOTHYROXINE NA 100 MCG TABLET (FP) PO SCH (06:51)
[2022-07-14 07:14] VITALS: RESP 18
[2022-07-14] MEDS: METOPROLOL TARTRATE 25 MG TABLET (FP) PO SCH ×2 (10:25→21:32)
[2022-07-14] MEDS: PRENATAL VITAMINS W/ FOLIC ACID TABLET (FP) PO SCH (10:25)
[2022-07-14] MEDS: ASPIRIN 81 MG CHEWABLE TABLETS PO SCH (10:26)
[2022-07-14] MEDS: QUEtiapine FUMARATE 50 MG TABLET PO SCH (10:26)
[2022-07-14] MEDS: GABAPENTIN 400 MG CAPSULE PO SCH ×2 (10:26→21:32)
[2022-07-14] MEDS: NICOTINE 21 MG/24 HOURS TOPICAL PATCH TD SCH (10:27)
[2022-07-14] MEDS: risperiDONE 3 MG TABLET PO SCH (21:32)
[2022-07-14] MEDS: ATORVASTATIN CA 10 MG TABLET (FP) PO SCH (21:32)
[2022-07-14] MEDS: MELATONIN 5 MG TABLETS PO SCH (21:32)
[2022-07-14] MEDS: QUEtiapine FUMARATE 300 MG TABLET PO SCH (21:32)
[2022-07-14] MEDS: INSULIN (LEVEMIR) 100 UNITS/ML UNITS SQ SCH (21:32)
[2022-07-14] MEDS: THIAMINE HCL 100 MG TABLET (FP) PO SCH (21:33)
[2022-07-15] MEDS: metFORMIN HCL 500 MG TABLET (FP) PO SCH ×2 (06:27→16:56)
[2022-07-15] MEDS: LEVOTHYROXINE NA 100 MCG TABLET (FP) PO SCH (06:27)
[2022-07-15] MEDS: PRENATAL VITAMINS W/ FOLIC ACID TABLET (FP) PO SCH (10:19)
[2022-07-15] MEDS: NICOTINE 21 MG/24 HOURS TOPICAL PATCH TD SCH (10:19)
[2022-07-15] MEDS: METOPROLOL TARTRATE 25 MG TABLET (FP) PO SCH ×2 (10:20→21:11)
[2022-07-15] MEDS: GABAPENTIN 400 MG CAPSULE PO SCH ×2 (10:20→21:10)
[2022-07-15] MEDS: QUEtiapine FUMARATE 50 MG TABLET PO SCH (10:20)
[2022-07-15] MEDS: ASPIRIN 81 MG CHEWABLE TABLETS PO SCH (10:20)
[2022-07-15] MEDS: MAG HYDROX/AL HYDROX/SIMETH 30 ML UNIT-DOSE CUP PO PRN (16:58)
[2022-07-15] MEDS: NICOTINE 10 MG CARTRIDGE (INHALER) IH PRN (19:03)
[2022-07-15] MEDS: risperiDONE 3 MG TABLET PO SCH (21:10)
[2022-07-15] MEDS: THIAMINE HCL 100 MG TABLET (FP) PO SCH (21:11)
[2022-07-15] MEDS: QUEtiapine FUMARATE 300 MG TABLET PO SCH (21:11)
[2022-07-15] MEDS: ATORVASTATIN CA 10 MG TABLET (FP) PO SCH (21:11)
[2022-07-15] MEDS: INSULIN (LEVEMIR) 100 UNITS/ML UNITS SQ SCH (21:56)
[2022-07-15] MEDS: MELATONIN 5 MG TABLETS PO SCH (21:57)
[2022-07-16] MEDS: LEVOTHYROXINE NA 100 MCG TABLET (FP) PO SCH (06:22)
[2022-07-16] MEDS: metFORMIN HCL 500 MG TABLET (FP) PO SCH ×2 (07:47→16:42)
[2022-07-16] MEDS: PRENATAL VITAMINS W/ FOLIC ACID TABLET (FP) PO SCH (10:47)
[2022-07-16] MEDS: ASPIRIN 81 MG CHEWABLE TABLETS PO SCH (10:48)
[2022-07-16] MEDS: METOPROLOL TARTRATE 25 MG TABLET (FP) PO SCH ×2 (10:48→21:33)
[2022-07-16] MEDS: GABAPENTIN 400 MG CAPSULE PO SCH ×2 (10:48→21:33)
[2022-07-16] MEDS: QUEtiapine FUMARATE 50 MG TABLET PO SCH (10:48)
[2022-07-16] MEDS: NICOTINE 21 MG/24 HOURS TOPICAL PATCH TD SCH (10:49)
[2022-07-16] MEDS: MAG HYDROX/AL HYDROX/SIMETH 30 ML UNIT-DOSE CUP PO PRN ×2 (14:32→23:43)
[2022-07-16] MEDS: THIAMINE HCL 100 MG TABLET (FP) PO SCH (21:32)
[2022-07-16] MEDS: NICOTINE 10 MG CARTRIDGE (INHALER) IH PRN (21:32)
[2022-07-16] MEDS: risperiDONE 3 MG TABLET PO SCH (21:33)
[2022-07-16] MEDS: QUEtiapine FUMARATE 300 MG TABLET PO SCH (21:33)
[2022-07-16] MEDS: ATORVASTATIN CA 10 MG TABLET (FP) PO SCH (21:33)
[2022-07-16] MEDS: MELATONIN 5 MG TABLETS PO SCH (21:33)
[2022-07-16] MEDS: INSULIN (LEVEMIR) 100 UNITS/ML UNITS SQ SCH (21:38)
[2022-07-17] MEDS: LEVOTHYROXINE NA 100 MCG TABLET (FP) PO SCH (06:32)
[2022-07-17] MEDS: metFORMIN HCL 500 MG TABLET (FP) PO SCH ×2 (06:32→17:17)
[2022-07-17] MEDS: PRENATAL VITAMINS W/ FOLIC ACID TABLET (FP) PO SCH (10:24)
[2022-07-17] MEDS: METOPROLOL TARTRATE 25 MG TABLET (FP) PO SCH ×2 (10:24→21:42)
[2022-07-17] MEDS: QUEtiapine FUMARATE 50 MG TABLET PO SCH (10:24)
[2022-07-17] MEDS: ASPIRIN 81 MG CHEWABLE TABLETS PO SCH (10:24)
[2022-07-17] MEDS: GABAPENTIN 400 MG CAPSULE PO SCH ×2 (10:24→21:42)
[2022-07-17] MEDS: NICOTINE 21 MG/24 HOURS TOPICAL PATCH TD SCH (10:25)
[2022-07-17] MEDS: MAG HYDROX/AL HYDROX/SIMETH 30 ML UNIT-DOSE CUP PO PRN (19:40)
[2022-07-17] MEDS: MELATONIN 5 MG TABLETS PO SCH (21:39)
[2022-07-17] MEDS: QUEtiapine FUMARATE 300 MG TABLET PO SCH (21:39)
[2022-07-17] MEDS: risperiDONE 3 MG TABLET PO SCH (21:39)
[2022-07-17] MEDS: ATORVASTATIN CA 10 MG TABLET (FP) PO SCH (21:41)
[2022-07-17] MEDS: THIAMINE HCL 100 MG TABLET (FP) PO SCH (21:42)
[2022-07-17] MEDS: INSULIN (LEVEMIR) 100 UNITS/ML UNITS SQ SCH (21:46)
[2022-07-18] MEDS: LEVOTHYROXINE NA 100 MCG TABLET (FP) PO SCH (06:40)
[2022-07-18] MEDS: metFORMIN HCL 500 MG TABLET (FP) PO SCH ×2 (06:40→16:52)
[2022-07-18] MEDS: PRENATAL VITAMINS W/ FOLIC ACID TABLET (FP) PO SCH (10:11)
[2022-07-18] MEDS: METOPROLOL TARTRATE 25 MG TABLET (FP) PO SCH ×2 (10:12→21:31)
[2022-07-18] MEDS: ASPIRIN 81 MG CHEWABLE TABLETS PO SCH (10:12)
[2022-07-18] MEDS: QUEtiapine FUMARATE 50 MG TABLET PO SCH (10:12)
[2022-07-18] MEDS: GABAPENTIN 400 MG CAPSULE PO SCH ×2 (10:12→21:31)
[2022-07-18] MEDS: NICOTINE 21 MG/24 HOURS TOPICAL PATCH TD SCH (10:13)
[2022-07-18] MEDS: MAG HYDROX/AL HYDROX/SIMETH 30 ML UNIT-DOSE CUP PO PRN ×2 (10:14→21:31)
[2022-07-18] MEDS: MELATONIN 5 MG TABLETS PO SCH (21:31)
[2022-07-18] MEDS: risperiDONE 3 MG TABLET PO SCH (21:31)
[2022-07-18] MEDS: THIAMINE HCL 100 MG TABLET (FP) PO SCH (21:31)
[2022-07-18] MEDS: ATORVASTATIN CA 10 MG TABLET (FP) PO SCH (21:31)
[2022-07-18] MEDS: QUEtiapine FUMARATE 300 MG TABLET PO SCH (21:31)
[2022-07-18] MEDS: INSULIN (LEVEMIR) 100 UNITS/ML UNITS SQ SCH (21:32)
[2022-07-19] MEDS: LEVOTHYROXINE NA 100 MCG TABLET (FP) PO SCH (06:31)
[2022-07-19] MEDS: metFORMIN HCL 500 MG TABLET (FP) PO SCH (06:31)
[2022-07-19 07:15] VITALS: TEMP 96.4
[2022-07-19] MEDS: PRENATAL VITAMINS W/ FOLIC ACID TABLET (FP) PO SCH (09:03)
[2022-07-19] MEDS: NICOTINE 21 MG/24 HOURS TOPICAL PATCH TD SCH (09:04)
[2022-07-19] MEDS: ASPIRIN 81 MG CHEWABLE TABLETS PO SCH (09:04)
[2022-07-19] MEDS: METOPROLOL TARTRATE 25 MG TABLET (FP) PO SCH (09:04)
[2022-07-19] MEDS: GABAPENTIN 400 MG CAPSULE PO SCH (09:04)
[2022-07-19] MEDS: QUEtiapine FUMARATE 50 MG TABLET PO SCH (09:04)
[2022-07-19 10:45] VITALS: BP 140/72; PULSE 70
== END 2022-07-19 09:43 | disposition home or self-care (01) | DRG 895 ==
LOC: YASAS 14:46 → Y5N 20:26
PROVIDERS: ADMIT Allergy & Immunology; ATTEND Psychiatry & Neurology Pain Medicine
PROC: HZ42ZZZ Group Counseling for Substance Abuse Treatment, Cognitive-Behavioral (ICD-10-PCS; principal; 2022-07-08)
DX: F10.20 Alcohol dependence, uncomplicated (principal); F19.280 Other psychoactive substance dependence with psychoactive substance-induced anxiety disorder; F19.282 Other psychoactive substance dependence with psychoactive substance-induced sleep disorder; F12.20 Cannabis dependence, uncomplicated; F17.210 Nicotine dependence, cigarettes, uncomplicated; F19.24 Other psychoactive substance dependence with psychoactive substance-induced mood disorder; F31.9 Bipolar disorder, unspecified; I25.10 Atherosclerotic heart disease of native coronary artery without angina pectoris; I10 Essential (primary) hypertension; Z95.5 Presence of coronary angioplasty implant and graft; J43.9 Emphysema, unspecified; E03.9 Hypothyroidism, unspecified; E78.00 Pure hypercholesterolemia, unspecified; M79.2 Neuralgia and neuritis, unspecified; E11.9 Type 2 diabetes mellitus without complications; Z79.84 Long term (current) use of oral hypoglycemic drugs; Z88.8 Allergy status to other drugs, medicaments and biological substances
CPT/HCPCS: 36415; 80053; 81003; 82962; 86780; C9803-CS; U0003; U0005

== ENCOUNTER 2022-11-08 12:16 | Inpatient (IN) | payer MEDICARE, OTHER ==
[2022-11-08] MEDS ORDERED: NICOTINE 10 MG CARTRIDGE (INHALER) IH PRN (13:35)
[2022-11-08] MEDS ORDERED: DICYCLOMINE HCL 10 MG CAPSULE PO PRN (13:35)
[2022-11-08] MEDS ORDERED: MAGNESIUM HYDROX 2400MG/30ML ORAL SUSPENSION 30 ML CUP PO PRN (13:35)
[2022-11-08] MEDS ORDERED: LOPERAMIDE HCL 2 MG CAPSULE PO PRN (13:35)
[2022-11-08] MEDS ORDERED: IBUPROFEN 600 MG TABLET (FP) PO PRN (13:35)
[2022-11-08] MEDS ORDERED: ACETAMINOPHEN 325 MG TABLET (FP) PO PRN ×2 (13:35)
[2022-11-08] MEDS ORDERED: ONDANSETRON *ODT* 4 MG TABLET SL PRN (13:35)
[2022-11-08] MEDS ORDERED: MAG HYDROX/AL HYDROX/SIMETH 30 ML UNIT-DOSE CUP PO PRN (13:35)
[2022-11-08] MEDS ORDERED: LORazepam 2 MG TABLET PO ONE (13:35)
[2022-11-08] MEDS ORDERED: BISMUTH SUBSALICYLATE 262 MG/15 ML BTL PO PRN (13:35)
[2022-11-08] MEDS ORDERED: IBUPROFEN 400 MG TABLET (FP) PO PRN (13:35)
[2022-11-08] MEDS ORDERED: METHOCARBAMOL 500 MG TABLET PO PRN (13:35)
[2022-11-08] MEDS ORDERED: NALOXONE HCL (KLOXXADO) 8 MG SPRAY NS PRN (13:35)
[2022-11-08] MEDS ORDERED: POLYETHYLENE GLYCOL (HEALTHYLAX) 3350 17 GM PACKET PO PRN (13:35)
[2022-11-08] MEDS ORDERED: hydrOXYzine PAMOATE 25 MG CAPSULE (FP) PO PRN (13:35)
[2022-11-08] MEDS ORDERED: LORazepam 1 MG TABLET PO PRN (13:35)
[2022-11-08] MEDS ORDERED: BENZOCAINE/MENTHOL (CHLORASEPTIC ) LOZENGE MM PRN (13:35)
[2022-11-08] MEDS ORDERED: ALBUTEROL SO4 HFA INHALER IH PRN (13:38)
[2022-11-08 13:39] VITALS: BMI 30.9
[2022-11-08] MEDS ORDERED: LORazepam 2 MG TABLET ONE (14:59)
[2022-11-08] MEDS: NICOTINE 21 MG/24 HOURS TOPICAL PATCH TD SCH (15:45)
[2022-11-08] MEDS: PRENATAL VITAMINS W/ FOLIC ACID TABLET (FP) PO SCH (15:45)
[2022-11-08] MEDS: LORazepam 2 MG TABLET PO SCH ×2 (17:57→22:33)
[2022-11-08 19:49] LABS: HEMATOCRIT 42.4 % (32.4-45.2); HEMOGLOBIN 13.9 GM/dL (10.7-15.3); MCH 27.5 pg (25.7-33.7); MCHC 32.9 g/dl (32.0-36.0); MEAN CELL VOLUME 83.7 fl (80-96); PLATELET COUNT 354 10^3/uL (134-434); RBC 5.06 M/mm3 (3.60-5.2); RDW 15.5 % (11.6-15.6); WHITE BLOOD COUNT 6.7 K/mm3 (4.0-10.0)
[2022-11-08 19:53] LABS: CALCIUM 9.4 mg/dL (8.5-10.1)
[2022-11-08 19:54] LABS: ALBUMIN 3.7 g/dl (3.4-5.0); BLOOD UREA NITROGEN 6.8 mg/dL (7-18)
[2022-11-08 19:57] LABS: CREATININE 0.8 mg/dL (0.55-1.3)
[2022-11-08 19:59] LABS: BILIRUBIN,TOTAL 0.3 mg/dL (0.2-1); TOT PROT 7.1 g/dl (6.4-8.2)
[2022-11-08] MEDS: INSULIN (LEVEMIR) 100 UNITS/ML UNITS SQ SCH (22:29)
[2022-11-08] MEDS: ATORVASTATIN CA 10 MG TABLET (FP) PO SCH (22:32)
[2022-11-08] MEDS: METOPROLOL TARTRATE 50 MG TABLET (FP) PO SCH (22:33)
[2022-11-08] MEDS: MELATONIN 5 MG TABLETS PO SCH (22:35)
[2022-11-08] MEDS: THIAMINE HCL 100 MG TABLET (FP) PO SCH (22:37)
[2022-11-09] MEDS: LORazepam 2 MG TABLET PO SCH ×4 (05:56→22:07)
[2022-11-09] MEDS: LEVOTHYROXINE NA 100 MCG TABLET (FP) PO SCH (06:26)
[2022-11-09] MEDS: METOPROLOL TARTRATE 50 MG TABLET (FP) PO SCH ×2 (10:14→22:07)
[2022-11-09] MEDS: PRENATAL VITAMINS W/ FOLIC ACID TABLET (FP) PO SCH (10:14)
[2022-11-09] MEDS: ASPIRIN 81 MG CHEWABLE TABLETS PO SCH (10:15)
[2022-11-09] MEDS: NICOTINE 21 MG/24 HOURS TOPICAL PATCH TD SCH (10:16)
[2022-11-09] MEDS: GABAPENTIN 100 MG CAPSULE PO SCH (22:06)
[2022-11-09] MEDS: QUEtiapine FUMARATE 200 MG TABLET PO SCH (22:07)
[2022-11-09] MEDS: risperiDONE 1 MG TABLET PO SCH (22:07)
[2022-11-09] MEDS: ATORVASTATIN CA 10 MG TABLET (FP) PO SCH (22:07)
[2022-11-09] MEDS: MELATONIN 5 MG TABLETS PO SCH (22:08)
[2022-11-09] MEDS: THIAMINE HCL 100 MG TABLET (FP) PO SCH (22:09)
[2022-11-09] MEDS: INSULIN (LEVEMIR) 100 UNITS/ML UNITS SQ SCH (22:12)
[2022-11-10] MEDS: LORazepam 1 MG TABLET PO SCH ×4 (06:06→22:00)
[2022-11-10] MEDS: LEVOTHYROXINE NA 100 MCG TABLET (FP) PO SCH (06:06)
[2022-11-10] MEDS: risperiDONE 1 MG TABLET PO SCH ×2 (10:18→22:00)
[2022-11-10] MEDS: METOPROLOL TARTRATE 50 MG TABLET (FP) PO SCH ×2 (10:18→22:00)
[2022-11-10] MEDS: GABAPENTIN 100 MG CAPSULE PO SCH ×2 (10:19→22:00)
[2022-11-10] MEDS: NICOTINE 21 MG/24 HOURS TOPICAL PATCH TD SCH (10:19)
[2022-11-10] MEDS: PRENATAL VITAMINS W/ FOLIC ACID TABLET (FP) PO SCH (10:19)
[2022-11-10] MEDS: ASPIRIN 81 MG CHEWABLE TABLETS PO SCH (10:19)
[2022-11-10] MEDS: THIAMINE HCL 100 MG TABLET (FP) PO SCH (22:00)
[2022-11-10] MEDS: MELATONIN 5 MG TABLETS PO SCH (22:00)
[2022-11-10] MEDS: QUEtiapine FUMARATE 200 MG TABLET PO SCH (22:00)
[2022-11-10] MEDS: ATORVASTATIN CA 10 MG TABLET (FP) PO SCH (22:00)
[2022-11-10] MEDS: INSULIN (LEVEMIR) 100 UNITS/ML UNITS SQ SCH (22:01)
[2022-11-11] MEDS ORDERED: LORazepam 0.5 MG TABLET PO PRN
[2022-11-11] MEDS: LORazepam 0.5 MG TABLET PO SCH ×4 (06:15→22:35)
[2022-11-11] MEDS: LEVOTHYROXINE NA 100 MCG TABLET (FP) PO SCH (06:15)
[2022-11-11] MEDS: GABAPENTIN 100 MG CAPSULE PO SCH ×2 (10:20→22:38)
[2022-11-11] MEDS: ASPIRIN 81 MG CHEWABLE TABLETS PO SCH (10:21)
[2022-11-11] MEDS: METOPROLOL TARTRATE 50 MG TABLET (FP) PO SCH ×2 (10:21→22:35)
[2022-11-11] MEDS: risperiDONE 1 MG TABLET PO SCH ×2 (10:21→22:35)
[2022-11-11] MEDS: PRENATAL VITAMINS W/ FOLIC ACID TABLET (FP) PO SCH (10:28)
[2022-11-11] MEDS: NICOTINE 21 MG/24 HOURS TOPICAL PATCH TD SCH (10:28)
[2022-11-11] MEDS: MELATONIN 5 MG TABLETS PO SCH (22:35)
[2022-11-11] MEDS: THIAMINE HCL 100 MG TABLET (FP) PO SCH (22:35)
[2022-11-11] MEDS: ATORVASTATIN CA 10 MG TABLET (FP) PO SCH (22:35)
[2022-11-11] MEDS: INSULIN (LEVEMIR) 100 UNITS/ML UNITS SQ SCH (22:35)
[2022-11-11] MEDS: QUEtiapine FUMARATE 200 MG TABLET PO SCH (22:35)
[2022-11-12] MEDS ORDERED: LORazepam 0.5 MG TABLET PO ONE (05:00)
[2022-11-12] MEDS: LEVOTHYROXINE NA 100 MCG TABLET (FP) PO SCH (06:02)
[2022-11-12 08:54] VITALS: RESP 18
[2022-11-12] MEDS: PRENATAL VITAMINS W/ FOLIC ACID TABLET (FP) PO SCH (10:23)
[2022-11-12] MEDS: ASPIRIN 81 MG CHEWABLE TABLETS PO SCH (10:24)
[2022-11-12] MEDS: NICOTINE 21 MG/24 HOURS TOPICAL PATCH TD SCH (10:24)
[2022-11-12] MEDS: GABAPENTIN 100 MG CAPSULE PO SCH (10:24)
[2022-11-12] MEDS: risperiDONE 1 MG TABLET PO SCH (10:24)
[2022-11-12] MEDS: METOPROLOL TARTRATE 50 MG TABLET (FP) PO SCH (10:24)
[2022-11-12 13:07] VITALS: BP 149/82; PULSE 73; TEMP 96.9
== END 2022-11-12 13:43 | disposition home or self-care (01) | DRG 897 ==
LOC: YASAS 12:16 → Y3N 14:19
PROVIDERS: ADMIT Allergy & Immunology; ATTEND Surgery
PROC: HZ2ZZZZ Detoxification Services for Substance Abuse Treatment (ICD-10-PCS; principal; 2022-11-08)
DX: F10.230 Alcohol dependence with withdrawal, uncomplicated (principal); F19.282 Other psychoactive substance dependence with psychoactive substance-induced sleep disorder; F19.280 Other psychoactive substance dependence with psychoactive substance-induced anxiety disorder; F12.20 Cannabis dependence, uncomplicated; F17.210 Nicotine dependence, cigarettes, uncomplicated; F19.24 Other psychoactive substance dependence with psychoactive substance-induced mood disorder; F31.9 Bipolar disorder, unspecified; I10 Essential (primary) hypertension; J43.9 Emphysema, unspecified; E11.9 Type 2 diabetes mellitus without complications; E78.5 Hyperlipidemia, unspecified; E03.9 Hypothyroidism, unspecified; I25.10 Atherosclerotic heart disease of native coronary artery without angina pectoris; M79.2 Neuralgia and neuritis, unspecified; Z79.4 Long term (current) use of insulin; Z79.84 Long term (current) use of oral hypoglycemic drugs; Z88.8 Allergy status to other drugs, medicaments and biological substances; Z95.5 Presence of coronary angioplasty implant and graft; Z91.51 Personal history of suicidal behavior; Z56.0 Unemployment, unspecified
CPT/HCPCS: 36415; 80053; 82140; 82962; 85027; 86780; C9803-CS; J2794; U0003; U0005

== ENCOUNTER 2023-03-08 13:28 | Inpatient (IN) | payer MEDICARE, OTHER ==
[2023-03-08 14:12] VITALS: BMI 32.5
[2023-03-08] MEDS ORDERED: ALBUTEROL SO4 HFA INHALER IH PRN (14:25)
[2023-03-08] MEDS ORDERED: BENZOCAINE/MENTHOL (CHLORASEPTIC ) LOZENGE MM PRN (14:33)
[2023-03-08] MEDS ORDERED: ALBUTEROL SO4 0.083% IH SOL 2.5 MG/3 ML VIAL.NEB. NEB PRN ×2 (14:33→15:03)
[2023-03-08] MEDS ORDERED: NICOTINE 10 MG CARTRIDGE (INHALER) IH PRN (14:33)
[2023-03-08] MEDS ORDERED: MAGNESIUM HYDROX 2400MG/30ML ORAL SUSPENSION 30 ML CUP PO PRN (14:33)
[2023-03-08] MEDS ORDERED: ACETAMINOPHEN 325 MG TABLET (FP) PO PRN (14:33)
[2023-03-08] MEDS ORDERED: DICYCLOMINE HCL 10 MG CAPSULE PO PRN (14:33)
[2023-03-08] MEDS ORDERED: LOPERAMIDE HCL 2 MG CAPSULE PO PRN (14:33)
[2023-03-08] MEDS ORDERED: BISMUTH SUBSALICYLATE 262 MG/15 ML BTL PO PRN (14:33)
[2023-03-08] MEDS ORDERED: IBUPROFEN 400 MG TABLET (FP) PO PRN (14:33)
[2023-03-08] MEDS ORDERED: hydrOXYzine PAMOATE 25 MG CAPSULE (FP) PO PRN (14:33)
[2023-03-08] MEDS ORDERED: ONDANSETRON *ODT* 4 MG TABLET SL PRN (14:33)
[2023-03-08] MEDS ORDERED: POLYETHYLENE GLYCOL (HEALTHYLAX) 3350 17 GM PACKET PO PRN (14:33)
[2023-03-08] MEDS ORDERED: IBUPROFEN 600 MG TABLET (FP) PO PRN (14:33)
[2023-03-08] MEDS ORDERED: BENZONATATE 200 MG CAPSULE PO PRN (14:33)
[2023-03-08] MEDS ORDERED: MELATONIN 5 MG TABLETS PO PRN (14:33)
[2023-03-08] MEDS ORDERED: P-EPHED 60MG/TRIPROLIDI 2.5MG TABLET PO PRN (14:33)
[2023-03-08] MEDS ORDERED: MAG HYDROX/AL HYDROX/SIMETH 30 ML UNIT-DOSE CUP PO PRN (14:33)
[2023-03-08] MEDS ORDERED: guaiFENesin 600 MG TABLET.ER (FP) PO PRN (14:33)
[2023-03-08] MEDS: ASPIRIN 81 MG CHEWABLE TABLETS PO SCH (18:34)
[2023-03-08] MEDS: metFORMIN HCL 500 MG TABLET (FP) PO SCH (18:34)
[2023-03-08] MEDS: INSULIN SLIDING SCALE (NOVOLOG) 1 VIAL SQ SCH ×2 (18:39→22:29)
[2023-03-08] MEDS: QUEtiapine FUMARATE 300 MG TABLET PO SCH (22:29)
[2023-03-08] MEDS: ATORVASTATIN CA 10 MG TABLET (FP) PO SCH (22:30)
[2023-03-08] MEDS: THIAMINE HCL 100 MG TABLET (FP) PO SCH (22:30)
[2023-03-08] MEDS: risperiDONE 1 MG TABLET PO SCH (22:30)
[2023-03-08] MEDS: GABAPENTIN 400 MG CAPSULE PO SCH (22:30)
[2023-03-09] MEDS: metFORMIN HCL 500 MG TABLET (FP) PO SCH ×2 (06:19→17:00)
[2023-03-09] MEDS: LEVOTHYROXINE NA 100 MCG TABLET (FP) PO SCH (06:21)
[2023-03-09] MEDS: INSULIN SLIDING SCALE (NOVOLOG) 1 VIAL SQ SCH ×4 (06:55→22:40)
[2023-03-09 10:12] LABS: HEMATOCRIT 36.3 % (32.4-45.2); HEMOGLOBIN 13.1 GM/dL (10.7-15.3); MCH 29.6 pg (25.7-33.7); MCHC 36.1 g/dl (32.0-36.0); MEAN PLT VOLUME 8.5 fl (7.5-11.1); PLATELET COUNT 274 10^3/uL (134-434); RBC 4.43 M/mm3 (3.60-5.2); RDW 14.2 % (11.6-15.6); WHITE BLOOD COUNT 5.3 K/mm3 (4.0-10.0)
[2023-03-09 10:19] LABS: CALCIUM 8.8 mg/dL (8.5-10.1)
[2023-03-09 10:20] LABS: ALBUMIN 3.1 g/dl (3.4-5.0); BLOOD UREA NITROGEN 9.2 mg/dL (7-18)
[2023-03-09 10:22] LABS: CREATININE 0.7 mg/dL (0.55-1.3)
[2023-03-09 10:23] LABS: BILIRUBIN,TOTAL 0.7 mg/dL (0.2-1); TOT PROT 6.4 g/dl (6.4-8.2)
[2023-03-09] MEDS: GABAPENTIN 400 MG CAPSULE PO SCH ×2 (10:35→22:38)
[2023-03-09] MEDS: PRENATAL VITAMINS W/ FOLIC ACID TABLET (FP) PO SCH (10:35)
[2023-03-09] MEDS: QUEtiapine FUMARATE 50 MG TABLET PO SCH (10:35)
[2023-03-09] MEDS: ASPIRIN 81 MG CHEWABLE TABLETS PO SCH (10:35)
[2023-03-09] MEDS ORDERED: INSULIN (NOVOLOG) ASPART 100 UNITS/ML 10ML VIAL ONE (20:34)
[2023-03-09] MEDS: risperiDONE 1 MG TABLET PO SCH (22:37)
[2023-03-09] MEDS: THIAMINE HCL 100 MG TABLET (FP) PO SCH (22:37)
[2023-03-09] MEDS: QUEtiapine FUMARATE 300 MG TABLET PO SCH (22:37)
[2023-03-09] MEDS: ATORVASTATIN CA 10 MG TABLET (FP) PO SCH (22:37)
[2023-03-10] MEDS: metFORMIN HCL 500 MG TABLET (FP) PO SCH (06:41)
[2023-03-10] MEDS: LEVOTHYROXINE NA 100 MCG TABLET (FP) PO SCH (06:41)
[2023-03-10] MEDS: INSULIN SLIDING SCALE (NOVOLOG) 1 VIAL SQ SCH ×2 (06:41→11:35)
[2023-03-10 07:15] VITALS: RESP 18; TEMP 97.8
[2023-03-10 07:39] VITALS: BP 113/73; PULSE 88
[2023-03-10] MEDS: GABAPENTIN 400 MG CAPSULE PO SCH (09:36)
[2023-03-10] MEDS: PRENATAL VITAMINS W/ FOLIC ACID TABLET (FP) PO SCH (09:36)
[2023-03-10] MEDS: ASPIRIN 81 MG CHEWABLE TABLETS PO SCH (09:36)
[2023-03-10] MEDS: QUEtiapine FUMARATE 50 MG TABLET PO SCH (09:36)
== END 2023-03-10 11:55 | disposition home or self-care (01) | DRG 897 ==
LOC: YASAS 13:28 → Y6N 16:25
PROVIDERS: ADMIT Allergy & Immunology; ATTEND Surgery
PROC: HZ2ZZZZ Detoxification Services for Substance Abuse Treatment (ICD-10-PCS; principal; 2023-03-08)
DX: F10.230 Alcohol dependence with withdrawal, uncomplicated (principal); F19.282 Other psychoactive substance dependence with psychoactive substance-induced sleep disorder; F17.210 Nicotine dependence, cigarettes, uncomplicated; F25.0 Schizoaffective disorder, bipolar type; E78.5 Hyperlipidemia, unspecified; E03.9 Hypothyroidism, unspecified; J44.9 Chronic obstructive pulmonary disease, unspecified; I25.10 Atherosclerotic heart disease of native coronary artery without angina pectoris; I10 Essential (primary) hypertension; Z95.5 Presence of coronary angioplasty implant and graft; E11.9 Type 2 diabetes mellitus without complications; Z79.84 Long term (current) use of oral hypoglycemic drugs; Z88.8 Allergy status to other drugs, medicaments and biological substances
CPT/HCPCS: 36415; 80053; 82962; 85027; 86780; C9803-CS; U0003; U0005

== ENCOUNTER 2023-07-05 19:10 | Inpatient (IN) | payer MEDICARE, OTHER ==
[2023-07-05 19:54] VITALS: BMI 29.2
[2023-07-05] MEDS ORDERED: NALOXONE HCL (KLOXXADO) 8 MG SPRAY NS PRN (22:03)
[2023-07-05] MEDS ORDERED: POLYETHYLENE GLYCOL (HEALTHYLAX) 3350 17 GM PACKET PO PRN (22:03)
[2023-07-05] MEDS ORDERED: IBUPROFEN 400 MG TABLET (FP) PO PRN (22:03)
[2023-07-05] MEDS ORDERED: LOPERAMIDE HCL 2 MG CAPSULE PO PRN (22:03)
[2023-07-05] MEDS ORDERED: guaiFENesin 600 MG TABLET.ER (FP) PO PRN (22:03)
[2023-07-05] MEDS ORDERED: IBUPROFEN 600 MG TABLET (FP) PO PRN (22:03)
[2023-07-05] MEDS ORDERED: NALOXONE HCL 0.4 MG/ML VIAL IM PRN (22:03)
[2023-07-05] MEDS ORDERED: BENZOCAINE/MENTHOL (CHLORASEPTIC ) LOZENGE MM PRN (22:03)
[2023-07-05] MEDS ORDERED: COLLOIDAL OATMEAL 1 BAR EACH TP PRN (22:03)
[2023-07-05] MEDS ORDERED: BENZONATATE 200 MG CAPSULE PO PRN (22:03)
[2023-07-05] MEDS ORDERED: AMMONIUM LACTATE 12% LOTION 225 GM BOTTLE TP PRN (22:03)
[2023-07-05] MEDS ORDERED: MAGNESIUM HYDROX 2400MG/30ML ORAL SUSPENSION 30 ML CUP PO PRN (22:03)
[2023-07-05] MEDS ORDERED: ACETAMINOPHEN 325 MG TABLET (FP) PO PRN (22:03)
[2023-07-05] MEDS ORDERED: TUBERCULIN PPD 5 TU/0.1ML SYRINGE (IN PATIENT USE ONLY) ID ONE (23:00)
[2023-07-06] MEDS ORDERED: TUBERCULIN PPD 5 TU/0.1ML VIAL ID ONE (00:21)
[2023-07-06] MEDS: hydrOXYzine PAMOATE 25 MG CAPSULE (FP) PO PRN (00:32)
[2023-07-06] MEDS: MELATONIN 5 MG TABLETS PO SCH ×2 (00:39→21:12)
[2023-07-06 09:32] LABS: HEMATOCRIT 35.7 % (32.4-45.2); HEMOGLOBIN 11.9 GM/dL (10.7-15.3); MCH 27.2 pg (25.7-33.7); MCHC 33.4 g/dl (32.0-36.0); MEAN CELL VOLUME 81.5 fl (80-96); MEAN PLT VOLUME 9.8 fl (7.5-11.1); PLATELET COUNT 309 10^3/uL (134-434); RBC 4.37 M/mm3 (3.60-5.2); RDW 15.1 % (11.6-15.6); WHITE BLOOD COUNT 5.9 K/mm3 (4.0-10.0)
[2023-07-06 09:44] LABS: POTASSIUM 4.3 mmol/L (3.5-5.1)
[2023-07-06 09:58] LABS: URINE APPEARANCE CLEAR; URINE BILIRUBIN NEGATIVE (NEGATIVE); URINE COLOR YELLOW; URINE GLUCOSE (UA) NEGATIVE (NEGATIVE); URINE KETONE NEGATIVE (NEGATIVE); URINE LEUK ESTERASE NEGATIVE (NEGATIVE); URINE NITRITE NEGATIVE (NEGATIVE); URINE PROTEIN NEGATIVE (NEGATIVE); URINE UROBILINOGEN 0.2 mg/dL (0.2-1.0)
[2023-07-06 09:59] LABS: ALBUMIN 3.2 g/dl (3.4-5.0); BLOOD UREA NITROGEN 13.6 mg/dL (7-18)
[2023-07-06 10:02] LABS: BILIRUBIN,TOTAL 0.4 mg/dL (0.2-1); CREATININE 0.6 mg/dL (0.55-1.3)
[2023-07-06 10:03] LABS: TOT PROT 6.3 g/dl (6.4-8.2)
[2023-07-06] MEDS: PRENATAL VITAMINS W/ FOLIC ACID TABLET (FP) PO SCH (10:04)
[2023-07-06] MEDS: NICOTINE 7 MG/24 HOURS TOPICAL PATCH TD SCH (10:04)
[2023-07-06] MEDS: GABAPENTIN 400 MG CAPSULE PO SCH ×2 (10:04→21:12)
[2023-07-06 10:11] LABS: SYPHILIS W/ RPR CONF NON-REACTIVE (NONREACTIVE)
[2023-07-06] MEDS: risperiDONE 1 MG TABLET PO SCH (21:13)
[2023-07-06] MEDS: THIAMINE HCL 100 MG TABLET (FP) PO SCH (21:13)
[2023-07-06] MEDS: QUEtiapine FUMARATE 100 MG TABLET (FP) PO SCH (21:14)
[2023-07-07] MEDS: PRENATAL VITAMINS W/ FOLIC ACID TABLET (FP) PO SCH (09:24)
[2023-07-07] MEDS ORDERED: ALBUTEROL SO4 HFA INHALER IH PRN (09:24)
[2023-07-07] MEDS: GABAPENTIN 400 MG CAPSULE PO SCH ×2 (09:24→21:09)
[2023-07-07] MEDS: NICOTINE 7 MG/24 HOURS TOPICAL PATCH TD SCH (09:25)
[2023-07-07] MEDS: ASPIRIN 81 MG CHEWABLE TABLETS PO SCH (09:42)
[2023-07-07] MEDS: metFORMIN HCL 500 MG TABLET (FP) PO SCH (17:05)
[2023-07-07] MEDS: INSULIN SLIDING SCALE (NOVOLOG) 1 VIAL SQ SCH (17:06)
[2023-07-07] MEDS: MELATONIN 5 MG TABLETS PO SCH (21:08)
[2023-07-07] MEDS: QUEtiapine FUMARATE 100 MG TABLET (FP) PO SCH (21:09)
[2023-07-07] MEDS: risperiDONE 1 MG TABLET PO SCH (21:09)
[2023-07-07] MEDS: THIAMINE HCL 100 MG TABLET (FP) PO SCH (21:09)
[2023-07-07] MEDS: ATORVASTATIN CA 10 MG TABLET (FP) PO SCH (21:09)
[2023-07-08] MEDS: metFORMIN HCL 500 MG TABLET (FP) PO SCH ×2 (06:22→17:06)
[2023-07-08] MEDS: LEVOTHYROXINE NA 100 MCG TABLET (FP) PO SCH (06:22)
[2023-07-08] MEDS: INSULIN SLIDING SCALE (NOVOLOG) 1 VIAL SQ SCH ×2 (07:27→17:08)
[2023-07-08] MEDS: ASPIRIN 81 MG CHEWABLE TABLETS PO SCH (10:25)
[2023-07-08] MEDS: NICOTINE 7 MG/24 HOURS TOPICAL PATCH TD SCH (10:26)
[2023-07-08] MEDS: GABAPENTIN 400 MG CAPSULE PO SCH ×2 (10:26→21:37)
[2023-07-08] MEDS: PRENATAL VITAMINS W/ FOLIC ACID TABLET (FP) PO SCH (10:26)
[2023-07-08] MEDS: risperiDONE 1 MG TABLET PO SCH (21:37)
[2023-07-08] MEDS: THIAMINE HCL 100 MG TABLET (FP) PO SCH (21:37)
[2023-07-08] MEDS: ATORVASTATIN CA 10 MG TABLET (FP) PO SCH (21:37)
[2023-07-08] MEDS: MELATONIN 5 MG TABLETS PO SCH (21:43)
[2023-07-08] MEDS: ROSUVASTATIN CA 20 MG TABLET PO SCH (21:43)
[2023-07-08] MEDS: INSULIN (LEVEMIR) 100 UNITS/ML UNITS SQ SCH (21:43)
[2023-07-08] MEDS: QUEtiapine FUMARATE 100 MG TABLET (FP) PO SCH (22:07)
[2023-07-09] MEDS: INSULIN SLIDING SCALE (NOVOLOG) 1 VIAL SQ SCH ×2 (07:04→16:47)
[2023-07-09] MEDS: LEVOTHYROXINE NA 100 MCG TABLET (FP) PO SCH (07:04)
[2023-07-09] MEDS: metFORMIN HCL 500 MG TABLET (FP) PO SCH ×2 (07:04→16:46)
[2023-07-09] MEDS ORDERED: INSULIN (NOVOLOG) ASPART 100 UNITS/ML 10ML VIAL ONE (07:23)
[2023-07-09] MEDS: LOSARTAN POTASSIUM 25 MG TABLET PO SCH (10:43)
[2023-07-09] MEDS: ASPIRIN 81 MG CHEWABLE TABLETS PO SCH (10:43)
[2023-07-09] MEDS: GABAPENTIN 400 MG CAPSULE PO SCH ×2 (10:43→21:27)
[2023-07-09] MEDS: PRENATAL VITAMINS W/ FOLIC ACID TABLET (FP) PO SCH (10:43)
[2023-07-09] MEDS: NICOTINE 7 MG/24 HOURS TOPICAL PATCH TD SCH (10:44)
[2023-07-09] MEDS: THIAMINE HCL 100 MG TABLET (FP) PO SCH (21:24)
[2023-07-09] MEDS: QUEtiapine FUMARATE 100 MG TABLET (FP) PO SCH (21:26)
[2023-07-09] MEDS: MELATONIN 5 MG TABLETS PO SCH (21:27)
[2023-07-09] MEDS: risperiDONE 1 MG TABLET PO SCH (21:27)
[2023-07-09] MEDS: ATORVASTATIN CA 10 MG TABLET (FP) PO SCH (21:27)
[2023-07-09] MEDS: ROSUVASTATIN CA 20 MG TABLET PO SCH (21:28)
[2023-07-09] MEDS: INSULIN (LEVEMIR) 100 UNITS/ML UNITS SQ SCH (21:33)
[2023-07-10] MEDS: LEVOTHYROXINE NA 100 MCG TABLET (FP) PO SCH (06:28)
[2023-07-10] MEDS: metFORMIN HCL 500 MG TABLET (FP) PO SCH ×2 (06:28→17:00)
[2023-07-10] MEDS ORDERED: INSULIN (NOVOLOG) ASPART 100 UNITS/ML 10ML VIAL ONE (06:32)
[2023-07-10] MEDS: INSULIN SLIDING SCALE (NOVOLOG) 1 VIAL SQ SCH ×2 (07:37→16:59)
[2023-07-10] MEDS: ASPIRIN 81 MG CHEWABLE TABLETS PO SCH (10:07)
[2023-07-10] MEDS: GABAPENTIN 400 MG CAPSULE PO SCH ×2 (10:07→21:03)
[2023-07-10] MEDS: LOSARTAN POTASSIUM 25 MG TABLET PO SCH (10:07)
[2023-07-10] MEDS: PRENATAL VITAMINS W/ FOLIC ACID TABLET (FP) PO SCH (10:07)
[2023-07-10] MEDS: NICOTINE 7 MG/24 HOURS TOPICAL PATCH TD SCH (10:09)
[2023-07-10] MEDS: QUEtiapine FUMARATE 100 MG TABLET (FP) PO SCH (21:02)
[2023-07-10] MEDS: INSULIN (LEVEMIR) 100 UNITS/ML UNITS SQ SCH (21:02)
[2023-07-10] MEDS: ROSUVASTATIN CA 20 MG TABLET PO SCH (21:02)
[2023-07-10] MEDS: risperiDONE 1 MG TABLET PO SCH (21:03)
[2023-07-10] MEDS: THIAMINE HCL 100 MG TABLET (FP) PO SCH (21:03)
[2023-07-10] MEDS: ATORVASTATIN CA 10 MG TABLET (FP) PO SCH (21:03)
[2023-07-10] MEDS: MELATONIN 5 MG TABLETS PO SCH (21:03)
[2023-07-11] MEDS: metFORMIN HCL 500 MG TABLET (FP) PO SCH ×2 (06:44→16:29)
[2023-07-11] MEDS: INSULIN SLIDING SCALE (NOVOLOG) 1 VIAL SQ SCH ×2 (06:44→16:58)
[2023-07-11] MEDS: LEVOTHYROXINE NA 100 MCG TABLET (FP) PO SCH (06:44)
[2023-07-11] MEDS: ASPIRIN 81 MG CHEWABLE TABLETS PO SCH (09:48)
[2023-07-11] MEDS: LOSARTAN POTASSIUM 25 MG TABLET PO SCH (09:48)
[2023-07-11] MEDS: GABAPENTIN 400 MG CAPSULE PO SCH ×2 (09:48→21:02)
[2023-07-11] MEDS: NICOTINE 7 MG/24 HOURS TOPICAL PATCH TD SCH (09:50)
[2023-07-11] MEDS: PRENATAL VITAMINS W/ FOLIC ACID TABLET (FP) PO SCH (09:50)
[2023-07-11] MEDS: THIAMINE HCL 100 MG TABLET (FP) PO SCH (21:01)
[2023-07-11] MEDS: MELATONIN 5 MG TABLETS PO SCH (21:01)
[2023-07-11] MEDS: ATORVASTATIN CA 10 MG TABLET (FP) PO SCH (21:02)
[2023-07-11] MEDS: QUEtiapine FUMARATE 100 MG TABLET (FP) PO SCH (21:02)
[2023-07-11] MEDS: risperiDONE 1 MG TABLET PO SCH (21:02)
[2023-07-11] MEDS: ROSUVASTATIN CA 20 MG TABLET PO SCH (21:03)
[2023-07-11] MEDS: INSULIN (LEVEMIR) 100 UNITS/ML UNITS SQ SCH (21:37)
[2023-07-12] MEDS: metFORMIN HCL 500 MG TABLET (FP) PO SCH ×2 (07:05→16:24)
[2023-07-12] MEDS: LEVOTHYROXINE NA 100 MCG TABLET (FP) PO SCH (07:06)
[2023-07-12] MEDS: INSULIN SLIDING SCALE (NOVOLOG) 1 VIAL SQ SCH ×2 (07:06→17:00)
[2023-07-12] MEDS: ASPIRIN 81 MG CHEWABLE TABLETS PO SCH (10:01)
[2023-07-12] MEDS: PRENATAL VITAMINS W/ FOLIC ACID TABLET (FP) PO SCH (10:02)
[2023-07-12] MEDS: GABAPENTIN 400 MG CAPSULE PO SCH ×2 (10:02→21:01)
[2023-07-12] MEDS: NICOTINE 7 MG/24 HOURS TOPICAL PATCH TD SCH (10:02)
[2023-07-12] MEDS: LOSARTAN POTASSIUM 25 MG TABLET PO SCH (10:02)
[2023-07-12] MEDS ORDERED: INSULIN (NOVOLOG) ASPART 100 UNITS/ML 10ML VIAL ONE (16:23)
[2023-07-12] MEDS: INSULIN (LEVEMIR) 100 UNITS/ML UNITS SQ SCH (20:59)
[2023-07-12] MEDS: risperiDONE 1 MG TABLET PO SCH (21:00)
[2023-07-12] MEDS: THIAMINE HCL 100 MG TABLET (FP) PO SCH (21:00)
[2023-07-12] MEDS: QUEtiapine FUMARATE 100 MG TABLET (FP) PO SCH (21:00)
[2023-07-12] MEDS: MELATONIN 5 MG TABLETS PO SCH (21:00)
[2023-07-12] MEDS: ROSUVASTATIN CA 20 MG TABLET PO SCH (21:01)
[2023-07-12] MEDS: ATORVASTATIN CA 10 MG TABLET (FP) PO SCH (21:01)
[2023-07-13] MEDS: MAG HYDROX/AL HYDROX/SIMETH 30 ML UNIT-DOSE CUP PO PRN (00:43)
[2023-07-13] MEDS: LEVOTHYROXINE NA 100 MCG TABLET (FP) PO SCH (06:37)
[2023-07-13] MEDS: metFORMIN HCL 500 MG TABLET (FP) PO SCH ×2 (06:37→16:58)
[2023-07-13] MEDS: INSULIN SLIDING SCALE (NOVOLOG) 1 VIAL SQ SCH ×2 (06:38→16:59)
[2023-07-13] MEDS: PRENATAL VITAMINS W/ FOLIC ACID TABLET (FP) PO SCH (10:34)
[2023-07-13] MEDS: NICOTINE 7 MG/24 HOURS TOPICAL PATCH TD SCH (10:34)
[2023-07-13] MEDS: LOSARTAN POTASSIUM 25 MG TABLET PO SCH (10:34)
[2023-07-13] MEDS: ASPIRIN 81 MG CHEWABLE TABLETS PO SCH (10:34)
[2023-07-13] MEDS: GABAPENTIN 400 MG CAPSULE PO SCH ×2 (10:34→21:27)
[2023-07-13] MEDS: ATORVASTATIN CA 10 MG TABLET (FP) PO SCH (21:27)
[2023-07-13] MEDS: risperiDONE 1 MG TABLET PO SCH (21:27)
[2023-07-13] MEDS: QUEtiapine FUMARATE 100 MG TABLET (FP) PO SCH (21:27)
[2023-07-13] MEDS: MELATONIN 5 MG TABLETS PO SCH (21:27)
[2023-07-13] MEDS: hydrOXYzine PAMOATE 25 MG CAPSULE (FP) PO PRN (21:27)
[2023-07-13] MEDS: THIAMINE HCL 100 MG TABLET (FP) PO SCH (21:27)
[2023-07-13] MEDS: INSULIN (LEVEMIR) 100 UNITS/ML UNITS SQ SCH (21:56)
[2023-07-13] MEDS: ROSUVASTATIN CA 20 MG TABLET PO SCH (21:58)
[2023-07-14] MEDS: LEVOTHYROXINE NA 100 MCG TABLET (FP) PO SCH (06:55)
[2023-07-14] MEDS: metFORMIN HCL 500 MG TABLET (FP) PO SCH ×2 (06:55→16:38)
[2023-07-14] MEDS: INSULIN SLIDING SCALE (NOVOLOG) 1 VIAL SQ SCH ×2 (06:56→16:41)
[2023-07-14] MEDS: PRENATAL VITAMINS W/ FOLIC ACID TABLET (FP) PO SCH (10:09)
[2023-07-14] MEDS: ASPIRIN 81 MG CHEWABLE TABLETS PO SCH (10:09)
[2023-07-14] MEDS: GABAPENTIN 400 MG CAPSULE PO SCH ×2 (10:09→21:43)
[2023-07-14] MEDS: NICOTINE 7 MG/24 HOURS TOPICAL PATCH TD SCH (10:09)
[2023-07-14] MEDS: LOSARTAN POTASSIUM 25 MG TABLET PO SCH (10:09)
[2023-07-14] MEDS ORDERED: INSULIN (NOVOLOG) ASPART 100 UNITS/ML 10ML VIAL ONE (16:40)
[2023-07-14] MEDS: THIAMINE HCL 100 MG TABLET (FP) PO SCH (21:43)
[2023-07-14] MEDS: risperiDONE 1 MG TABLET PO SCH (21:43)
[2023-07-14] MEDS: ATORVASTATIN CA 10 MG TABLET (FP) PO SCH (21:43)
[2023-07-14] MEDS: ROSUVASTATIN CA 20 MG TABLET PO SCH (21:43)
[2023-07-14] MEDS: MELATONIN 5 MG TABLETS PO SCH (21:43)
[2023-07-14] MEDS: QUEtiapine FUMARATE 100 MG TABLET (FP) PO SCH (21:45)
[2023-07-14] MEDS: INSULIN (LEVEMIR) 100 UNITS/ML UNITS SQ SCH (21:47)
[2023-07-14] MEDS: MAG HYDROX/AL HYDROX/SIMETH 30 ML UNIT-DOSE CUP PO PRN (23:07)
[2023-07-14] MEDS: QUEtiapine FUMARATE 50 MG TABLET PO SCH (23:11)
[2023-07-15] MEDS: metFORMIN HCL 500 MG TABLET (FP) PO SCH ×2 (06:48→17:25)
[2023-07-15] MEDS: LEVOTHYROXINE NA 100 MCG TABLET (FP) PO SCH (06:48)
[2023-07-15] MEDS: INSULIN SLIDING SCALE (NOVOLOG) 1 VIAL SQ SCH ×2 (07:43→17:25)
[2023-07-15] MEDS: LOSARTAN POTASSIUM 25 MG TABLET PO SCH (10:26)
[2023-07-15] MEDS: GABAPENTIN 400 MG CAPSULE PO SCH ×2 (10:26→21:20)
[2023-07-15] MEDS: ASPIRIN 81 MG CHEWABLE TABLETS PO SCH (10:26)
[2023-07-15] MEDS: PRENATAL VITAMINS W/ FOLIC ACID TABLET (FP) PO SCH (10:26)
[2023-07-15] MEDS: NICOTINE 7 MG/24 HOURS TOPICAL PATCH TD SCH (10:27)
[2023-07-15] MEDS: risperiDONE 1 MG TABLET PO SCH (21:19)
[2023-07-15] MEDS: THIAMINE HCL 100 MG TABLET (FP) PO SCH (21:20)
[2023-07-15] MEDS: MELATONIN 5 MG TABLETS PO SCH (21:20)
[2023-07-15] MEDS: ATORVASTATIN CA 10 MG TABLET (FP) PO SCH (21:20)
[2023-07-15] MEDS: ROSUVASTATIN CA 20 MG TABLET PO SCH (21:20)
[2023-07-15] MEDS: QUEtiapine FUMARATE 50 MG TABLET PO SCH (21:20)
[2023-07-15] MEDS: INSULIN (LEVEMIR) 100 UNITS/ML UNITS SQ SCH (21:28)
[2023-07-15] MEDS ORDERED: QUEtiapine FUMARATE 50 MG TABLET PO SCH (22:00)
[2023-07-15] MEDS: MAG HYDROX/AL HYDROX/SIMETH 30 ML UNIT-DOSE CUP PO PRN (22:14)
[2023-07-16] MEDS: INSULIN SLIDING SCALE (NOVOLOG) 1 VIAL SQ SCH ×2 (06:57→16:32)
[2023-07-16] MEDS: metFORMIN HCL 500 MG TABLET (FP) PO SCH ×2 (06:58→16:32)
[2023-07-16] MEDS: LEVOTHYROXINE NA 100 MCG TABLET (FP) PO SCH (06:59)
[2023-07-16] MEDS: PRENATAL VITAMINS W/ FOLIC ACID TABLET (FP) PO SCH (09:53)
[2023-07-16] MEDS: ASPIRIN 81 MG CHEWABLE TABLETS PO SCH (09:53)
[2023-07-16] MEDS: LOSARTAN POTASSIUM 25 MG TABLET PO SCH (09:53)
[2023-07-16] MEDS: GABAPENTIN 400 MG CAPSULE PO SCH ×2 (09:53→21:10)
[2023-07-16] MEDS: NICOTINE 7 MG/24 HOURS TOPICAL PATCH TD SCH (09:55)
[2023-07-16] MEDS: THIAMINE HCL 100 MG TABLET (FP) PO SCH (21:09)
[2023-07-16] MEDS: risperiDONE 1 MG TABLET PO SCH (21:09)
[2023-07-16] MEDS: ATORVASTATIN CA 10 MG TABLET (FP) PO SCH (21:09)
[2023-07-16] MEDS: MELATONIN 5 MG TABLETS PO SCH (21:10)
[2023-07-16] MEDS: QUEtiapine FUMARATE 50 MG TABLET PO SCH (21:10)
[2023-07-16] MEDS: INSULIN (LEVEMIR) 100 UNITS/ML UNITS SQ SCH (21:11)
[2023-07-16] MEDS: ROSUVASTATIN CA 20 MG TABLET PO SCH (21:11)
[2023-07-17] MEDS: LEVOTHYROXINE NA 100 MCG TABLET (FP) PO SCH (06:48)
[2023-07-17] MEDS: metFORMIN HCL 500 MG TABLET (FP) PO SCH ×2 (06:48→16:47)
[2023-07-17] MEDS: INSULIN SLIDING SCALE (NOVOLOG) 1 VIAL SQ SCH ×2 (06:49→16:47)
[2023-07-17] MEDS: GABAPENTIN 400 MG CAPSULE PO SCH ×2 (10:25→21:08)
[2023-07-17] MEDS: ASPIRIN 81 MG CHEWABLE TABLETS PO SCH (10:25)
[2023-07-17] MEDS: LOSARTAN POTASSIUM 25 MG TABLET PO SCH (10:25)
[2023-07-17] MEDS: PRENATAL VITAMINS W/ FOLIC ACID TABLET (FP) PO SCH (10:25)
[2023-07-17] MEDS: NICOTINE 7 MG/24 HOURS TOPICAL PATCH TD SCH (10:26)
[2023-07-17] MEDS: ATORVASTATIN CA 10 MG TABLET (FP) PO SCH (21:08)
[2023-07-17] MEDS: risperiDONE 1 MG TABLET PO SCH (21:09)
[2023-07-17] MEDS: ROSUVASTATIN CA 20 MG TABLET PO SCH (21:09)
[2023-07-17] MEDS: QUEtiapine FUMARATE 50 MG TABLET PO SCH (21:09)
[2023-07-17] MEDS: THIAMINE HCL 100 MG TABLET (FP) PO SCH (21:09)
[2023-07-17] MEDS: INSULIN (LEVEMIR) 100 UNITS/ML UNITS SQ SCH (21:12)
[2023-07-17] MEDS: MELATONIN 5 MG TABLETS PO SCH (21:12)
[2023-07-18] MEDS: LEVOTHYROXINE NA 100 MCG TABLET (FP) PO SCH (06:39)
[2023-07-18] MEDS: INSULIN SLIDING SCALE (NOVOLOG) 1 VIAL SQ SCH ×2 (06:39→16:41)
[2023-07-18] MEDS: metFORMIN HCL 500 MG TABLET (FP) PO SCH ×2 (06:39→16:41)
[2023-07-18] MEDS: PRENATAL VITAMINS W/ FOLIC ACID TABLET (FP) PO SCH (10:07)
[2023-07-18] MEDS: NICOTINE 7 MG/24 HOURS TOPICAL PATCH TD SCH (10:07)
[2023-07-18] MEDS: GABAPENTIN 400 MG CAPSULE PO SCH ×2 (10:07→21:26)
[2023-07-18] MEDS: LOSARTAN POTASSIUM 25 MG TABLET PO SCH (10:07)
[2023-07-18] MEDS: ASPIRIN 81 MG CHEWABLE TABLETS PO SCH (10:07)
[2023-07-18] MEDS: MELATONIN 5 MG TABLETS PO SCH (21:25)
[2023-07-18] MEDS: THIAMINE HCL 100 MG TABLET (FP) PO SCH (21:25)
[2023-07-18] MEDS: ATORVASTATIN CA 10 MG TABLET (FP) PO SCH (21:26)
[2023-07-18] MEDS: QUEtiapine FUMARATE 50 MG TABLET PO SCH (21:26)
[2023-07-18] MEDS: ROSUVASTATIN CA 20 MG TABLET PO SCH (21:26)
[2023-07-18] MEDS: risperiDONE 1 MG TABLET PO SCH (21:26)
[2023-07-18] MEDS: INSULIN (LEVEMIR) 100 UNITS/ML UNITS SQ SCH (21:33)
[2023-07-19] MEDS: LEVOTHYROXINE NA 100 MCG TABLET (FP) PO SCH (06:34)
[2023-07-19] MEDS: metFORMIN HCL 500 MG TABLET (FP) PO SCH (06:34)
[2023-07-19] MEDS: INSULIN SLIDING SCALE (NOVOLOG) 1 VIAL SQ SCH (06:36)
[2023-07-19] MEDS ORDERED: INSULIN (NOVOLOG) ASPART 100 UNITS/ML 10ML VIAL ONE ×2 (06:37→07:23)
[2023-07-19 07:20] VITALS: BP 110/63; PULSE 86; RESP 18; TEMP 97.3
[2023-07-19] MEDS: PRENATAL VITAMINS W/ FOLIC ACID TABLET (FP) PO SCH (10:12)
[2023-07-19] MEDS: ASPIRIN 81 MG CHEWABLE TABLETS PO SCH (10:13)
[2023-07-19] MEDS: LOSARTAN POTASSIUM 25 MG TABLET PO SCH (10:13)
[2023-07-19] MEDS: NICOTINE 7 MG/24 HOURS TOPICAL PATCH TD SCH (10:13)
[2023-07-19] MEDS: GABAPENTIN 400 MG CAPSULE PO SCH (10:13)
== END 2023-07-19 11:08 | disposition home or self-care (01) | DRG 895 ==
LOC: YASAS 19:10 → Y5N 22:20
PROVIDERS: ADMIT Allergy & Immunology; ATTEND Psychiatry & Neurology Pain Medicine
PROC: HZ42ZZZ Group Counseling for Substance Abuse Treatment, Cognitive-Behavioral (ICD-10-PCS; principal; 2023-07-05)
DX: F10.20 Alcohol dependence, uncomplicated (principal); F14.20 Cocaine dependence, uncomplicated; F12.20 Cannabis dependence, uncomplicated; F17.210 Nicotine dependence, cigarettes, uncomplicated; F25.0 Schizoaffective disorder, bipolar type; E78.5 Hyperlipidemia, unspecified; E03.9 Hypothyroidism, unspecified; I25.10 Atherosclerotic heart disease of native coronary artery without angina pectoris; I10 Essential (primary) hypertension; Z95.5 Presence of coronary angioplasty implant and graft; J44.9 Chronic obstructive pulmonary disease, unspecified; E11.9 Type 2 diabetes mellitus without complications; Z79.4 Long term (current) use of insulin; Z88.8 Allergy status to other drugs, medicaments and biological substances
CPT/HCPCS: 36415; 80053; 81003; 82962; 83036; 85027; 86780; 86803; 87522; 87635; 93005; 93010